=== PATIENT | female | born 1955 | race Hispanic/Latino ===

== ENCOUNTER 2017-06-24 06:20 | Emergency (ER) | payer OTHER ==
[~2017-06-24] VITALS: Ht 162.6 cm; Wt 81.6 kg
[~2017-06-24 06:20] MED LIST: ACYCLOVIR200 MG PO; AMLODIPINE BESY10 MG PO; Aspirin PO; CEFUROXIME250 MG PO; CIPRO500 MG PO; COLACE100 MG PO; DIFLUCAN200 MG PO; DIFLUNISAL500 MG PO; DITROPAN XL10 MG PO; GABAPENTIN100 MG PO; GLUCOTROL XL5 MG PO; JANUMET 50-1,01 EACH PO; JANUMET XR 50-1 EAC1 PO; KEFLEX500 MG PO; KETOROLAC TROME10 MG PO; LEVAQUIN500 MG PO; LOPRESSOR25 MG PO; LOSARTAN POTASS25 MG PO; LOSARTAN-HCTZ1 EACH PO; METFORMIN HCL500 MG PO; METOPROLOL TART25 MG PO; OMEPRAZOLE40 MG PO; PREDNISONE5 MG PO; PYRIDIUM200 MG PO; SUCRALFATE1 GM PO; TRICOR145 MG PO; ULTRAM50 MG PO; VYTORIN 10-401 EACH PO
--- OUTSIDE RECORDS SUMMARY | 2017-06-24 06:23 | XMS REPORT ---
[facility] Address Unknown Phone Unavailable Care Team Providers Care Nail Kegger Name Role Phone QUIANA WHALEY Unavailable Unavailable Problems This patient has no known problems. Allergies, Adverse Reactions, Alerts This patient has no known allergies or adverse reactions. Medications This patient has no known medications. Results Test Description Test Time Test Comments Text Results Atomic Results Result Comments CHEST SINGLE (PORTABLE) [place] [address] Patient Name: CRISPIN LANGLEY MR #: [id number] : 1955 Age/Sex: 61/F Req #: [id number] Adm Physician: Ordered by: QUIANA WHALEY MD Report #: [id number] Location: ER Room/Bed: Procedure: [id number] DX/CHEST SINGLE (PORTABLE) Exam Date: Exam Time: REPORT STATUS: Signed PROCEDURE: CHEST SINGLE ( PORTABLE) COMPARISON: Chest x-ray 12/19/16. INDICATIONS: COUGH FINDINGS: LUNGS: No significant pulmonary parenchymal abnormalities. Normal pulmonary vascularity. CARDIAC: Normal size cardiac silhouette. MEDIASTINUM: Normal. PLEURA: Normal. BONES: No focal osseous lesions. OTHER: Negative. CONCLUSION: No acute cardiopulmonary process. Dictated by: Gildardo Najera M.D. on 2016 at 19:17 Electronically approved by: Gildardo Najera M.D. on 10/04 /2017 at 19:17 Dictated By: GILDARDO NAJERA MD 16 Transcribed By : KALYAN on 02/17/171916 COPY TO: QUIANA WHALEY MD
[2017-06-24 07:04] LABS: BASOPHILS % 0.3 % (0.0-1.0); EOSINOPHILS % 0.2 % (0.0-6.0); HEMATOCRIT 35.6 % (34.2-44.1); HEMOGLOBIN 11.9 g/dL (12.0-16.0); LYMPHOCYTES % 16.2 % (18.0-39.1); MEAN CORPUSCULAR HEMOGLOBIN 28.7 pg (28-32); MEAN CORPUSCULAR HGB CONC 33.4 g/dL (31-35); MEAN CORPUSCULAR VOLUME 85.8 fL (81-99); MONOCYTES # (AUTO) 0.2 (0.2-0.8); MONOCYTES % 3.2 % (4.4-11.3); NEUTROPHILS # (AUTO) 5.1 (2.1-6.9); NEUTROPHILS % 79.6 % (38.7-80.0); PLATELET COUNT 183 x10e3/uL (140-360); RED BLOOD COUNT 4.15 x10e6/uL (3.6-5.1); RED CELL DISTRIBUTION WIDTH 14.6 % (11.7-14.4)
[2017-06-24] MEDS ORDERED: ALBUTEROL/IPRATROPIUM 3 ML NEB NEB ONE (07:15)
[2017-06-24 07:18] LABS: ALANINE AMINOTRANSFERASE 55 IU/L (0-55); ALBUMIN 3.8 g/dL (3.5-5.0); ALKALINE PHOSPHATASE 93 IU/L (40-150); ANION GAP 21.7 mmol/L (8-16); BLOOD UREA NITROGEN 18 mg/dL (7-26); BUN/CREATININE RATIO 17 (6-25); CALCIUM 9.4 mg/dL (8.4-10.2); CARBON DIOXIDE 19 mmol/L (22-29); CHLORIDE 100 mmol/L (98-107); CREATINE KINASE 165 IU/L (29-168); CREATININE, SERUM 1.09 mg/dL (0.57-1.11); EST GLOMERULAR FILTRATION RATE 51 ML/MIN (60-); POTASSIUM 3.7 mmol/L (3.5-5.1); SODIUM 137 mmol/L (136-145)
[2017-06-24 07:23] LABS: GLUCOSE 446 mg/dL (74-118)
[2017-06-24] MEDS ORDERED: INSULIN REGULAR, HUMAN 100 UNIT/1 ML 3ML VIAL IV ONE (07:30)
[2017-06-24] MEDS: SODIUM CHLORIDE 0.9% 1000ML 1,000 ML IV SCH ×2 (07:33→07:53)
--- NOTE | 2017-06-24 07:37 | Diagnostic Imaging Report ---
PROCEDURE: A single AP view of the chest. COMPARISON: Portable chest 02/17/2017. INDICATIONS: SHORTNESS OF BREATH. COUGH FINDINGS: Lines/tubes: None. Lungs: The lungs are well inflated and clear. There is no evidence of pneumonia or pulmonary edema. Bibasilar atelectasis. Pleura: There is no pleural effusion or pneumothorax. Heart and mediastinum: The heart and the mediastinum are unremarkable. Bones: No acute bony abnormality. Degenerative changes of the thoracic spine. IMPRESSION: No acute radiographic abnormality. Dictated by: Brendan Tracey M.D. on 06/24/2017 at 7:47 Electronically approved by: Brendan Tracey M.D. on 06/24/2017 at 7:47
[2017-06-24] MEDS ORDERED: SODIUM CHLORIDE 0.9% 1000ML 1,000 ML ONE (07:40)
[2017-06-24] MEDS ORDERED: SODIUM CHLORIDE 0.9% 1000ML 1,000 ML IV SCH (07:45)
[2017-06-24 10:09] LABS: ABG HCO3 22 mmol/L (23-28); ABG PCO2 34 mmHg (41-51); ABG PH 7.43 (7.31-7.41); ABG PO2 74 mmHg (80-105)
== END 2017-06-24 10:19 | disposition home or self-care (01) ==
LOC: ER 06:20
DX: R07.9 Chest pain, unspecified (principal); R06.02 Shortness of breath
CPT/HCPCS: 36415; 36600; 71045; 80053; 82550; 82553; 82805; 83880; 84484; 85025; 87400; 93005; 94640; 99284; J7030

== ENCOUNTER 2017-09-23 03:05 | Emergency (ER) | payer OTHER ==
[~2017-09-23] VITALS: Ht 162.6 cm; Wt 83.9 kg
--- OUTSIDE RECORDS SUMMARY | 2017-09-23 03:08 | XMS REPORT | Continuity of Care Document ---
Author Author [facility] Organization [facility] Address [address] [place] [address] Phone Unavailable Care Team Providers Care Clinic Clerk Name Role Phone NONSTAFF PCP Unavailable Insurance Providers Guarantor Crispin Cantu Address [address] [place] [address] Email [email or web address] Health Choice Excha Policy Number [id number] Subscriber's Name Crispin Cantu Relationship 18 Self / Same As Patient Advance Directives Directive Response Recorded Date/Time Does the patient have an advance directive? No 01/29/17 11:17am If yes, is advance directive on file with [facility]? No 01/29/17 11:17am If not on file with [facility] will patient provide a copy? No 01/29/17 11:17am Do you have a Directive to Physician? No 06/24/17 6:27am Do you have a Medical Power of Storeperson? No 06/24/17 6:27am Do you have an out of hospital Do Not Resuscitate Order? No 06/24/17 6:27am Do you have any special needs we should be aware of? No 06/24/17 6:27am Do you have a support person here with you today? Yes 06/24/17 6:27am Did patient receive Notice of Privacy Practices? Yes 06/24/17 6:27am Did patient receive patient rights and responsibilities? Yes 06/24/17 6:27am Problems Medical Problem Onset Date Status Anxiety Unknown Acute Bronchitis Unknown Acute Chest pain 11/27/2015 Acute Dehydration 03/03/2015 Acute Diabetes 11/27/2015 Acute Gastroenteritis 03/03/2015 Acute Near syncope Unknown UTI (urinary tract infection) 03/03/2015 Acute UTI (urinary tract infection) Unknown Ureteral stone 02/14/2015 Acute Medications Current Home Medications Medication Dose Units Route Directions Days Qty Instructions Start Date Docusate Sodium (Colace) 100 Mg Cap 100 Mg Oral Twice A Day 30 Cap Fenofibrate (Tricor) 145 Mg Tab 145 Mg Oral Daily 30 Tab 11/30/15 Gabapentin 100 Mg Capsule 100 Mg Oral Every 12 Hours Levofloxacin (Levaquin) 500 Mg Tablet 500 Mg Oral Daily Losartan/Hydrochlorothiazide (Losartan-Hctz 50-12.5 Mg Tab) 1 Each Tablet Oral Daily Metformin Hcl 500 Mg Tablet 1,000 Mg Oral Twice A Day 60 Tab Omeprazole 40 Mg Capsule.dr 40 Mg Oral Daily Tramadol Hcl (Ultram) 50 Mg Tablet 50 Mg Oral Every 4 Hours as needed for Pain Past Home Medications Medication Directions Ordered Status Acyclovir 200 Mg Capsule, 400 Mg Oral Three Times A Day Discontinued Amlodipine Besylate 10 Mg Tablet, 10 Mg Oral Every Morning Discontinued Aspirin 325 Mg Tabec, 81 Mg Oral Every Morning 11/30/15 Discontinued Cefuroxime Axetil (Cefuroxime) 250 Mg Tablet, 500 Mg Oral Every 12 Hours 08/31 Discontinued Cephalexin Monohydrate (Keflex) 500 Mg Capsule, 500 Mg Oral Every 6 Hours Discontinued Ciprofloxacin Hcl (Cipro) 500 Mg Tablet, 500 Mg Oral Every 12 Hours Discontinued Diflunisal (Dolobid) 500 Mg Tablet, 500 Mg Oral Daily Discontinued Diflunisal (Dolobid) 500 Mg Tablet, 500 Mg Oral Bid' Discontinued Ezetimibe/Simvastatin (Vytorin 10-40 Mg Tablet) 1 Each Tablet, 1 Tab Oral Bedtime Discontinued Glipizide (Glucotrol Xl*) 5 Mg Tab.er.24, 10 Mg Oral Every Morning Discontinued Losartan Potassium 25 Mg Tablet, 25 Mg Oral Daily Discontinued Losartan/Hydrochlorothiazide (Losartan-Hctz 50-12.5 Mg Tab) 1 Each Tablet, Oral Daily Discontinued Metformin Hcl 500 Mg Tablet, 500 Mg Oral Twice A Day Discontinued Metoprolol Tartrate 25 Mg Tablet, 12.5 Mg Oral Daily 11/30/15 Discontinued Oxybutynin Chloride (Ditropan Xl) 10 Mg Tab.er.24, 10 Mg Oral Daily Discontinued Phenazopyridine Hcl (Pyridium) 200 Mg Tablet, 200 Mg Oral Three Times A Day as needed for Bladder Spasms Discontinued Prednisone 5 Mg Tablet, 15 Mg Oral Daily Discontinued Sitagliptin Phos/Metformin Hcl (Janumet Xr 50-1,000 Mg Tablet) 1 Each Tbmp.24hr , Oral Twice A Day Discontinued Sitagliptin Phos/Metformin Hcl (Janumet 50-1,000 Mg Tablet) 1 Each Tablet, 1 Tab Oral Twice A Day Discontinued Sucralfate 1 Gm Tablet, 1 Gm Oral Before Meals And At Bedtime Discontinued Social History Social History Problem Response Recorded Date/Time Onset Date Status Hx Psychiatric Problems No 01/29/2017 11:17am Not Applicable Not Applicable Hx Eating Disorder No 01/29/2017 11:17am Not Applicable Not Applicable Hx Substance Use Disorder No 01/29/2017 11:17am Not Applicable Not Applicable Hx Depression No 01/29/2017 11:17am Not Applicable Not Applicable Hx Alcohol Use No 01/29/2017 11:17am Not Applicable Not Applicable Hx Substance Use Treatment No 01/29/2017 11:17am Not Applicable Not Applicable Hx Physical Abuse No 01/29/2017 11:17am Not Applicable Not Applicable Smoking Status Start Date Stop Date Never Smoker Hospital Discharge Instructions No hospital discharge instruction information available. Plan of Care Discharge Date 06/24/17 10:19am Disposition HOME, SELF-CARE Condition at Discharge Stable Instructions/Education Provided Generalized Anxiety Disorder Hyperglycemia Forms Provided Work/School Excuse Prescriptions See Medication Section Functional Status No functional status information available. Allergies, Adverse Reactions, Alerts Allergen Type Severity Reaction Status Last Updated Hydrocodone Allergy Unknown itching Active 06/24/17 Tramadol Allergy Unknown itching Active 06/24/17 Ketorolac Allergy Unknown itching Active 06/24/17 Immunizations No immunization information available. Vital Signs Acute Vital Signs Vital Response Date/Time Temperature (Fahrenheit) 97.3 degrees F (97.6 - 99.5) 02/01/2017 11:53am Pulse Pulse Rate (adult) 66 bpm (60 - 90) 06/24/2017 7:50am Respiratory Rate 18 bpm (12 - 24) 06/24/2017 7:50am Blood Pressure 104/78 mm Hg 02/17/2017 7:22pm Height 5 ft 4 in 06/24/2017 6:25am Weight 180 lb 06/24/2017 6:25am Body Mass Index 30.9 kg/m^2 06/24/2017 6:25am Results Laboratory Results Test Name Result Units Flags Reference Collection Date/Time Result Date/ Time Comments Amylase Level 42 U/L 25-125 10/11/2016 11:25am 10/11/2016 12:04pm Lipase 34 U/L 8-78 10/11/2016 11:25am 10/11/2016 12:04pm Urine Opiates Screen POSITIVE H NEGATIVE 12/19/2016 6:36am 12/19/2016 7:08am This test provides only a screen. Positive results should be repeated by a confirmatory test. Urine Barbiturates Screen NEGATIVE NEGATIVE 12/19/2016 6:36am 2016 7:08am ALL TESTS PERFORMED MANUALLY ON SIGNIFY ER TEST Urine Amphetamines Screen NEGATIVE NEGATIVE 12/19/2016 6:36am 2016 7:08am Urine Benzodiazepines Screen NEGATIVE NEGATIVE 12/19/2016 6:36am 09/2016 7:08am Urine Cocaine Screen NEGATIVE NEGATIVE 12/19/2016 6:36am 12/19/2016 7 :08am Urine Cannabinoids Screen NEGATIVE NEGATIVE 12/19/2016 6:36am 2016 7:08am THESE RESULTS ARE FOR MEDICAL TREATMENT ONLY *THIS REPORT CONTAINS UNCONFIRMED SCREENING RESULTS* POSITIVE RESULTS WILL BE CONFIRMED BY REFERENCE LAB UPON REQUEST CUT-OFF DRUG CLASS CONCENTRATION ng/mL Amphetamines 1000 Methamphetamines 1000 Cocaine 300 Opiate 300 Phencyclidine 25 Cannabinoid 50 Barbiturates 300 Benzodiazepine 300 Methadone 300 Acetaminophen Level < 3 ug/mL L 1012/19/2016 6:36am 12/19/2016 7: 34am Thyroid Stimulating Hormone (TSH) 2.143 uIU/mL 0.350-4.940 12/19/2016 6: 36am 12/19/2016 8:21am Ethyl Alcohol Level < 10.0 mg/dL 0.0-10.0 12/19/2016 6:36am 12/19/2016 7:30am Salicylates Level < 5.0 mg/dL 0-30 12/19/2016 6:36am 12/19/2016 7:30am Bedside Glucose 200 mg/dL H 70-120 02/01/2017 11:37am 02/01/2017 11: 46am Meter ID: [id number] Urine Color YELLOW YELLOW 02/17/2017 3:00pm 02/17/2017 6:08pm Urine Clarity CLEAR CLEAR 02/17/2017 3:00pm 02/17/2017 6:08pm Urine Specific [place] 1.020 1.010-1.025 02/17/2017 3:00pm 2016 6:08pm Urine pH 5 5 - 7 02/17/2017 3:00pm 02/17/2017 6:08pm Urine Leukocyte Esterase 2+ H NEGATIVE 02/17/2017 3:00pm 02/17/2017 6: 08pm Urine Nitrite NEGATIVE NEGATIVE 02/17/2017 3:00pm 02/17/2017 6:08pm Urine Protein 1+ H NEGATIVE 02/17/2017 3:00pm 02/17/2017 6:08pm Urine Glucose (UA) NEGATIVE NEGATIVE 02/17/2017 3:00pm 02/17/2017 6: 08pm Urine Ketones NEGATIVE NEGATIVE 02/17/2017 3:00pm 02/17/2017 6:08pm Urine Urobilinogen 0.2 mg/dL 0.2 - 1 02/17/2017 3:00pm 02/17/2017 6: 08pm Urine Bilirubin 1+ H NEGATIVE 02/17/2017 3:00pm 02/17/2017 6:08pm Urine Blood 4+ H NEGATIVE 02/17/2017 3:00pm 02/17/2017 6:08pm Urine WBC 21-50 /HPF H 0-5 02/17/2017 3:00pm 02/17/2017 6:28pm Urine RBC 11-20 /HPF H 0-5 02/17/2017 3:00pm 02/17/2017 6:28pm Urine Bacteria FEW /HPF NONE 02/17/2017 3:00pm 02/17/2017 6:28pm Urine Epithelial Cells FEW /LPF NONE 02/17/2017 3:00pm 02/17/2017 6: 28pm Urine Transitional Epithelial Cells FEW H NONE 02/17/2017 3:00pm 02/17 6:28pm Urine Hyaline Casts 2-5 H 0-1 02/17/2017 3:00pm 02/17/2017 6:28pm White Blood Count 6.34 x10e3/uL 4.8-10.8 06/24/2017 6:43am 06/24/2017 7 :08am Red Blood Count 4.15 x10e6/uL 3.6-5.1 06/24/2017 6:43am 06/24/2017 7: 08am Hemoglobin 11.9 g/dL L 12.0-16.0 06/24/2017 6:43am 06/24/2017 7:08am Hematocrit 35.6 % 34.2-44.1 06/24/2017 6:43am 06/24/2017 7:08am Mean Corpuscular Volume 85.8 fL 81-99 06/24/2017 6:43am 06/24/2017 7: 08am Mean Corpuscular Hemoglobin 28.7 pg 28-32 06/24/2017 6:43am 06/24/2017 7:08am Mean Corpuscular Hemoglobin Concent 33.4 g/dL 31-35 06/24/2017 6:43am 06/24/2017 7:08am Red Cell Distribution Width 14.6 % H 11.7-14.4 06/24/2017 6:43am 2017 7:08am Platelet Count 183 x10e3/uL 140-360 06/24/2017 6:43am 06/24/2017 7: 08am Neutrophils (%) (Auto) 79.6 % 38.7-80.0 06/24/2017 6:43am 06/24/2017 7: 08am Lymphocytes (%) (Auto) 16.2 % L 18.0-39.1 06/24/2017 6:43am 06/24/2017 7 :08am Monocytes (%) (Auto) 3.2 % L 4.4-11.3 06/24/2017 6:43am 06/24/2017 7: 08am Eosinophils (%) (Auto) 0.2 % 0.0-6.0 06/24/2017 6:43am 06/24/2017 7: 08am Basophils (%) (Auto) 0.3 % 0.0-1.0 06/24/2017 6:43am 06/24/2017 7:08am IM GRANULOCYTES % 0.5 % 0.0-1.0 06/24/2017 6:43am 06/24/2017 7:08am Neutrophils # (Auto) 5.1 2.1-6.9 06/24/2017 6:43am 06/24/2017 7:08am Lymphocytes # (Auto) 1.0 1.0-3.2 06/24/2017 6:43am 06/24/2017 7:08am Monocytes # (Auto) 0.2 0.2-0.8 06/24/2017 6:43am 06/24/2017 7:08am Eosinophils # (Auto) 0.0 0.0-0.4 06/24/2017 6:43am 06/24/2017 7:08am Basophils # (Auto) 0.0 0.0-0.1 06/24/2017 6:43am 06/24/2017 7:08am Absolute Immature Granulocyte (auto 0.03 x10e3/uL 0-0.1 06/24/2017 6: 43am 06/24/2017 7:08am Sodium Level 137 mmol/L 136-145 06/24/2017 6:43am 06/24/2017 7:23am Potassium Level 3.7 mmol/L 3.5-5.1 06/24/2017 6:43am 06/24/2017 7:23am Chloride Level 100 mmol/L 98-107 06/24/2017 6:43am 06/24/2017 7:23am Influenza Virus Types A,B Antigen NEGATIVE NEGATIVE 06/24/2017 7:07am 06/24/2017 7:42am Carbon Dioxide Level 19 mmol/L L 22-29 06/24/2017 6:43am 06/24/2017 7: 23am Anion Gap 21.7 mmol/L H 8-16 06/24/2017 6:43am 06/24/2017 7:23am Blood Urea Nitrogen 18 mg/dL 7-06/24/2017 6:43am 06/24/2017 7:23am Creatinine 1.09 mg/dL 0.57-1.11 06/24/2017 6:43am 06/24/2017 7:23am BUN/Creatinine Ratio 17 6-25 06/24/2017 6:43am 06/24/2017 7:23am Estimat Glomerular Filtration Rate 51 ML/MIN L 60- 06/24/2017 6:43am 12/2017 7:23am Ranges were taken from the National Kidney Disease Education Program and the National Kid[employer] Foundation literature. Reference ranges: 60 or greater: Normal 16-59 (for 3 consecutive months): Chronic kidney disease 15 or less: Kidney failure Glucose Level 446 mg/dL *H 74-118 06/24/2017 6:43am 06/24/2017 7:23am Results called to JAMIN AGUILERA at 0722 on 06/24/17 by Elo Bansal. RB OK. Calcium Level 9.4 mg/dL 8.4-10.2 06/24/2017 6:43am 06/24/2017 7:23am Total Bilirubin 0.6 mg/dL 0.2-1.2 06/24/2017 6:43am 06/24/2017 7:23am Aspartate Amino Transf (AST/SGOT) 31 IU/L 5-34 06/24/2017 6:43am 2017 7:23am Alanine Aminotransferase (ALT/SGPT) 55 IU/L 0-55 06/24/2017 6:43am 12/2017 7:23am Total Protein 7.8 g/dL 6.5-8.1 06/24/2017 6:43am 06/24/2017 7:23am Albumin 3.8 g/dL 3.5-5.0 06/24/2017 6:43am 06/24/2017 7:23am Globulin 4.0 g/dL H 2.3-3.5 06/24/2017 6:43am 06/24/2017 7:23am Albumin/Globulin Ratio 1.0 0.8-2.0 06/24/2017 6:43am 06/24/2017 7: 23am Alkaline Phosphatase 93 IU/L 40-150 06/24/2017 6:43am 06/24/2017 7: 23am B-Type Natriuretic Peptide 46.3 pg/mL 0-100 06/24/2017 6:43am 2017 7:35am Creatine Kinase 165 IU/L 29-168 06/24/2017 6:43am 06/24/2017 7:23am Creatine Kinase MB 1.40 ng/mL 0.00-5.00 06/24/2017 6:43am 06/24/2017 7: 35am Troponin I < 0.001 ng/mL 0-0.300 06/24/2017 6:43am 06/24/2017 7:35am Arterial Blood pH 7.43 H 7.31-7.41 06/24/2017 9:55am 06/24/2017 10: 10am Arterial Blood Partial Pressure CO2 34 mmHg L 41-51 06/24/2017 9:55am 10:10am Arterial Blood Partial Pressure O2 74 mmHg L 80-105 06/24/2017 9:55am 10:10am Arterial Blood HCO3 22 mmol/L L 23-28 06/24/2017 9:55am 06/24/2017 10: 10am Arterial Blood Base Excess -2.0 mmol/L -2 - 3 06/24/2017 9:55am 2017 10:10am Arterial Blood Oxygen Saturation 95.0 % 95-98 06/24/2017 9:55am 2017 10:10am Procedures Procedure Status Date Provider(s) STRAPPING OF KNEE Completed 12/09/16 TANI LACEY MD SUPPLEMENT PELVIC SUBCU/FASCIA W SYNTH SUB, OPEN Completed 01/29/17 JANETT CAR MD SUPPLEMENT VAGINA WITH SYNTHETIC SUBSTITUTE, OPEN APPROACH Completed JANETT CAR MD FLUOROSCOPY KIDNEY, URETER, BLADDER, L W L OSM CONTRAST Completed 01/29/17 JANETT CAR MD FLUOROSCOPY KIDNEY, URETER, BLADDER, R W L OSM CONTRAST Completed 01/29/17 JANETT CAR MD DRAINAGE OF BLADDER WITH DRAINAGE DEVICE, ENDO Completed 01/29/17 JANETT CAR MD Computed tomography of abdomen and pelvis with contrast Active 10/11/16 QUIANA WHALEY MD Encounters Encounter Location Arrival/Admit Date Discharge/Depart Date Attending Provider Departed Emergency Room [facility] 06/24/17 6:20am 10:19am KULWINDER KUMAR MD Departed Emergency Room [facility] 02/17/17 2:47pm 7:29pm QUIANA WHALEY MD Discharged [facility]patient [facility] 01/29/17 10:25am 1:08pm MARILYN OLIVIA MD Departed Emergency Room [facility] 12/19/16 5:55am 3:02pm QUIANA WHALEY MD Departed Emergency Room [facility] 12/09/16 6:12pm 8:30pm QUIANA WHALEY MD Departed Emergency Room [facility] 10/11/16 11:00am 10/11 2:33pm QUIANA WHLAEY MD
[2017-09-23] MEDS ORDERED: ACETAMIN/BUTALBITAL/CAFFEINE TAB PO ONE (03:15)
[2017-09-23] MEDS ORDERED: METOCLOPRAMIDE HCL 10 MG/2ML VIAL IV ONE (03:15)
[2017-09-23] MEDS ORDERED: DIPHENHYDRAMINE HCL INJ 50 MG/ML VIAL IV ONE (03:15)
[2017-09-23] MEDS ORDERED: SODIUM CHLORIDE 0.9% 1000ML 1,000 ML IV ONE (03:15)
[2017-09-23 03:36] LABS: BASOPHILS % 0.5 % (0.0-1.0); EOSINOPHILS # (AUTO) 0.3 (0.0-0.4); EOSINOPHILS % 4.4 % (0.0-6.0); HEMATOCRIT 33.5 % (34.2-44.1); HEMOGLOBIN 11.1 g/dL (12.0-16.0); LYMPHOCYTES % 33.6 % (18.0-39.1); MEAN CORPUSCULAR HEMOGLOBIN 28.2 pg (28-32); MEAN CORPUSCULAR HGB CONC 33.1 g/dL (31-35); MONOCYTES # (AUTO) 0.4 (0.2-0.8); MONOCYTES % 7.4 % (4.4-11.3); NEUTROPHILS # (AUTO) 3.2 (2.1-6.9); NEUTROPHILS % 53.6 % (38.7-80.0); PLATELET COUNT 168 x10e3/uL (140-360); RED BLOOD COUNT 3.94 x10e6/uL (3.6-5.1)
[2017-09-23 03:46] LABS: BILIRUBIN,URINE NEGATIVE (NEGATIVE); CLARITY,URINE CLEAR (CLEAR); COLOR,URINE YELLOW (YELLOW); KETONES,URINE NEGATIVE (NEGATIVE); LEUKOCYTE ESTERASE ,URINE NEGATIVE (NEGATIVE); NITRITE,URINE NEGATIVE (NEGATIVE); PROTEIN,URINE DIPSTICK NEGATIVE (NEGATIVE); URINE UROBILINOGEN 0.2 mg/dL (0.2 - 1)
[2017-09-23 03:51] LABS: ANION GAP 13.9 mmol/L (8-16); BLOOD UREA NITROGEN 16 mg/dL (7-26); BUN/CREATININE RATIO 19 (6-25); CALCIUM 9.3 mg/dL (8.4-10.2); CARBON DIOXIDE 22 mmol/L (22-29); CHLORIDE 107 mmol/L (98-107); CREATININE, SERUM 0.84 mg/dL (0.57-1.11); EST GLOMERULAR FILTRATION RATE > 60 ML/MIN (60-); GLUCOSE 119 mg/dL (74-118); POTASSIUM 3.9 mmol/L (3.5-5.1); SODIUM 139 mmol/L (136-145)
[2017-09-23 04:04] LABS: BACTERIA,URINE RARE /HPF; EPITHELIAL CELLS,URINE FEW /LPF; TRANSITIONAL EPI CELLS,URINE RARE; WBC,URINE (MAN) 0-5 /HPF (0-5)
--- NOTE | 2017-09-23 04:40 | Diagnostic Imaging Report ---
EXAMINATION: Head CT HISTORY: Left-sided headache for last 7 days COMPARISON: Head CT of 07/17/2016 and brain MRI 07/18/2016 TECHNIQUE: Multidetector axial images were obtained without contrast from the foramen magnum to the vertex . The images were reconstructed using brain and bone algorithms. Thin section brain images were reformatted into coronal and sagittal planes. Intravenous contrast: None. Motion/streaking artifact limits the evaluation of the skull base and posterior cranial fossa. FINDINGS: Parenchyma: 1. A few scattered white matter hypodensities, most likely minimal nonspecific chronic microvascular ischemic changes. 2. No mass or hemorrhage. No CT evidence of acute territorial vascular insult. Extra-axial spaces:No abnormal density. No extra-axial fluid collections Brain volume: Normal for age. Ventricles: No hydrocephalus or displacement. Arteries: No density suggestive of thrombus. Dural sinuses: No abnormal density. Extra-axial spaces: No abnormal density. Foramen magnum: No mass, Chiari malformation, or basilar invagination. Sella: No obvious mass. Paranasal/mastoid sinuses: Imaged portions unremarkable. Skull/Scalp: No lytic or blastic lesions. No fractures. IMPRESSION: 1. No acute intracranial abnormality. 2. Minimal chronic microvascular ischemic changes, grossly unchanged from prior head CT on 07/17/2016 and MRI on 07/18/16 Signed by: Dr. Rocio Anderson M.D. on 09/23/2017 4:36 AM
== END 2017-09-23 04:55 | disposition home or self-care (01) ==
LOC: ER 03:05
DX: G44.219 Episodic tension-type headache, not intractable (principal); I10 Essential (primary) hypertension; E11.40 Type 2 diabetes mellitus with diabetic neuropathy, unspecified; E78.00 Pure hypercholesterolemia, unspecified; K21.9 Gastro-esophageal reflux disease without esophagitis; K44.9 Diaphragmatic hernia without obstruction or gangrene; F41.8 Other specified anxiety disorders; Z79.84 Long term (current) use of oral hypoglycemic drugs
CPT/HCPCS: 36415; 70450; 80048; 81001; 85025; 96374; 96375; 99284; J1200; J2765; J7030

== ENCOUNTER 2018-08-08 09:31 | Emergency (ER) | payer OTHER ==
[~2018-08-08] VITALS: Ht 160 cm; Wt 72.6 kg
--- OUTSIDE RECORDS SUMMARY | 2018-08-08 09:35 | XMS REPORT ---
Author Author Jenniffer Cueva Organization [employer] Address Unknown Phone Unavailable Care Team Providers Care Deboning Team Leader Name Role Phone Jenniffer Cueva CP Unavailable Allergies, Adverse Reactions, Alerts Substance Reaction Event Type Vicodin Info Not Available Drug Allergy codiene Info Not Available Non Drug Allergy torodol Info Not Available Non Drug Allergy Encounters Encounter Location Date lab results follow up [facility] December 14, 2014 Unknown [facility] Dec 17, 2014 pt is needing a steroid rx [facility] Dec 18, 2014 Problems Problem Type Condition ICD-9 Code Onset Dates Condition Status Assessment osteoporosis screening V82.81 Active Assessment Pain in joint, shoulder region 719.41 Active Assessment Pain in joint, multiple sites 719.49 Active Problem Hypertension 997.91 Active Problem monitorring of [employer] V58.69 Active Problem Diabetes mellitus without mention of complication, type II or unspecified type, uncontrolled 250.02 Active Problem Elevated LFTs 794.8 Active Assessment Polymyositis 710.4 Active Problem Polymyositis 710.4 Active Problem prison use of steroids V58.65 Active Assessment Elevated LFTs 794.8 Active Assessment Hepatitis B carrier V02.61 Active Assessment Counseling NOS V65.40 Active Medications Medication Code System Code Instructions Start Date End Date Status Dosage [facility] [address]-66 40 MG Orally Once a day November 12, 2014 Active 1 capsule Losartan Potassium [facility] [address]-42 25 MG Orally Once a day Active 1 tablet [facility] [address]-60 40 MG Orally Once a day Active 1 capsule Diflunisal [facility] [address]-66 500 MG Orally Twice a day as needed Mar 12, 2015 Active 1 tablet Gabapentin [facility] [address]-32 100 MG Orally at bedtime Active 1 capsule Vytorin [facility] [address]-42 10-40 MG Orally at bedtime Active 1 tablet Ciprofloxacin [facility] [address]-95 500 mg Twice a day Active 5 ml PredniSONE [facility] [address]-19 10 MG Orally Once a day December 14, 2014 Jan 13, 2015 Active 1.5 tablet with food or milk Kali [facility] [address]-90 50-1000 MG Orally Twice a day Active 1 tablet with meals Social History Social History Element Qualifiers Date Reported IV Drug abuse no. December 14, 2014 Smoking status: no. Are you a: Never Smoker December 14, 2014 alcohol no. December 14, 2014 Vital Signs Date/Time: December 14, 2014 Height 63 in Blood Pressure Diastolic 66 mm Hg Blood Pressure Systolic 114 mm Hg Weight 226.8 lbs Results HEPATIC FUNCTION Bilirubin, Direct(-<0.4 mg/dL) <0.2 Total Protein(-5.9-8.4 g/dL) 7.1 AST(-<32 U/L) 34 ALT(-<33 U/L) 33 Alk Phos(-40-156 U/L) 63 Albumin(-3.5-5.2 g/dL) 3.8 Bilirubin, Total(-<1.2 mg/dL) 0.3 HEPATITIS B SURFACE ANTIGEN HEP. B SURF. Ag(-Negative ) Negative HEPATITIS B CORE ANTIBODY HEP. B CORE Ab.(-Negative ) Positive HEPATITIS B SURFACE ANTIBODY HEP. B SURF. Ab.(-Negative ) Negative CPK (CK), TOTAL CK(-26-192 U/L) 140 HEPATITIS B CORE ANTIBODY IgM HEP. B CORE Ab., IgM(-Negative ) Negative ESR (SED-RATE) ESR (SED-RATE)(-<26 mm/hr) 19 Summary Purpose [employer] Submission
--- OUTSIDE RECORDS SUMMARY | 2018-08-08 09:35 | XMS REPORT | Continuity of Care Document ---
Author Author [facility] Interface Address Unknown Phone Unavailable Problems Problem Status Onset Date Classification Date Reported Comments Source Chest pain Active 11/27/2015 Problem 09/23/2017 [facility] Diabetes Active 11/27/2015 Problem 09/23/2017 [facility] Dehydration Active 03/03/2015 Problem 09/23/2017 [facility] Gastroenteritis Active 03/03/2015 Problem 09/23/2017 [facility] UTI Active 03/03/2015 Problem 09/23/2017 [facility] Ureteral stone Active 02/14/2015 Problem 09/23/2017 [facility] Hypertension Active Problem 01/24/2015 Yu Lux monitorring of highrisk meds Active Problem 01/24/2015 [facility] Diabetes mellitus without mention of complication, type II or unspecified type, uncontrolled Active Problem 01/24/2015 Yu Lux Elevated LFTs Active Problem 01/24/2015 Yu Lux Polymyositis Active Problem 01/24/2015 Yu 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 Active Problem 01/24/2015 Yu Lux Hepatitis B carrier Active Diagnosis 01/15/2015 Yu uLx osteoporosis screening Active Diagnosis 12/17/2014 Yu Lux Pain in joint, shoulder region Active Diagnosis 12/17/2014 Yuiona [place] Pain in joint, multiple sites Active Diagnosis 12/17/2014 Yu Lux Counseling NOS Active Diagnosis 12/17/2014 Yu Lux Anxiety Active Problem 09/23/2017 [facility] Bronchitis Active Problem 09/23/2017 [facility] Near syncope Active Problem 09/23/2017 [facility] Medications Medication Details Route Status Patient Instructions Ordering Provider Order Date Source Diflunisal (Dolobid) 500 Mg Tablet, 500 Mg Oral Daily Active 12/19/2016 [facility] Ezetimibe/Simvastatin (Vytorin 10-40 Mg Tablet) 1 Each Tablet, 1 Tab Oral Bedtime Active 12/19/2016 [facility] Metformin Hcl 500 Mg Tablet, 500 Mg Oral Twice A Day Active 12/19/2016 [facility] Cefuroxime Axetil (Cefuroxime) 250 Mg Tablet, 500 Mg Oral Every 12 Hours Active [facility] 07/18/2016 [facility] Sitagliptin Phos/Metformin Hcl (Janumet Xr 50-1,000 Mg Tablet) 1 Each Tbmp.24hr, Oral Twice A Day Active 02/14/2016 [facility] Fenofibrate (Tricor) 145 Mg Tab Daily Active Marilyn 11/30/2015 [facility] Aspirin 325 Mg Tabec, 81 Mg Oral Every Morning Active Marilyn 11/30/2015 [facility] Metoprolol Tartrate 25 Mg Tablet, 12.5 Mg Oral Daily Active Mariyln 11/30/2015 [facility] Acyclovir 200 Mg Capsule, 400 Mg Oral Three Times A Day Active 04/09/2015 [facility] Amlodipine Besylate 10 Mg Tablet, 10 Mg Oral Every Morning Active 04/09/2015 [facility] Ciprofloxacin Hcl (Cipro) 500 Mg Tablet, 500 Mg Oral Every 12 Hours Active 04/09/2015 [facility] Diflunisal (Dolobid) 500 Mg Tablet, 500 Mg Oral Bid' Active 04/09/2015 [facility] Glipizide (Glucotrol Xl*) 5 Mg Tab.er.24, 10 Mg Oral Every Morning Active 04/09/2015 [facility] Oxybutynin Chloride (Ditropan Xl) 10 Mg Tab.er.24, 10 Mg Oral Daily Active 04/09/2015 [facility] Phenazopyridine Hcl (Pyridium) 200 Mg Tablet, 200 Mg Oral Three Times A Day as needed for Bladder Spasms Active 04/09/2015 [facility] Sucralfate 1 Gm Tablet, 1 Gm Oral Before Meals And At Bedtime Active 04/09/2015 [facility] Diflunisal 1 tablet Orally Active 500 MG Orally Twice a day as needed [facility] 03/12/[address] [facility] Cephalexin Monohydrate (Keflex) 500 Mg Capsule, 500 Mg Oral Every 6 Hours Active 03/05/2015 [facility] Losartan/Hydrochlorothiazide (Losartan-Hctz 50-12.5 Mg Tab) 1 Each Tablet, Oral Daily Active 02/21/2015 [facility] Prednisone 5 Mg Tablet, 15 Mg Oral Daily Active 02/21/2015 [facility] Sitagliptin Phos/Metformin Hcl (Janumet 50-1,000 Mg Tablet) 1 Each Tablet, 1 Tab Oral Twice A Day Active 02/21/2015 [facility] Losartan Potassium 25 Mg Tablet, 25 Mg Oral Daily Active 01/30/2015 [facility] PredniSONE 1.5 tablet with food or milk Orally Active 10 MG Orally Once a day [facility] 12/14/2014 [facility] Omeprazole 1 capsule Orally Active 40 MG Orally Once a day [facility] 11/12/2014 [facility] Losartan Potassium 1 tablet Orally Active 25 MG Orally Once a day [facility] Omeprazole 1 capsule Orally Active 40 MG Orally Once a day [facility] Gabapentin 1 capsule Orally Active 100 MG Orally at bedtime [facility] Vytorin 1 tablet Orally Active 10-40 MG Orally at bedtime [facility] Ciprofloxacin 5 ml NA Active 500 mg Twice a day [facility] Janumet 1 tablet with meals Orally Active 50-1000 MG Orally Twice a day [facility] Docusate Sodium (Colace) 100 Mg Cap Twice A Day Active [facility] Gabapentin 100 Mg Capsule Every 12 Hours Active [facility] Levofloxacin (Levaquin) 500 Mg Tablet Daily Active [facility] Losartan/Hydrochlorothiazide (Losartan-Hctz 50-12.5 Mg Tab) 1 Each Tablet Daily Active [facility] Metformin Hcl 500 Mg Tablet Twice A Day Active [facility] Omeprazole 40 Mg Capsule.dr Hugo Active [facility] Tramadol Hcl (Ultram) 50 Mg Tablet Every 4 Hours as needed for Pain Active [facility] Allergies, Adverse Reactions, Alerts Substance Category Reaction Severity Reaction type Status Date Reported Comments Source Vicodin Adverse Reaction Info Not Available Adverse Reaction Active 12/14/2014 Yu Lux codiene Adverse Reaction Info Not Available Adverse Reaction Active 12/14/2014 Yu Lux torodol Adverse Reaction Info Not Available Adverse Reaction Active 12/14/2014 [facility] Lux Hydrocodone itching Unknown Allergy to Substance Active 06/24/2017 [facility] Tramadol itching Unknown Allergy to Substance Active 06/24/2017 [facility] Ketorolac itching Unknown Allergy to Substance Active 06/24/2017 [facility] Immunizations Immunization Date Given Site Status Last Updated Comments Source Results Order Name Results Value Reference Range Date Interpretation Comments Source Automated blood basophil count (count/volume) Automated blood basophil count (count/volume) 0.0 0.0 - 0.1 09/23/2017 [facility] Automated blood basophil count as percentage of total leukocytes Automated blood basophil count as percentage of total leukocytes 0.5 0.0 - 1.0 09/23/2017 [facility] Automated blood eosinophil count Automated blood eosinophil count 0.3 0.0 - 0.4 09/23/2017 [facility] Automated blood eosinophil count as percentage of total leukocytes Automated blood eosinophil count as percentage of total leukocytes 4.4 0.0 - 6.0 09/23/2017 [facility] Automated blood hematocrit (volume fraction) Automated blood hematocrit (volume fraction) 33.5 34.2 - 44.1 09/23/2017 [facility] Automated blood lymphocyte count as percentage ot total leukocytes Automated blood lymphocyte count as percentage ot total leukocytes 33.6 18.0 - 39.1 09/23/2017 [facility] Automated blood monocyte count as percentage of total leukocytes Automated blood monocyte count as percentage of total leukocytes 7.4 4.4 - 11.3 09/23/2017 [facility] Automated blood neutrophil count Automated blood neutrophil count 3.2 2.1 - 6.9 09/23/2017 [facility] Automated blood platelet count (count/volume) Automated blood platelet count (count/volume) 168 140 - 360 09/23/2017 [facility] Automated blood segmented neutrophil count as percentage of total leukocytes Automated blood segmented neutrophil count as percentage of total leukocytes 53.6 38.7 - 80.0 09/23/2017 [facility] Automated erythrocyte mean corpuscular hemoglobin (mass per erythrocyte) Automated erythrocyte mean corpuscular hemoglobin (mass per erythrocyte) 28.2 28 - 32 09/23/2017 [facility] Automated erythrocyte mean corpuscular hemoglobin concentration measurement (mass/volume) Automated erythrocyte mean corpuscular hemoglobin concentration measurement (mass/volume) 33.1 31 - 35 09/23/2017 [facility] Automated erythrocyte mean corpuscular volume Automated erythrocyte mean corpuscular volume 85.0 81 - 99 09/23/2017 [facility] Automated urine sediment leukocyte count by microscopy (number/high power field) Automated urine sediment leukocyte count by microscopy (number/high power field) null 0 - 5 09/23/2017 [facility] Bacteria detection in urine sediment by light microscopy Bacteria detection in urine sediment by light microscopy RARE NONE 09/23/2017 [facility] Blood erythrocytes automated count (number/volume) Blood erythrocytes automated count (number/volume) 3.94 3.6 - 5.1 09/23/2017 [facility] Blood hemoglobin measurement (moles/volume) Blood hemoglobin measurement (moles/volume) 11.1 12.0 - 16.0 09/23/2017 [facility] Blood leukocytes automated count (number/volume) Blood leukocytes automated count (number/volume) 5.92 4.8 - 10.8 09/23/2017 [facility] Blood lymphocytes count (number/volume) Blood lymphocytes count (number/volume) 2.0 1.0 - 3.2 09/23/2017 [facility] Blood monocytes automated count (number/volume) Blood monocytes automated count (number/volume) 0.4 0.2 - 0.8 09/23/2017 [facility] Epithelial cells detection in urine sediment by light microscopy Epithelial cells detection in urine sediment by light microscopy FEW NONE 09/23/2017 [facility] Erythrocytes detection in urine sediment by light microscopy Erythrocytes detection in urine sediment by light microscopy NONE 0 - 5 09/23/2017 [facility] Estimated glomerular filtration rate (GFR) determination Estimated glomerular filtration rate (GFR) determination null 60 09/23/2017 [facility] Glucose measurement Glucose measurement 119 74 - 118 09/23/2017 [facility] Serum or plasma anion gap Serum or plasma anion gap 13.9 8 - 16 09/23/2017 [facility] Serum or plasma calcium measurement (mass/volume) Serum or plasma calcium measurement (mass/volume) 9.3 8.4 - 10.2 09/23/2017 [facility] Serum or plasma carbon dioxide, total measurement (moles/volume) Serum or plasma carbon dioxide, total measurement (moles/volume) 22 22 - 29 09/23/2017 [facility] Serum or plasma chloride measurement (moles/volume) Serum or plasma chloride measurement (moles/volume) 107 98 - 107 09/23/2017 [facility] Serum or plasma creatinine measurement (mass/volume) Serum or plasma creatinine measurement (mass/volume) 0.84 0.57 - 1.11 09/23/2017 [facility] Serum or plasma potassium measurement (moles/volume) Serum or plasma potassium measurement (moles/volume) 3.9 3.5 - 5.1 09/23/2017 [facility] Serum or plasma sodium measurement (moles/volume) Serum or plasma sodium measurement (moles/volume) 139 136 - 145 09/23/2017 [facility] Serum or plasma urea nitrogen measurement (mass/volume) Serum or plasma urea nitrogen measurement (mass/volume) 16 7 - 26 09/23/2017 [facility] Serum or plasma urea nitrogen/creatinine mass ratio Serum or plasma urea nitrogen/creatinine mass ratio 19 6 - 25 09/23/2017 [facility] Specific gravity of Urine by Test strip Specific gravity of Urine by Test strip 1.020 1.010 - 1.025 09/23/2017 [facility] Transitional cells detection in urine sediment by light microscopy Transitional cells detection in urine sediment by light microscopy RARE NONE 09/23/2017 [facility] Urine clarity Urine clarity CLEAR CLEAR 09/23/2017 [facility] Urine color determination Urine color determination YELLOW YELLOW 09/23/2017 [facility] Urine erythrocytes detection Urine erythrocytes detection NEGATIVE NEGATIVE 09/23/2017 [facility] Urine glucose detection Urine glucose detection NEGATIVE NEGATIVE 09/23/2017 [facility] Urine ketones detection by automated test strip Urine ketones detection by automated test strip NEGATIVE NEGATIVE 09/23/2017 [facility] Urine leukocyte esterase detection by dipstick Urine leukocyte esterase detection by dipstick NEGATIVE NEGATIVE 09/23/2017 [facility] Urine nitrite detection Urine nitrite detection NEGATIVE NEGATIVE 09/23/2017 [facility] Urine pH measurement by automated test strip Urine pH measurement by automated test strip 6 5 - 7 09/23/2017 [facility] Urine protein measurement by test strip (mass/volume) Urine protein measurement by test strip (mass/volume) NEGATIVE NEGATIVE 09/23/2017 [facility] Urine total bilirubin measurement (mass/volume) Urine total bilirubin measurement (mass/volume) NEGATIVE NEGATIVE 09/23/2017 [facility] Urine urobilinogen measurement by test strip (mass/volume) Urine urobilinogen measurement by test strip (mass/volume) 0.2 0.2 - 1 09/23/2017 [facility] Red Cell Distribution Width 14.0 11.7 - 14.4 09/23/2017 [facility] IM GRANULOCYTES % 0.5 0.0 - 1.0 09/23/2017 [facility] Absolute Immature Granulocyte (auto 0.03 0 - 0.1 09/23/2017 [facility] Arterial blood base excess by calculation Arterial blood base excess by calculation -2.0 -2 - 3 - 2 06/24/2017 [facility] Arterial blood bicarbonate measurement (moles/volume) Arterial blood bicarbonate measurement (moles/volume) 22 23 - 28 06/24/2017 [facility] Arterial blood oxygen saturation measurement Arterial blood oxygen saturation measurement 95.0 95 - 98 06/24/2017 [facility] Arterial blood pH measurement Arterial blood pH measurement 7.43 7.31 - 7.41 06/24/2017 [facility] Arterial Blood Partial Pressure CO2 34 41 - 51 06/24/2017 [facility] Arterial Blood Partial Pressure O2 74 80 - 105 06/24/2017 [facility] Influenza virus A and B antigen identification by immunofluorescence Influenza virus A and B antigen identification by immunofluorescence NEGATIVE NEGATIVE 06/24/2017 [facility] Plasma globulin measurement (mass/volume) Plasma globulin measurement (mass/volume) 4.0 2.3 - 3.5 06/24/2017 [facility] Serum or plasma alanine aminotransferase measurement (enzymatic activity/volume) Serum or plasma alanine aminotransferase measurement (enzymatic activity/volume) 55 0 - 55 06/24/2017 [facility] Serum or plasma albumin measurement (mass/volume) Serum or plasma albumin measurement (mass/volume) 3.8 3.5 - 5.0 06/24/2017 [facility] Serum or plasma albumin/globulin mass ratio Serum or plasma albumin/globulin mass ratio 1.0 0.8 - 2.0 06/24/2017 [facility] Serum or plasma alkaline phosphatase measurement (enzymatic activity/volume) Serum or plasma alkaline phosphatase measurement (enzymatic activity/volume) 93 40 - 150 06/24/2017 [facility] Serum or plasma creatine kinase MB measurement (mass/volume) Serum or plasma creatine kinase MB measurement (mass/volume) 1.40 0.00 - 5.00 06/24/2017 [facility] Serum or plasma creatine kinase measurement (enzymatic activity/volume) Serum or plasma creatine kinase measurement (enzymatic activity/volume) 165 29 - 168 06/24/2017 [facility] Serum or plasma protein measurement (mass/volume) Serum or plasma protein measurement (mass/volume) 7.8 6.5 - 8.1 06/24/2017 [facility] Serum or plasma total bilirubin measurement (mass/volume) Serum or plasma total bilirubin measurement (mass/volume) 0.6 0.2 - 1.2 06/24/2017 [facility] Troponin I measurement by highly sensitive enzyme immunoassay Troponin I measurement by highly sensitive enzyme immunoassay null 0 - 0.300 06/24/2017 [facility] Aspartate Amino Transf (AST/SGOT) 31 5 - 34 06/24/2017 [facility] B-Type Natriuretic Peptide 46.3 0 - 100 06/24/2017 [facility] Hyaline casts detection in urine sediment by light microscopy Hyaline casts detection in urine sediment by light microscopy null 0 - 1 02/17/2017 [facility] Capillary blood glucose measurement by glucometer (mass/volume) Capillary blood glucose measurement by glucometer (mass/volume) 200 70 - 120 02/01/2017 [facility] Barbiturates screen, urine Barbiturates screen, urine NEGATIVE NEGATIVE 12/19/2016 [facility] Serum or plasma acetaminophen measurement by screening method (mass/volume) Serum or plasma acetaminophen measurement by screening method (mass/volume) null 10 - 30 12/19/2016 [facility] Serum or plasma ethanol measurement (mass/volume) Serum or plasma ethanol measurement (mass/volume) null 0.0 - 10.0 12/19/2016 [facility] Serum or plasma salicylates measurement (mass/volume) Serum or plasma salicylates measurement (mass/volume) null 0 - 30 12/19/2016 [facility] Serum or plasma thyrotropin measurement by detection limit <=0.005 miu/l (units/volume) Serum or plasma thyrotropin measurement by detection limit <=0.005 miu/l (units/volume) 2.143 0.350 - 4.940 12/19/2016 [facility] Urine amphetamines detection by screen method > 1000 ng/mL Urine amphetamines detection by screen method > 1000 ng/mL NEGATIVE NEGATIVE 12/19/2016 [facility] Urine benzodiazepines detection by screening method Urine benzodiazepines detection by screening method NEGATIVE NEGATIVE 12/19/2016 [facility] Urine cannabinoids detection by screening method Urine cannabinoids detection by screening method NEGATIVE NEGATIVE 12/19/2016 [facility] Urine opiates screening test Urine opiates screening test POSITIVE NEGATIVE 12/19/2016 [facility] Urine Cocaine Screen NEGATIVE NEGATIVE 12/19/2016 [facility] Vital Signs Vital Sign Value Date Comments Source Height 63 12/14/2014 Yu Lux Diastolic (mm Hg) 66 12/14/2014 Yu Lux Systolic (mm Hg) 114 12/14/2014 [facility] Lux Weight 226.8 12/14/2014 Yu Lux Encounters Location Location Details Encounter Type Encounter Number Reason For Visit Attending Provider ADM Date DC Date Status Source [facility] lab results follow up [id number] 12/14/2014 12/14/2014 [facility] lab results follow up [id number] 12/14/2014 12/14/2014 [facility] lab results follow up [id number] 12/14/2014 12/14/2014 [facility] Rheumatology [facility] Heb B core ab posd - refer hep [id number] 12/16/2014 12/16/2014 [facility] Heb B core ab posd - refer hep [id number] 12/16/2014 12/16/2014 [facility] Unknown [id number] 12/17/2014 12/17/2014 [facility] Unknown [id number] 12/17/2014 12/17/2014 [facility] Unknown [id number] 12/17/2014 12/17/2014 [facility] Rheumatology [facility] pt is needing a steroid rx [id number] 12/18/2014 12/18/2014 [facility]umatology [facility] pt is needing a steroid rx [id number] 12/18/2014 12/18/2014 [facility] pt is needing a steroid rx [id number] 12/18/2014 12/18/2014 [facility] Prednisone refill [id number] 01/23/2015 01/23/[address] [facility] [place] [facility] Departed Emergency Room [id number] QUIANA WHALEY MD 12/09/2016 12/09/2016 [facility] Departed Emergency Room [id number] QUIANA WHALEY MD 12/19/2016 12/19/2016 [facility] Discharged Inpatient [id number] MARILYN OLIVIA MD 01/29/2017 02/01/2017 [facility] Departed Emergency Room [id number] QUIANA WHALEY MD 02/17/2017 02/17/2017 [facility] Departed Emergency Room [id number] KULWINDER KUMAR MD 06/24/2017 06/24/2017 [facility] Departed Emergency Room [id number] TANI LACEY MD 09/23/2017 09/23/2017 [facility] Procedures Procedure Code Date Perfomer Comments Source Computed tomography of brain without radiopaque contrast [id number] 09/23/2017 DEEP[facility] SUPPLEMENT PELVIC SUBCU/FASCIA W SYNTH SUB, OPEN [id number] 01/29/[address] [facility] SUPPLEMENT VAGINA WITH SYNTHETIC SUBSTITUTE, OPEN APPROACH [id number] 01/29/2017 [facility] FLUOROSCOPY KIDNEY, URETER, BLADDER, L W L OSM CONTRAST [id number] 01/29/2017 [facility] FLUOROSCOPY KIDNEY, URETER, BLADDER, R W L OSM CONTRAST [id number] 01/29/2017 [facility] DRAINAGE OF BLADDER WITH DRAINAGE DEVICE, ENDO [id number] 01/29/2017 [facility] STRAPPING OF KNEE [id number] 12/09/2016 [facility]
--- OUTSIDE RECORDS SUMMARY | 2018-08-08 09:35 | XMS REPORT ---
Author Author Yu Lux Organization [employer] Address Unknown Phone Unavailable Care Team Providers Care Decaler Name Role Phone Yu Lux CP Unavailable Encounters Encounter Location Date Heb B core ab posd - refer hep [facility] Dec 16, 2014 lab results follow up [facility] December 14, 2014 Unknown [facility] Dec 17, 2014 pt is needing a steroid rx [facility] Dec 18, 2014 Problems Problem Type Condition ICD-9 Code Onset Dates Condition Status Assessment Hepatitis B carrier V02.61 Active Problem Hypertension 997.91 Active Problem monitorring of highrisk meds V58.69 Active Problem Diabetes mellitus without mention of complication, type II or unspecified type, uncontrolled 250.02 Active Problem Elevated LFTs 794.8 Active Assessment Elevated LFTs 794.8 Active Problem Polymyositis 710.4 Active Problem 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 December 14, 2014 Smoking status: no. Are you a: Never Smoker December 14, 2014 alcohol no. December 14, 2014 Summary Purpose [employer] Submission
--- OUTSIDE RECORDS SUMMARY | 2018-08-08 09:35 | XMS REPORT ---
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 Role Phone Yu Lux CP Unavailable Encounters Encounter Location Date [facility]b B core ab posd - refer hep [facility] Dec 16, 2014 Prednisone refill [facility] Jan 23, 2015 lab results follow up [facility] December 14, 2014 Unknown [facility] Dec 17, 2014 pt is needing a steroid rx [facility] Dec 18, 2014 Problems Problem Type Condition ICD-9 Code Onset Dates Condition Status Problem Hypertension 997.91 Active Problem monitorring of highrisk meds V58.69 Active Problem Diabetes mellitus without mention of complication, type II or unspecified type, uncontrolled 250.02 Active Problem Elevated LFTs 794.8 Active Problem Polymyositis 710.4 Active Problem senior care use of steroids V58.65 Active Medications Medication Code System Code Instructions Start Date End Date Status Dosage PredniSONE MEDISPAN [address]-33 10 MG Orally Once a day December 14, 2014 Mar 24, 2015 Active 1.5 tablet with food or milk Social History Social History Element Qualifiers Date Reported IV Drug abuse no. December 14, 2014 Smoking status: no. Are you a: Never Smoker December 14, 2014 alcohol no. December 14, 2014 Summary Purpose [employer] Submission
--- NOTE | 2018-08-08 11:09 | NUR ---
Walking rounds with Prieto Hill RN. Pt resting supine in bed, respirations even/unlabored, SpO2=99-100%RA. Will continue to monitor.
--- NOTE | 2018-08-08 12:00 | Diagnostic Imaging Report ---
Examination: Single AP view of the chest. COMPARISON: None. INDICATION: Shortness of breath DISCUSSION: Lines/tubes: None. Lungs: The lungs are well inflated and clear. There is no evidence of pneumonia or pulmonary edema. Pleura: There is no pleural effusion or pneumothorax. Heart and mediastinum: The heart and the mediastinum are unremarkable. Bones and soft tissues: No acute bony abnormalities. IMPRESSION: 1. No acute cardiopulmonary abnormalities. Signed by: Dr. Tyler Hubbard M.D. on 08/08/2018 11:57 AM
[2018-08-08 12:58] VITALS: BP 139/80
== END 2018-08-08 13:06 | disposition home or self-care (01) ==
LOC: ER 09:31
DX: R06.00 Dyspnea, unspecified (principal); J00 Acute nasopharyngitis [common cold]; I10 Essential (primary) hypertension; E11.9 Type 2 diabetes mellitus without complications
CPT/HCPCS: 71045; 93005; 99283

== ENCOUNTER 2018-09-04 23:25 | Emergency (ER) | payer OTHER ==
[~2018-09-04] VITALS: Ht 160 cm; Wt 72.6 kg
[2018-09-04] MEDS ORDERED: ONDANSETRON HCL INJ 2MG/ML 2ML 2 MG/ML VIAL IV STA (23:29)
--- OUTSIDE RECORDS SUMMARY | 2018-09-04 23:29 | XMS REPORT | Continuity of Care Document ---
Author Author [facility] Interface Address Unknown Phone Unavailable Problems Problem Status Onset Date Classification Date Reported Comments Source Chest pain Active 11/27/2015 Problem 08/08/2018 [facility] Diabetes Active 11/27/2015 Problem 08/08/2018 [facility] Dehydration Active 03/03/2015 Problem 08/08/2018 [facility] Gastroenteritis Active 03/03/2015 Problem 08/08/2018 [facility] UTI Active 03/03/2015 Problem 08/08/2018 [facility] Ureteral stone Active 02/14/2015 Problem 08/08/2018 [facility] Hypertension Active Problem 01/24/2015 [facility] monitorring of highrisk meds Active Problem 01/24/2015 [facility] Diabetes mellitus without mention of complication, type II or unspecified type, uncontrolled Active Problem 01/24/2015 [facility] Lux Elevated LFTs Active Problem 01/24/2015 [facility] Polymyositis Active Problem 01/24/2015 [facility] 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/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 [facility] Hepatitis B carrier Active Diagnosis 01/15/2015 [facility] Lux osteoporosis screening Active Diagnosis 12/17/2014 [facility] Lux Pain in joint, shoulder region Active Diagnosis 12/17/2014 Yuiona Lux Pain in joint, multiple sites Active Diagnosis 12/17/2014 [facility] Counseling NOS Active Diagnosis 12/17/2014 [facility] Lux Anxiety Active Problem 08/08/2018 [facility] Bronchitis Active Problem 08/08/2018 [facility] Near syncope Active Problem 08/08/2018 [facility] Medications Medication Details Route Status Patient Instructions Ordering Provider Order Date Source Diflunisal (Dolobid) 500 Mg Tablet, 500 Mg Oral Daily Active 12/19/2016 [facility] Ezetimibe/Simvastatin (Vytorin 10-40 Mg Tablet) 1 Each Tablet, 1 Tab Oral Bedtime Active 12/19/2016 [facility] Metformin Hcl 500 Mg Tablet, 500 Mg Oral Twice A Day Active 12/19/2016 [facility] Diflunisal (Dolobid) 500 Mg Tablet, 500 Mg Oral Daily Active 12/19/2016 [facility] Metformin Hcl 500 Mg Tablet, 500 Mg Oral Twice A Day Active 12/19/2016 [facility] Cefuroxime Axetil (Cefuroxime) 250 Mg Tablet, 500 Mg Oral Every 12 Hours Active [facility] 07/18/2016 [facility] Sitagliptin Phos/Metformin Hcl (Janumet Xr 50-1,000 Mg Tablet) 1 Each Tbmp.24hr, Oral Twice A Day Active 02/14/2016 [facility] Sitagliptin Phos/Metformin Hcl (Janumet Xr 50-1,000 Mg Tablet) 1 Each Tbmp.24hr, Oral Twice A Day Active 02/14/2016 [facility] Fenofibrate (Tricor) 145 Mg Tab Daily Active Marilyn 11/30/2015 [facility] Aspirin 325 Mg Tabec, 81 Mg Oral Every Morning Active Marilyn 11/30/2015 [facility] Metoprolol Tartrate 25 Mg Tablet, 12.5 Mg Oral Daily Active Marilyn 11/30/2015 [facility] Fenofibrate (Tricor) 145 Mg Tab Daily Active Marilyn 11/30/2015 [facility] Metoprolol Tartrate 25 Mg Tablet, 12.5 Mg Oral Daily Active Marilyn 11/30/2015 [facility] Acyclovir 200 Mg Capsule, 400 Mg Oral Three Times A Day Active 04/09/2015 [facility] Amlodipine Besylate 10 Mg Tablet, 10 Mg Oral Every Morning Active 04/09/2015 [facility] Ciprofloxacin Hcl (Cipro) 500 Mg Tablet, 500 Mg Oral Every 12 Hours Active 04/09/2015 [facility] Diflunisal (Dolobid) 500 Mg Tablet, 500 Mg Oral Bid' Active 04/09/2015 [facility] Glipizide (Glucotrol Xl*) 5 Mg Tab.er.24, 10 Mg Oral Every Morning Active 04/09/2015 [facility] Oxybutynin Chloride (Ditropan Xl) 10 Mg Tab.er.24, 10 Mg Oral Daily Active 04/09/2015 [facility] Phenazopyridine Hcl (Pyridium) 200 Mg Tablet, 200 Mg Oral Three Times A Day as needed for Bladder Spasms Active 04/09/2015 [facility] Sucralfate 1 Gm Tablet, 1 Gm Oral Before Meals And At Bedtime Active 04/09/2015 [facility] Acyclovir 200 Mg Capsule, 400 Mg Oral Three Times A Day Active 04/09/2015 [facility] Diflunisal (Dolobid) 500 Mg Tablet, 500 Mg Oral Bid' Active 04/09/2015 [facility] Glipizide (Glucotrol Xl*) 5 Mg Tab.er.24, 10 Mg Oral Every Morning Active 04/09/2015 [facility] Oxybutynin Chloride (Ditropan Xl) 10 Mg Tab.er.24, 10 Mg Oral Daily Active 04/09/2015 [facility] Phenazopyridine Hcl (Pyridium) 200 Mg Tablet, 200 Mg Oral Three Times A Day as needed for Bladder Spasms Active 04/09/2015 [facility] Sucralfate 1 Gm Tablet, 1 Gm Oral Before Meals And At Bedtime Active 04/09/2015 [facility] Diflunisal 1 tablet Orally Active 500 MG Orally Twice a day as needed [place] 03/12/2015 [facility] Cephalexin Monohydrate (Keflex) 500 Mg Capsule, 500 Mg Oral Every 6 Hours Active 03/05/2015 [facility] Cephalexin Monohydrate (Keflex) 500 Mg Capsule, 500 Mg Oral Every 6 Hours Active 03/05/2015 [facility] Losartan/Hydrochlorothiazide (Losartan-Hctz 50-12.5 Mg Tab) 1 Each Tablet, Oral Daily Active 02/21/2015 [facility] Prednisone 5 Mg Tablet, 15 Mg Oral Daily Active 02/21/2015 [facility] Sitagliptin Phos/Metformin Hcl (Janumet 50-1,000 Mg Tablet) 1 Each Tablet, 1 Tab Oral Twice A Day Active 02/21/2015 [facility] Losartan/Hydrochlorothiazide (Losartan-Hctz 50-12.5 Mg Tab) 1 Each Tablet, Oral Daily Active 02/21/2015 [facility] Prednisone 5 Mg Tablet, 15 Mg Oral Daily Active 02/21/2015 [facility] Sitagliptin Phos/Metformin Hcl (Janumet 50-1,000 Mg Tablet) 1 Each Tablet, 1 Tab Oral Twice A Day Active 02/21/2015 [facility] Losartan Potassium 25 Mg Tablet, 25 Mg Oral Daily Active 01/30/2015 [facility] Losartan Potassium 25 Mg Tablet, 25 Mg Oral Daily Active 01/30/2015 [facility] PredniSONE 1.5 tablet with food or milk Orally Active 10 MG Orally Once a day [facility] 12/14/2014 [facility] Omeprazole 1 capsule Orally Active 40 MG Orally Once a day [facility] 11/12/2014 [facility] Losartan Potassium 1 tablet Orally Active 25 MG Orally Once a day [facility] Omeprazole 1 capsule Orally Active 40 MG Orally Once a day [facility] Gabapentin 1 capsule Orally Active 100 MG Orally at bedtime [facility] Vytorin 1 tablet Orally Active 10-40 MG Orally at bedtime [facility] [place] Ciprofloxacin 5 ml NA Active 500 mg Twice a day [facility] [place] Janumet 1 tablet with meals Orally Active 50-1000 MG Orally Twice a day [facility] [place] Docusate Sodium (Colace) 100 Mg Cap Twice A Day Active [facility] Gabapentin 100 Mg Capsule Every 12 Hours Active [facility] Levofloxacin (Levaquin) 500 Mg Tablet Daily Active [facility] Losartan/Hydrochlorothiazide (Losartan-Hctz 50-12.5 Mg Tab) 1 Each Tablet Daily Active [facility] Metformin Hcl 500 Mg Tablet Twice A Day Active [facility] Omeprazole 40 Mg Capsule. Daily Active [facility] Tramadol Hcl (Ultram) 50 Mg Tablet Every 4 Hours as needed for Pain Active [facility] Docusate Sodium (Colace) 100 Mg Cap Twice A Day Active [facility] Gabapentin 100 Mg Capsule Every 12 Hours Active [facility] Levofloxacin (Levaquin) 500 Mg Tablet Daily Active [facility] Losartan/Hydrochlorothiazide (Losartan-Hctz 50-12.5 Mg Tab) 1 Each Tablet Daily Active [facility] Metformin Hcl 500 Mg Tablet Twice A Day Active [facility] Omeprazole 40 Mg Capsule. Daily Active [facility] Allergies, Adverse Reactions, Alerts Substance Category Reaction Severity Reaction type Status Date Reported Comments Source Vicodin Adverse Reaction Info Not Available Adverse Reaction Active 12/14/2014 [facility] codiene Adverse Reaction Info Not Available Adverse Reaction Active 12/14/2014 [facility] torodol Adverse Reaction Info Not Available Adverse Reaction Active 12/14/2014 [facility] Hydrocodone itching Unknown Allergy to Substance Active 08/08/2018 [facility] Tramadol itching Unknown Allergy to Substance Active 08/08/2018 [facility] Ketorolac itching Unknown Allergy to Substance Active 08/08/2018 [facility] Immunizations Immunization Date Given Site Status Last Updated Comments Source Results Order Name Results Value Reference Range Date Interpretation Comments Source Automated blood basophil count (count/volume) Automated blood basophil count (count/volume) 0.0 0.0 - 0.1 09/23/2017 [facility] Automated blood basophil count as percentage of total leukocytes Automated blood basophil count as percentage of total leukocytes 0.5 0.0 - 1.0 09/23/2017 [facility] Automated blood eosinophil count Automated blood eosinophil count 0.3 0.0 - 0.4 09/23/2017 [facility] Automated blood eosinophil count as percentage of total leukocytes Automated blood eosinophil count as percentage of total leukocytes 4.4 0.0 - 6.0 09/23/2017 [facility] Automated blood hematocrit (volume fraction) Automated blood hematocrit (volume fraction) 33.5 34.2 - 44.1 09/23/2017 [facility] Automated blood lymphocyte count as percentage ot total leukocytes Automated blood lymphocyte count as percentage ot total leukocytes 33.6 18.0 - 39.1 09/23/2017 [facility] Automated blood monocyte count as percentage of total leukocytes Automated blood monocyte count as percentage of total leukocytes 7.4 4.4 - 11.3 09/23/2017 [facility] Automated blood neutrophil count Automated blood neutrophil count 3.2 2.1 - 6.9 09/23/2017 [facility] Automated blood platelet count (count/volume) Automated blood platelet count (count/volume) 168 140 - 360 09/23/2017 [facility] Automated blood segmented neutrophil count as percentage of total leukocytes Automated blood segmented neutrophil count as percentage of total leukocytes 53.6 38.7 - 80.0 09/23/2017 [facility] Automated erythrocyte mean corpuscular hemoglobin (mass per erythrocyte) Automated erythrocyte mean corpuscular hemoglobin (mass per erythrocyte) 28.2 28 - 32 09/23/2017 [facility] Automated erythrocyte mean corpuscular hemoglobin concentration measurement (mass/volume) Automated erythrocyte mean corpuscular hemoglobin concentration measurement (mass/volume) 33.1 31 - 35 09/23/2017 [facility] Automated erythrocyte mean corpuscular volume Automated erythrocyte mean corpuscular volume 85.0 81 - 99 09/23/2017 [facility] Automated urine sediment leukocyte count by microscopy (number/high power field) Automated urine sediment leukocyte count by microscopy (number/high power field) null 0 - 5 09/23/2017 [facility] Bacteria detection in urine sediment by light microscopy Bacteria detection in urine sediment by light microscopy RARE NONE 09/23/2017 [facility] Blood erythrocytes automated count (number/volume) Blood erythrocytes automated count (number/volume) 3.94 3.6 - 5.1 09/23/2017 [facility] Blood hemoglobin measurement (moles/volume) Blood hemoglobin measurement (moles/volume) 11.1 12.0 - 16.0 09/23/2017 [facility] Blood leukocytes automated count (number/volume) Blood leukocytes automated count (number/volume) 5.92 4.8 - 10.8 09/23/2017 [facility] Blood lymphocytes count (number/volume) Blood lymphocytes count (number/volume) 2.0 1.0 - 3.2 09/23/2017 [facility] Blood monocytes automated count (number/volume) Blood monocytes automated count (number/volume) 0.4 0.2 - 0.8 09/23/2017 [facility] Epithelial cells detection in urine sediment by light microscopy Epithelial cells detection in urine sediment by light microscopy FEW NONE 09/23/2017 [facility] Erythrocytes detection in urine sediment by light microscopy Erythrocytes detection in urine sediment by light microscopy NONE 0 - 5 09/23/2017 [facility] Estimated glomerular filtration rate (GFR) determination Estimated glomerular filtration rate (GFR) determination null 60 09/23/2017 [facility] Glucose measurement Glucose measurement 119 74 - 118 09/23/2017 [facility] Serum or plasma anion gap Serum or plasma anion gap 13.9 8 - 16 09/23/2017 [facility] Serum or plasma calcium measurement (mass/volume) Serum or plasma calcium measurement (mass/volume) 9.3 8.4 - 10.2 09/23/2017 [facility] Serum or plasma carbon dioxide, total measurement (moles/volume) Serum or plasma carbon dioxide, total measurement (moles/volume) 22 22 - 29 09/23/2017 [facility] Serum or plasma chloride measurement (moles/volume) Serum or plasma chloride measurement (moles/volume) 107 98 - 107 09/23/2017 [facility] Serum or plasma creatinine measurement (mass/volume) Serum or plasma creatinine measurement (mass/volume) 0.84 0.57 - 1.11 09/23/2017 [facility] Serum or plasma potassium measurement (moles/volume) Serum or plasma potassium measurement (moles/volume) 3.9 3.5 - 5.1 09/23/2017 [facility] Serum or plasma sodium measurement (moles/volume) Serum or plasma sodium measurement (moles/volume) 139 136 - 145 09/23/2017 [facility] Serum or plasma urea nitrogen measurement (mass/volume) Serum or plasma urea nitrogen measurement (mass/volume) 16 7 - 26 09/23/2017 [facility] Serum or plasma urea nitrogen/creatinine mass ratio Serum or plasma urea nitrogen/creatinine mass ratio 19 6 - 25 09/23/2017 [facility] Specific gravity of Urine by Test strip Specific gravity of Urine by Test strip 1.020 1.010 - 1.025 09/23/2017 [facility] Transitional cells detection in urine sediment by light microscopy Transitional cells detection in urine sediment by light microscopy RARE NONE 09/23/2017 [facility] Urine clarity Urine clarity CLEAR CLEAR 09/23/2017 [facility] Urine color determination Urine color determination YELLOW YELLOW 09/23/2017 [facility] Urine erythrocytes detection Urine erythrocytes detection NEGATIVE NEGATIVE 09/23/2017 [facility] Urine glucose detection Urine glucose detection NEGATIVE NEGATIVE 09/23/2017 [facility] Urine ketones detection by automated test strip Urine ketones detection by automated test strip NEGATIVE NEGATIVE 09/23/2017 [facility] Urine leukocyte esterase detection by dipstick Urine leukocyte esterase detection by dipstick NEGATIVE NEGATIVE 09/23/2017 [facility] Urine nitrite detection Urine nitrite detection NEGATIVE NEGATIVE 09/23/2017 [facility] Urine pH measurement by automated test strip Urine pH measurement by automated test strip 6 5 - 7 09/23/2017 [facility] Urine protein measurement by test strip (mass/volume) Urine protein measurement by test strip (mass/volume) NEGATIVE NEGATIVE 09/23/2017 [facility] Urine total bilirubin measurement (mass/volume) Urine total bilirubin measurement (mass/volume) NEGATIVE NEGATIVE 09/23/2017 [facility] Urine urobilinogen measurement by test strip (mass/volume) Urine urobilinogen measurement by test strip (mass/volume) 0.2 0.2 - 1 09/23/2017 [facility] Red Cell Distribution Width 14.0 11.7 - 14.4 09/23/2017 [facility] IM GRANULOCYTES % 0.5 0.0 - 1.0 09/23/2017 [facility] Absolute Immature Granulocyte (auto 0.03 0 - 0.1 09/23/2017 [facility] Arterial blood base excess by calculation Arterial blood base excess by calculation -2.0 -2 - 3 - 2 06/24/2017 [facility] Arterial blood bicarbonate measurement (moles/volume) Arterial blood bicarbonate measurement (moles/volume) 22 23 - 28 06/24/2017 [facility] Arterial blood oxygen saturation measurement Arterial blood oxygen saturation measurement 95.0 95 - 98 06/24/2017 [facility] Arterial blood pH measurement Arterial blood pH measurement 7.43 7.31 - 7.41 06/24/2017 [facility] Arterial Blood Partial Pressure CO2 34 41 - 51 06/24/2017 [facility] Arterial Blood Partial Pressure O2 74 80 - 105 06/24/2017 [facility] Influenza virus A and B antigen identification by immunofluorescence Influenza virus A and B antigen identification by immunofluorescence NEGATIVE NEGATIVE 06/24/2017 [facility] Plasma globulin measurement (mass/volume) Plasma globulin measurement (mass/volume) 4.0 2.3 - 3.5 06/24/2017 [facility] Serum or plasma alanine aminotransferase measurement (enzymatic activity/volume) Serum or plasma alanine aminotransferase measurement (enzymatic activity/volume) 55 0 - 55 06/24/2017 [facility] Serum or plasma albumin measurement (mass/volume) Serum or plasma albumin measurement (mass/volume) 3.8 3.5 - 5.0 06/24/2017 [facility] Serum or plasma albumin/globulin mass ratio Serum or plasma albumin/globulin mass ratio 1.0 0.8 - 2.0 06/24/2017 [facility] Serum or plasma alkaline phosphatase measurement (enzymatic activity/volume) Serum or plasma alkaline phosphatase measurement (enzymatic activity/volume) 93 40 - 150 06/24/2017 [facility] Serum or plasma creatine kinase MB measurement (mass/volume) Serum or plasma creatine kinase MB measurement (mass/volume) 1.40 0.00 - 5.00 06/24/2017 [facility] Serum or plasma creatine kinase measurement (enzymatic activity/volume) Serum or plasma creatine kinase measurement (enzymatic activity/volume) 165 29 - 168 06/24/2017 [facility] Serum or plasma protein measurement (mass/volume) Serum or plasma protein measurement (mass/volume) 7.8 6.5 - 8.1 06/24/2017 [facility] Serum or plasma total bilirubin measurement (mass/volume) Serum or plasma total bilirubin measurement (mass/volume) 0.6 0.2 - 1.2 06/24/2017 [facility] Troponin I measurement by highly sensitive enzyme immunoassay Troponin I measurement by highly sensitive enzyme immunoassay null 0 - 0.300 06/24/2017 [facility] Aspartate Amino Transf (AST/SGOT) 31 5 - 34 06/24/2017 [facility] B-Type Natriuretic Peptide 46.3 0 - 100 06/24/2017 [facility] Hyaline casts detection in urine sediment by light microscopy Hyaline casts detection in urine sediment by light microscopy null 0 - 1 02/17/2017 [facility] Capillary blood glucose measurement by glucometer (mass/volume) Capillary blood glucose measurement by glucometer (mass/volume) 200 70 - 120 02/01/2017 [facility] Barbiturates screen, urine Barbiturates screen, urine NEGATIVE NEGATIVE 12/19/2016 [facility] Serum or plasma acetaminophen measurement by screening method (mass/volume) Serum or plasma acetaminophen measurement by screening method (mass/volume) null 10 - 30 12/19/2016 [facility] Serum or plasma ethanol measurement (mass/volume) Serum or plasma ethanol measurement (mass/volume) null 0.0 - 10.0 12/19/2016 [facility] Serum or plasma salicylates measurement (mass/volume) Serum or plasma salicylates measurement (mass/volume) null 0 - 30 12/19/2016 [facility] Serum or plasma thyrotropin measurement by detection limit <=0.005 miu/l (units/volume) Serum or plasma thyrotropin measurement by detection limit <=0.005 miu/l (units/volume) 2.143 0.350 - 4.940 12/19/2016 [facility] Urine amphetamines detection by screen method > 1000 ng/mL Urine amphetamines detection by screen method > 1000 ng/mL NEGATIVE NEGATIVE 12/19/2016 [facility] Urine benzodiazepines detection by screening method Urine benzodiazepines detection by screening method NEGATIVE NEGATIVE 12/19/2016 [facility] Urine cannabinoids detection by screening method Urine cannabinoids detection by screening method NEGATIVE NEGATIVE 12/19/2016 [facility] Urine opiates screening test Urine opiates screening test POSITIVE NEGATIVE 12/19/2016 [facility] Urine Cocaine Screen NEGATIVE NEGATIVE 12/19/2016 [facility] Vital Signs Vital Sign Value Date Comments Source Height 63 12/14/2014 [facility] [place] Diastolic (mm Hg) 66 12/14/2014 [facility] Systolic (mm Hg) 114 12/14/2014 [facility] Weight 226.8 12/14/2014 [facility] Encounters Location Location Details Encounter Type Encounter Number Reason For Visit Attending Provider ADM Date DC Date Status Source [facility] lab results follow up [id number] 12/14/2014 12/14/2014 [facility] lab results follow up [id number] 12/14/2014 12/14/2014 [facility] lab results follow up [id number] 12/14/2014 12/14/2014 [facility] Rheumatology [facility] B core ab posd - refer hep [id number] 12/16/2014 12/16/2014 [facility] Rheumatology [facility] B core ab posd - refer hep [id number] 12/16/2014 12/16/2014 [facility] Unknown [id number] 12/17/2014 12/17/2014 [facility] Unknown [id number] 12/17/2014 12/17/2014 [facility] Unknown [id number] 12/17/2014 12/17/2014 [facility] Rheumatology Clinic pt is needing a steroid rx [id number] 12/18/2014 12/18/2014 [facility] Rheumatology [facility] pt is needing a steroid rx [id number] 12/18/2014 12/18/2014 [facility] Clinic pt is needing a steroid rx [id number] 12/18/2014 12/18/2014 [facility] Rheumatology [facility] Prednisone refill [id number] 01/23/2015 01/23/2015 [facility] Departed Emergency Room [id number] QUIANA WHALEY MD 12/09/2016 12/09/2016 [facility] Departed Emergency Room [id number] QUIANA WHALEY MD 12/19/2016 12/19/2016 [facility] Discharged Inpatient [id number] MARILYN OLIVIA MD 01/29/2017 02/01/2017 [facility] Departed Emergency Room [id number] QUIANA WHALEY MD 02/17/2017 02/17/2017 [facility] Departed Emergency Room [id number] KULWINDER KUMAR MD 06/24/2017 06/24/2017 [facility] Departed Emergency Room [id number] TANI LACEY MD 09/23/2017 09/23/2017 [facility] Departed Emergency Room [id number] QUIANA WHALEY MD 08/08/2018 08/08/2018 [facility] Procedures Procedure Code Date Perfomer Comments Source Computed tomography of brain without radiopaque contrast [id number] 09/23/2017 [facility] SUPPLEMENT PELVIC SUBCU/FASCIA W SYNTH SUB, OPEN [id number] 01/29/2017 [facility] SUPPLEMENT VAGINA WITH SYNTHETIC SUBSTITUTE, OPEN APPROACH [id number] 01/29/2017 [facility] FLUOROSCOPY KIDNEY, URETER, BLADDER, L W L OSM CONTRAST [id number] 01/29/2017 [facility] FLUOROSCOPY KIDNEY, URETER, BLADDER, R W L OSM CONTRAST [id number] 01/29/2017 [facility] DRAINAGE OF BLADDER WITH DRAINAGE DEVICE, ENDO [id number] 01/29/2017 [facility] STRAPPING OF KNEE [id number] 12/09/2016 [facility]
[2018-09-04] MEDS ORDERED: SODIUM CHLORIDE 0.9% 1000ML 1,000 ML IV SCH (23:30)
[2018-09-04] MEDS ORDERED: DICYCLOMINE HCL 20 MG/2 ML VIAL IM ONE (23:30)
[2018-09-04 23:45] LABS: BASOPHILS % 0.3 % (0.0-1.0); EOSINOPHILS # (AUTO) 0.2 (0.0-0.4); EOSINOPHILS % 1.7 % (0.0-6.0); HEMATOCRIT 43.1 % (34.2-44.1); HEMOGLOBIN 14.5 g/dL (12.0-16.0); LYMPHOCYTES # (AUTO) 0.6 (1.0-3.2); LYMPHOCYTES % 5.8 % (18.0-39.1); MEAN CORPUSCULAR HEMOGLOBIN 29.4 pg (28-32); MEAN CORPUSCULAR HGB CONC 33.6 g/dL (31-35); MEAN CORPUSCULAR VOLUME 87.2 fL (81-99); MONOCYTES # (AUTO) 0.4 (0.2-0.8); MONOCYTES % 3.7 % (4.4-11.3); NEUTROPHILS # (AUTO) 9.2 (2.1-6.9); NEUTROPHILS % 88.1 % (38.7-80.0); PLATELET COUNT 185 x10e3/uL (140-360); RED BLOOD COUNT 4.94 x10e6/uL (3.6-5.1); RED CELL DISTRIBUTION WIDTH 14.9 % (11.7-14.4)
[2018-09-05 00:09] LABS: CLARITY,URINE CLEAR (CLEAR); COLOR,URINE YELLOW (YELLOW); KETONES,URINE NEGATIVE (NEGATIVE); LEUKOCYTE ESTERASE ,URINE NEGATIVE (NEGATIVE); NITRITE,URINE NEGATIVE (NEGATIVE); PROTEIN,URINE DIPSTICK NEGATIVE (NEGATIVE)
[2018-09-05 00:11] LABS: BACTERIA,URINE FEW /HPF; BILIRUBIN,URINE NEGATIVE (NEGATIVE); EPITHELIAL CELLS,URINE MODERATE /LPF; RBC,URINE 0-5 /HPF (0-5); URINE UROBILINOGEN 0.2 mg/dL (0.2 - 1); WBC,URINE (MAN) 0-5 /HPF (0-5)
[2018-09-05 00:12] LABS: ALANINE AMINOTRANSFERASE 31 IU/L (0-55); ALKALINE PHOSPHATASE 70 IU/L (40-150); ANION GAP 15.8 mmol/L (8-16); BLOOD UREA NITROGEN 25 mg/dL (7-26); BUN/CREATININE RATIO 30 (6-25); CALCIUM 9.3 mg/dL (8.4-10.2); CARBON DIOXIDE 23 mmol/L (22-29); CHLORIDE 103 mmol/L (98-107); CREATINE KINASE 271 IU/L (29-168); CREATININE, SERUM 0.83 mg/dL (0.57-1.11); EST GLOMERULAR FILTRATION RATE > 60 ML/MIN (60-); GLUCOSE 166 mg/dL (74-118); LIPASE 20 U/L (8-78); POTASSIUM 3.8 mmol/L (3.5-5.1); SODIUM 138 mmol/L (136-145)
[2018-09-05 00:19] LABS: AMPHETAMINES SCREEN,URINE NEGATIVE (NEGATIVE); BENZODIAZEPINES SCREEN,URINE NEGATIVE (NEGATIVE); PHENCYCLIDINE SCREEN,URINE NEGATIVE (NEGATIVE)
[2018-09-05] MEDS ORDERED: ZOFRAN4 MG SL (00:51)
== END 2018-09-05 01:30 | disposition home or self-care (01) ==
LOC: ER 23:25
DX: R10.84 Generalized abdominal pain (principal); R11.2 Nausea with vomiting, unspecified
CPT/HCPCS: 36415; 80053; 80307; 81001; 82550; 82553; 83690; 84484; 85025; 96372; 96374; 99283; J0500; J2405; J7030

== ENCOUNTER 2018-11-24 18:42 | Emergency (ER) | payer OTHER ==
[~2018-11-24] VITALS: Ht 160 cm; Wt 72.6 kg
[~2018-11-24 18:42] MED LIST changes: +ZOFRAN4 MG SL
--- OUTSIDE RECORDS SUMMARY | 2018-11-24 18:48 | XMS REPORT | Continuity of Care Document ---
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 Name Role Phone [facility] Information [employer] Unavailable Unavailable Problems Problem Status Onset Date Classification Date Reported Comments Source Chest pain Active 11/27/2015 Problem 09/05/2018 [facility] Diabetes Active 11/27/2015 Problem 09/05/2018 [facility] Dehydration Active 03/03/2015 Problem 09/05/2018 [facility] Gastroenteritis Active 03/03/2015 Problem 09/05/2018 [facility] UTI Active 03/03/2015 Problem 09/05/2018 [facility] Ureteral stone Active 02/14/2015 Problem 09/05/2018 [facility] Hypertension Active Problem 01/24/2015 [facility] Lux monitorring of highrisk meds Active Problem 01/24/2015 [facility] Diabetes mellitus without mention of complication, type II or unspecified type, uncontrolled Active Problem 01/24/2015 Yu Lux Elevated LFTs Active Problem 01/24/2015 Yu [facility] Polymyositis Active Problem 01/24/2015 Yu 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 01/24/2015 Yu Lux osteoporosis screening Active Diagnosis 12/17/2014 Yu Lux Pain in joint, shoulder region Active Diagnosis 12/17/2014 Yu Lux Pain in joint, multiple sites Active Diagnosis 12/17/2014 Yu Lux Hepatitis B carrier Active Diagnosis 01/15/2015 [facility] Counseling NOS Active Diagnosis 12/17/2014 Yu Lux Anxiety Active Problem 09/05/2018 [facility] Bronchitis Active Problem 09/05/2018 [facility] Near syncope Active Problem 09/05/2018 [facility] Medications Medication Details Route Status Patient Instructions Ordering Provider Order Date Source Ondansetron Hcl (Zofran*) 4 Mg Tablet Every 6 Hours as needed for Nausea Active Lucia 09/05/2018 [facility] Diflunisal (Dolobid) 500 Mg Tablet, 500 Mg Oral Daily Active 12/19/2016 [facility] Ezetimibe/Simvastatin (Vytorin 10-40 Mg Tablet) 1 Each Tablet, 1 Tab Oral Bedtime Active 12/19/2016 [facility] Metformin Hcl 500 Mg Tablet, 500 Mg Oral Twice A Day Active 12/19/2016 [facility] Diflunisal (Dolobid) 500 Mg Tablet, 500 Mg Oral Daily Active 12/19/2016 [facility] Metformin Hcl 500 Mg Tablet, 500 Mg Oral Twice A Day Active 12/19/2016 [facility] Cefuroxime Axetil (Cefuroxime) 250 Mg Tablet, 500 Mg Oral Every 12 Hours Active Kill 07/18/2016 [facility] Sitagliptin Phos/Metformin Hcl (Janumet Xr 50-1,000 Mg Tablet) 1 Each Tbmp.24hr, Oral Twice A Day Active 02/14/2016 [facility] Sitagliptin Phos/Metformin Hcl (Janumet Xr 50-1,000 Mg Tablet) 1 Each Tbmp.24hr, Oral Twice A Day Active 02/14/2016 [facility] Fenofibrate (Tricor) 145 Mg Tab Daily Active Marilyn 11/30/2015 [facility] Aspirin 325 Mg Tabec, 81 Mg Oral Every Morning Active Marilyn 11/30/2015 [facility] Metoprolol Tartrate 25 Mg Tablet, 12.5 Mg Oral Daily Active Marilyn 11/30/2015 [facility] Fenofibrate (Tricor) 145 Mg Tab Daily Active Marilyn 11/30/2015 [facility] Metoprolol Tartrate 25 Mg Tablet, 12.5 Mg Oral Daily Active Marilyn 11/30/2015 [facility] Acyclovir 200 Mg Capsule, 400 Mg Oral Three Times A Day Active 04/09/2015 [facility] Amlodipine Besylate 10 Mg Tablet, 10 Mg Oral Every Morning Active 04/09/2015 [facility] Ciprofloxacin Hcl (Cipro) 500 Mg Tablet, 500 Mg Oral Every 12 Hours Active 04/09/2015 [facility] Diflunisal (Dolobid) 500 Mg Tablet, 500 Mg Oral Bid' Active 04/09/2015 [facility] Glipizide (Glucotrol Xl*) 5 Mg Tab.er.24, 10 Mg Oral Every Morning Active 04/09/2015 [facility] Oxybutynin Chloride (Ditropan Xl) 10 Mg Tab.er.24, 10 Mg Oral Daily Active 04/09/2015 [facility] Phenazopyridine Hcl (Pyridium) 200 Mg Tablet, 200 Mg Oral Three Times A Day as needed for Bladder Spasms Active 04/09/2015 [facility] Sucralfate 1 Gm Tablet, 1 Gm Oral Before Meals And At Bedtime Active 04/09/2015 [facility] Acyclovir 200 Mg Capsule, 400 Mg Oral Three Times A Day Active 04/09/2015 [facility] Diflunisal (Dolobid) 500 Mg Tablet, 500 Mg Oral Bid' Active 04/09/2015 [facility] Glipizide (Glucotrol Xl*) 5 Mg Tab.er.24, 10 Mg Oral Every Morning Active 04/09/2015 [facility] Oxybutynin Chloride (Ditropan Xl) 10 Mg Tab.er.24, 10 Mg Oral Daily Active 04/09/2015 [facility] Phenazopyridine Hcl (Pyridium) 200 Mg Tablet, 200 Mg Oral Three Times A Day as needed for Bladder Spasms Active 04/09/2015 [facility] Sucralfate 1 Gm Tablet, 1 Gm Oral Before Meals And At Bedtime Active 04/09/2015 [facility] Diflunisal 1 tablet Orally Active 500 MG Orally Twice a day as needed Woodin 03/12/2015 [facility] Lux Cephalexin Monohydrate (Keflex) 500 Mg Capsule, 500 Mg Oral Every 6 Hours Active 03/05/2015 [facility] Cephalexin Monohydrate (Keflex) 500 Mg Capsule, 500 Mg Oral Every 6 Hours Active 03/05/2015 [facility] Losartan/Hydrochlorothiazide (Losartan-Hctz 50-12.5 Mg Tab) 1 Each Tablet, Oral Daily Active 02/21/2015 [facility] Prednisone 5 Mg Tablet, 15 Mg Oral Daily Active 02/21/2015 [facility] Sitagliptin Phos/Metformin Hcl (Janumet 50-1,000 Mg Tablet) 1 Each Tablet, 1 Tab Oral Twice A Day Active 02/21/2015 [facility] Losartan/Hydrochlorothiazide (Losartan-Hctz 50-12.5 Mg Tab) 1 Each Tablet, Oral Daily Active 02/21/2015 [facility] Prednisone 5 Mg Tablet, 15 Mg Oral Daily Active 02/21/2015 [facility] Sitagliptin Phos/Metformin Hcl (Janumet 50-1,000 Mg Tablet) 1 Each Tablet, 1 Tab Oral Twice A Day Active 02/21/2015 [facility] Losartan Potassium 25 Mg Tablet, 25 Mg Oral Daily Active 01/30/2015 [facility] Losartan Potassium 25 Mg Tablet, 25 Mg Oral Daily Active 01/30/2015 [facility] PredniSONE 1.5 tablet with food or milk Orally Active 10 MG Orally Once a day [facility] 12/14/2014 [facility] Omeprazole 1 capsule Orally Active 40 MG Orally Once a day [facility] 11/12/[address] [facility] Losartan Potassium 1 tablet Orally Active 25 MG Orally Once a day [facility] Omeprazole 1 capsule Orally Active 40 MG Orally Once a day [facility] Gabapentin 1 capsule Orally Active 100 MG Orally at bedtime [facility] Vytorin 1 tablet Orally Active 10-40 MG Orally at bedtime [facility] Ciprofloxacin 5 ml NA Active 500 mg Twice a day [facility] Najam Janumet 1 tablet with meals Orally Active 50-1000 MG Orally Twice a day [facility] Docusate Sodium (Colace) 100 Mg Cap Twice A Day Active [facility] Gabapentin 100 Mg Capsule Every 12 Hours Active [facility] Levofloxacin (Levaquin) 500 Mg Tablet Daily Active [facility] Losartan/Hydrochlorothiazide (Losartan-Hctz 50-12.5 Mg Tab) 1 Each Tablet Daily Active [facility] Metformin Hcl 500 Mg Tablet Twice A Day Active [facility] Omeprazole 40 Mg Capsule. Daily Active [facility] Tramadol Hcl (Ultram) 50 Mg Tablet Every 4 Hours as needed for Pain Active [facility] Docusate Sodium (Colace) 100 Mg Cap Twice A Day Active [facility] Gabapentin 100 Mg Capsule Every 12 Hours Active [facility] Levofloxacin (Levaquin) 500 Mg Tablet Daily Active [facility] Losartan/Hydrochlorothiazide (Losartan-Hctz 50-12.5 Mg Tab) 1 Each Tablet Daily Active [facility] Metformin Hcl 500 Mg Tablet Twice A Day Active [facility] Omeprazole 40 Mg Capsule. Daily Active [facility] Allergies, Adverse Reactions, Alerts Substance Category Reaction Severity Reaction type Status Date Reported Comments Source Vicodin Adverse Reaction Info Not Available Adverse Reaction Active 12/14/2014 Yu Lux codiene Adverse Reaction Info Not Available Adverse Reaction Active 12/14/2014 Yu Lux torodol Adverse Reaction Info Not Available Adverse Reaction Active 12/14/2014 Yu Lux Hydrocodone itching Unknown Allergy to Substance Active 08/08/2018 [facility] Tramadol itching Unknown Allergy to Substance Active 08/08/2018 [facility] Ketorolac itching Unknown Allergy to Substance Active 08/08/2018 [facility] Immunizations No Data Provided for This Section Results Order Name Results Value Reference Range Date Interpretation Comments Source Urine color determination YELLOW YELLOW 09/04/2018 [facility] Urine clarity CLEAR CLEAR 09/04/2018 [facility] Specific gravity of Urine by Test strip 1.030 1.010 - 1.025 09/04/2018 [facility] Urine pH measurement by automated test strip 6 5 - 7 09/04/2018 [facility] Urine leukocyte esterase detection by dipstick NEGATIVE NEGATIVE 09/04/2018 [facility] Urine nitrite detection NEGATIVE NEGATIVE 09/04/2018 [facility] Urine protein measurement by test strip (mass/volume) NEGATIVE NEGATIVE 09/04/2018 [facility] Urine glucose detection NEGATIVE NEGATIVE 09/04/2018 [facility] Urine ketones detection by automated test strip NEGATIVE NEGATIVE 09/04/2018 [facility] Urine opiates screening test NEGATIVE NEGATIVE 09/04/2018 [facility] Barbiturates screen, urine NEGATIVE NEGATIVE 09/04/2018 [facility] Urine phencyclidine detection by screening method NEGATIVE NEGATIVE 09/04/2018 [facility] Urine amphetamines detection by screen method > 1000 ng/mL NEGATIVE NEGATIVE 09/04/2018 [facility] Urine Methamphetamines Screen NEGATIVE NEGATIVE 09/04/2018 [facility] Urine benzodiazepines detection by screening method NEGATIVE NEGATIVE 09/04/2018 [facility] Urine cocaine measurement (mass/volume) NEGATIVE NEGATIVE 09/04/2018 [facility] Urine cannabinoids detection by screening method NEGATIVE NEGATIVE 09/04/2018 [facility] Urine methadone screen NEGATIVE NEGATIVE 09/04/2018 [facility] Urine urobilinogen measurement by test strip (mass/volume) 0.2 0.2 - 1 09/04/2018 [facility] Urine total bilirubin measurement (mass/volume) NEGATIVE NEGATIVE 09/04/2018 [facility] Urine erythrocytes detection NEGATIVE NEGATIVE 09/04/2018 [facility] Automated urine sediment leukocyte count by microscopy (number/high power field) 0-5 0 - 5 09/04/2018 [facility] Erythrocytes detection in urine sediment by light microscopy 0-5 0 - 5 09/04/2018 [facility] Bacteria detection in urine sediment by light microscopy FEW NONE 09/04/2018 [facility] Epithelial cells detection in urine sediment by light microscopy MODERATE NONE 09/04/2018 [facility] Blood leukocytes automated count (number/volume) 10.48 4.8 - 10.8 09/04/2018 [facility] Blood erythrocytes automated count (number/volume) 4.94 3.6 - 5.1 09/04/2018 [facility] Blood hemoglobin measurement (moles/volume) 14.5 12.0 - 16.0 09/04/2018 [facility] Automated blood hematocrit (volume fraction) 43.1 34.2 - 44.1 09/04/2018 [facility] Automated erythrocyte mean corpuscular volume 87.2 81 - 99 09/04/2018 [facility] Automated erythrocyte mean corpuscular hemoglobin (mass per erythrocyte) 29.4 28 - 32 09/04/2018 [facility] Automated erythrocyte mean corpuscular hemoglobin concentration measurement (mass/volume) 33.6 31 - 35 09/04/2018 [facility] RDW BldCo-Rto 14.9 11.7 - 14.4 09/04/2018 [facility] Automated blood platelet count (count/volume) 185 140 - 360 09/04/2018 [facility] Automated blood segmented neutrophil count as percentage of total leukocytes 88.1 38.7 - 80.0 09/04/2018 [facility] Automated blood lymphocyte count as percentage ot total leukocytes 5.8 18.0 - 39.1 09/04/2018 [facility] Automated blood monocyte count as percentage of total leukocytes 3.7 4.4 - 11.3 09/04/2018 [facility] Automated blood eosinophil count as percentage of total leukocytes 1.7 0.0 - 6.0 09/04/2018 [facility] Automated blood basophil count as percentage of total leukocytes 0.3 0.0 - 1.0 09/04/2018 [facility] IM GRANULOCYTES % 0.4 0.0 - 1.0 09/04/2018 [facility] Automated blood neutrophil count 9.2 2.1 - 6.9 09/04/2018 [facility] Blood lymphocytes count (number/volume) 0.6 1.0 - 3.2 09/04/2018 [facility] Blood monocytes automated count (number/volume) 0.4 0.2 - 0.8 09/04/2018 [facility] Automated blood eosinophil count 0.2 0.0 - 0.4 09/04/2018 [facility] Automated blood basophil count (count/volume) 0.0 0.0 - 0.1 09/04/2018 [facility] Absolute Immature Granulocyte (auto 0.04 0 - 0.1 09/04/2018 [facility] Serum or plasma sodium measurement (moles/volume) 138 136 - 145 09/04/2018 [facility] Serum or plasma potassium measurement (moles/volume) 3.8 3.5 - 5.1 09/04/2018 [facility] Serum or plasma chloride measurement (moles/volume) 103 98 - 107 09/04/2018 [facility] Serum or plasma carbon dioxide, total measurement (moles/volume) 23 22 - 29 09/04/2018 [facility] Serum or plasma anion gap 15.8 8 - 16 09/04/2018 [facility] Serum or plasma urea nitrogen measurement (mass/volume) 25 7 - 26 09/04/2018 [facility] Serum or plasma creatinine measurement (mass/volume) 0.83 0.57 - 1.11 09/04/2018 [facility] Serum or plasma urea nitrogen/creatinine mass ratio 30 6 - 25 09/04/2018 [facility] Estimated glomerular filtration rate (GFR) determination > 60 60 09/04/2018 [facility] Glucose measurement 166 74 - 118 09/04/2018 [facility] Serum or plasma calcium measurement (mass/volume) 9.3 8.4 - 10.2 09/04/2018 [facility] Serum or plasma total bilirubin measurement (mass/volume) 0.7 0.2 - 1.2 09/04/2018 [facility] Aspartate Amino Transf (AST/SGOT) 33 5 - 34 09/04/2018 [facility] Serum or plasma alanine aminotransferase measurement (enzymatic activity/volume) 31 0 - 55 09/04/2018 [facility] Serum or plasma protein measurement (mass/volume) 7.9 6.5 - 8.1 09/04/2018 [facility] Serum or plasma albumin measurement (mass/volume) 4.0 3.5 - 5.0 09/04/2018 [facility] Plasma globulin measurement (mass/volume) 3.9 2.3 - 3.5 09/04/2018 [facility] Serum or plasma albumin/globulin mass ratio 1.0 0.8 - 2.0 09/04/2018 [facility] Serum or plasma alkaline phosphatase measurement (enzymatic activity/volume) 70 40 - 150 09/04/2018 [facility] Serum or plasma creatine kinase measurement (enzymatic activity/volume) 271 29 - 168 09/04/2018 [facility] Serum or plasma creatine kinase MB measurement (mass/volume) 5.40 0 - 4.3 09/04/2018 [facility] Serum or plasma troponin i.cardiac measurement (mass/volume) < 0.05 0.0 - 0.40 09/04/2018 [facility] Serum or plasma lipase measurement (enzymatic activity/volume) 20 8 - 78 09/04/2018 [facility] Automated blood basophil count (count/volume) Automated blood basophil count (count/volume) 0.0 0.0 - 0.1 09/23/2017 [facility] Automated blood basophil count as percentage of total leukocytes Automated blood basophil count as percentage of total leukocytes 0.5 0.0 - 1.0 09/23/2017 [facility] Automated blood eosinophil count Automated blood eosinophil count 0.3 0.0 - 0.4 09/23/2017 [facility] Automated blood eosinophil count as percentage of total leukocytes Automated blood eosinophil count as percentage of total leukocytes 4.4 0.0 - 6.0 09/23/2017 [facility] Automated blood hematocrit (volume fraction) Automated blood hematocrit (volume fraction) 33.5 34.2 - 44.1 09/23/2017 [facility] Automated blood lymphocyte count as percentage ot total leukocytes Automated blood lymphocyte count as percentage ot total leukocytes 33.6 18.0 - 39.1 09/23/2017 [facility] Automated blood monocyte count as percentage of total leukocytes Automated blood monocyte count as percentage of total leukocytes 7.4 4.4 - 11.3 09/23/2017 [facility] Automated blood neutrophil count Automated blood neutrophil count 3.2 2.1 - 6.9 09/23/2017 [facility] Automated blood platelet count (count/volume) Automated blood platelet count (count/volume) 168 140 - 360 09/23/2017 [facility] Automated blood segmented neutrophil count as percentage of total leukocytes Automated blood segmented neutrophil count as percentage of total leukocytes 53.6 38.7 - 80.0 09/23/2017 [facility] Automated erythrocyte mean corpuscular hemoglobin (mass per erythrocyte) Automated erythrocyte mean corpuscular hemoglobin (mass per erythrocyte) 28.2 28 - 32 09/23/2017 [facility] Automated erythrocyte mean corpuscular hemoglobin concentration measurement (mass/volume) Automated erythrocyte mean corpuscular hemoglobin concentration measurement (mass/volume) 33.1 31 - 35 09/23/2017 [facility] Automated erythrocyte mean corpuscular volume Automated erythrocyte mean corpuscular volume 85.0 81 - 99 09/23/2017 [facility] Automated urine sediment leukocyte count by microscopy (number/high power field) Automated urine sediment leukocyte count by microscopy (number/high power field) <5 0 - 5 09/23/2017 [facility] Bacteria detection in urine sediment by light microscopy Bacteria detection in urine sediment by light microscopy RARE NONE 09/23/2017 [facility] Blood erythrocytes automated count (number/volume) Blood erythrocytes automated count (number/volume) 3.94 3.6 - 5.1 09/23/2017 [facility] Blood hemoglobin measurement (moles/volume) Blood hemoglobin measurement (moles/volume) 11.1 12.0 - 16.0 09/23/2017 [facility] Blood leukocytes automated count (number/volume) Blood leukocytes automated count (number/volume) 5.92 4.8 - 10.8 09/23/2017 [facility] Blood lymphocytes count (number/volume) Blood lymphocytes count (number/volume) 2.0 1.0 - 3.2 09/23/2017 [facility] Blood monocytes automated count (number/volume) Blood monocytes automated count (number/volume) 0.4 0.2 - 0.8 09/23/2017 [facility] Epithelial cells detection in urine sediment by light microscopy Epithelial cells detection in urine sediment by light microscopy FEW NONE 09/23/2017 [facility] Erythrocytes detection in urine sediment by light microscopy Erythrocytes detection in urine sediment by light microscopy NONE 0 - 5 09/23/2017 [facility] Estimated glomerular filtration rate (GFR) determination Estimated glomerular filtration rate (GFR) determination >60 60 09/23/2017 [facility] Glucose measurement Glucose measurement 119 74 - 118 09/23/2017 [facility] Serum or plasma anion gap Serum or plasma anion gap 13.9 8 - 16 09/23/2017 [facility] Serum or plasma calcium measurement (mass/volume) Serum or plasma calcium measurement (mass/volume) 9.3 8.4 - 10.2 09/23/2017 [facility] Serum or plasma carbon dioxide, total measurement (moles/volume) Serum or plasma carbon dioxide, total measurement (moles/volume) 22 22 - 29 09/23/2017 [facility] Serum or plasma chloride measurement (moles/volume) Serum or plasma chloride measurement (moles/volume) 107 98 - 107 09/23/2017 [facility] Serum or plasma creatinine measurement (mass/volume) Serum or plasma creatinine measurement (mass/volume) 0.84 0.57 - 1.11 09/23/2017 [facility] Serum or plasma potassium measurement (moles/volume) Serum or plasma potassium measurement (moles/volume) 3.9 3.5 - 5.1 09/23/2017 [facility] Serum or plasma sodium measurement (moles/volume) Serum or plasma sodium measurement (moles/volume) 139 136 - 145 09/23/2017 [facility] Serum or plasma urea nitrogen measurement (mass/volume) Serum or plasma urea nitrogen measurement (mass/volume) 16 7 - 26 09/23/2017 [facility] Serum or plasma urea nitrogen/creatinine mass ratio Serum or plasma urea nitrogen/creatinine mass ratio 19 6 - 25 09/23/2017 [facility] Specific gravity of Urine by Test strip Specific gravity of Urine by Test strip 1.020 1.010 - 1.025 09/23/2017 [facility] Transitional cells detection in urine sediment by light microscopy Transitional cells detection in urine sediment by light microscopy RARE NONE 09/23/2017 [facility] Urine clarity Urine clarity CLEAR CLEAR 09/23/2017 [facility] Urine color determination Urine color determination YELLOW YELLOW 09/23/2017 [facility] Urine erythrocytes detection Urine erythrocytes detection NEGATIVE NEGATIVE 09/23/2017 [facility] Urine glucose detection Urine glucose detection NEGATIVE NEGATIVE 09/23/2017 [facility] Urine ketones detection by automated test strip Urine ketones detection by automated test strip NEGATIVE NEGATIVE 09/23/2017 [facility] Urine leukocyte esterase detection by dipstick Urine leukocyte esterase detection by dipstick NEGATIVE NEGATIVE 09/23/2017 [facility] Urine nitrite detection Urine nitrite detection NEGATIVE NEGATIVE 09/23/2017 [facility] Urine pH measurement by automated test strip Urine pH measurement by automated test strip 6 5 - 7 09/23/2017 [facility] Urine protein measurement by test strip (mass/volume) Urine protein measurement by test strip (mass/volume) NEGATIVE NEGATIVE 09/23/2017 [facility] Urine total bilirubin measurement (mass/volume) Urine total bilirubin measurement (mass/volume) NEGATIVE NEGATIVE 09/23/2017 [facility] Urine urobilinogen measurement by test strip (mass/volume) Urine urobilinogen measurement by test strip (mass/volume) 0.2 0.2 - 1 09/23/2017 [facility] Red Cell Distribution Width 14.0 11.7 - 14.4 09/23/2017 [facility] IM GRANULOCYTES % 0.5 0.0 - 1.0 09/23/2017 [facility] Absolute Immature Granulocyte (auto 0.03 0 - 0.1 09/23/2017 [facility] Arterial blood base excess by calculation Arterial blood base excess by calculation -2.0 -2 - 3 - 2 06/24/2017 [facility] Arterial blood bicarbonate measurement (moles/volume) Arterial blood bicarbonate measurement (moles/volume) 22 23 - 28 06/24/2017 [facility] Arterial blood oxygen saturation measurement Arterial blood oxygen saturation measurement 95.0 95 - 98 06/24/2017 [facility] Arterial blood pH measurement Arterial blood pH measurement 7.43 7.31 - 7.41 06/24/2017 [facility] Arterial Blood Partial Pressure CO2 34 41 - 51 06/24/2017 [facility] Arterial Blood Partial Pressure O2 74 80 - 105 06/24/2017 [facility] Influenza virus A and B antigen identification by immunofluorescence Influenza virus A and B antigen identification by immunofluorescence NEGATIVE NEGATIVE 06/24/2017 [facility] Plasma globulin measurement (mass/volume) Plasma globulin measurement (mass/volume) 4.0 2.3 - 3.5 06/24/2017 [facility] Serum or plasma alanine aminotransferase measurement (enzymatic activity/volume) Serum or plasma alanine aminotransferase measurement (enzymatic activity/volume) 55 0 - 55 06/24/2017 [facility] Serum or plasma albumin measurement (mass/volume) Serum or plasma albumin measurement (mass/volume) 3.8 3.5 - 5.0 06/24/2017 [facility] Serum or plasma albumin/globulin mass ratio Serum or plasma albumin/globulin mass ratio 1.0 0.8 - 2.0 06/24/2017 [facility] Serum or plasma alkaline phosphatase measurement (enzymatic activity/volume) Serum or plasma alkaline phosphatase measurement (enzymatic activity/volume) 93 40 - 150 06/24/2017 [facility] Serum or plasma creatine kinase MB measurement (mass/volume) Serum or plasma creatine kinase MB measurement (mass/volume) 1.40 0.00 - 5.00 06/24/2017 [facility] Serum or plasma creatine kinase measurement (enzymatic activity/volume) Serum or plasma creatine kinase measurement (enzymatic activity/volume) 165 29 - 168 06/24/2017 [facility] Serum or plasma protein measurement (mass/volume) Serum or plasma protein measurement (mass/volume) 7.8 6.5 - 8.1 06/24/2017 [facility] Serum or plasma total bilirubin measurement (mass/volume) Serum or plasma total bilirubin measurement (mass/volume) 0.6 0.2 - 1.2 06/24/2017 [facility] Troponin I measurement by highly sensitive enzyme immunoassay Troponin I measurement by highly sensitive enzyme immunoassay <0.001 0 - 0.300 06/24/2017 [facility] Aspartate Amino Transf (AST/SGOT) 31 5 - 34 06/24/2017 [facility] B-Type Natriuretic Peptide 46.3 0 - 100 06/24/2017 [facility] Hyaline casts detection in urine sediment by light microscopy Hyaline casts detection in urine sediment by light microscopy <5 0 - 1 02/17/2017 [facility] Capillary blood glucose measurement by glucometer (mass/volume) Capillary blood glucose measurement by glucometer (mass/volume) 200 70 - 120 02/01/2017 [facility] Barbiturates screen, urine Barbiturates screen, urine NEGATIVE NEGATIVE 12/19/2016 [facility] Serum or plasma acetaminophen measurement by screening method (mass/volume) Serum or plasma acetaminophen measurement by screening method (mass/volume) <3 10 - 30 12/19/2016 [facility] Serum or plasma ethanol measurement (mass/volume) Serum or plasma ethanol measurement (mass/volume) <10.0 0.0 - 10.0 12/19/2016 [facility] Serum or plasma salicylates measurement (mass/volume) Serum or plasma salicylates measurement (mass/volume) <5.0 0 - 30 12/19/2016 [facility] Serum or plasma thyrotropin measurement by detection limit <=0.005 miu/l (units/volume) Serum or plasma thyrotropin measurement by detection limit <=0.005 miu/l (units/volume) 2.143 0.350 - 4.940 12/19/2016 [facility] Urine amphetamines detection by screen method > 1000 ng/mL Urine amphetamines detection by screen method > 1000 ng/mL NEGATIVE NEGATIVE 12/19/2016 [facility] Urine benzodiazepines detection by screening method Urine benzodiazepines detection by screening method NEGATIVE NEGATIVE 12/19/2016 [facility] Urine cannabinoids detection by screening method Urine cannabinoids detection by screening method NEGATIVE NEGATIVE 12/19/2016 [facility] Urine opiates screening test Urine opiates screening test POSITIVE NEGATIVE 12/19/2016 [facility] Urine Cocaine Screen NEGATIVE NEGATIVE 12/19/2016 [facility] Pathology Reports No Data Provided for This Section Diagnostic Reports No Data Provided for This Section Consultation Notes No Data Provided for This Section Discharge Summaries No Data Provided for This Section History and Physicals No Data Provided for This Section Vital Signs Vital Sign Value Date Comments Source Height 63 12/14/2014 [facility] Nashannon Diastolic (mm Hg) 66 12/14/2014 [facility] Nachrism Systolic (mm Hg) 114 12/14/2014 [facility] Lux Weight 226.8 12/14/2014 [facility] Lux Encounters Location Location Details Encounter Type Encounter Number Reason For Visit Attending Provider ADM Date DC Date Status Source [facility]ology Clinic lab results follow up [id number] 12/14/2014 12/14/2014 [facility] Rheumatology Clinic lab results follow up [id number] 12/14/2014 12/14/2014 [facility] Rheumatology Clinic lab results follow up [id number] 12/14/2014 12/14/2014 [facility] Rheumatology [facility] Heb B core ab posd - refer hep [id number] 12/16/2014 12/16/2014 [facility] Rheumatology [facility] Heb B core ab posd - refer hep [id number] 12/16/2014 12/16/2014 [facility] Unknown [id number] 12/17/2014 12/17/2014 [facility] Rhe[facility]ology Clinic Unknown [id number] 12/17/2014 12/17/2014 [facility] Rheumatology [facility] Unknown [id number] 12/17/2014 12/17/2014 [facility] pt is needing a steroid rx [id number] 12/18/2014 12/18/2014 [facility] Rheumatology [facility] pt is needing a steroid rx [id number] 12/18/2014 12/18/2014 [facility] Rheumatology [facility] pt is needing a steroid rx [id number] 12/18/2014 12/18/2014 [facility] Rheumatology [facility] Prednisone refill [id number] 01/23/2015 01/23/2015 [facility] Departed Emergency Room [id number] QUIANA WHALEY MD 12/09/2016 12/09/2016 [facility] Departed Emergency Room [id number] QUIANA WHALEY MD 12/19/2016 12/19/2016 [facility] Discharged Inpatient [id number] MARILYN OLIVIA MD 01/29/2017 02/01/2017 [facility] Departed Emergency Room [id number] QUIANA WHALEY MD 02/17/2017 02/17/2017 [facility] Departed Emergency Room [id number] KULWINDER KUMAR MD 06/24/2017 06/24/2017 [facility] Departed Emergency Room [id number] TANI LACEY MD 09/23/2017 09/23/2017 [facility] Departed Emergency Room [id number] QUIANA WHALEY MD 08/08/2018 08/08/2018 [facility] Departed Emergency Room [id number] KRIS THORNTON MD 09/04/2018 09/05/2018 [facility] Procedures Procedure Code Date Perfomer Comments Source Computed tomography of brain without radiopaque contrast [id number] 09/23/2017 [facility] SUPPLEMENT PELVIC SUBCU/FASCIA W SYNTH SUB, OPEN [id number] 01/29/2017 [facility] SUPPLEMENT VAGINA WITH SYNTHETIC SUBSTITUTE, OPEN APPROACH [id number] 01/29/2017 [facility] FLUOROSCOPY KIDNEY, URETER, BLADDER, L W L OSM CONTRAST [id number] 01/29/2017 [facility] FLUOROSCOPY KIDNEY, URETER, BLADDER, R W L OSM CONTRAST [id number] 01/29/2017 [facility] DRAINAGE OF BLADDER WITH DRAINAGE DEVICE, ENDO [id number] 01/29/2017 [facility] STRAPPING OF KNEE [id number] 12/09/2016 [facility] Assessment and Plan No Data Provided for This Section Plan of Care Plan of Care Date Source Discharge Date 09/05/18 1:30am Disposition HOME, SELF-CARE Condition at Discharge Stable Instructions/Education Provided Abdominal Pain - Adult Forms Provided Work/School Excuse Prescriptions See Medication Section Referrals AKBAR SOLARES MD Address: [address] [place] [address] [address] [place] [address] Additional Instructions/Education 1. Please f/u your GI doctor 09/05/2018 [facility] Discharge Date 08/08/18 1:06pm Disposition HOME, SELF-CARE Condition at Discharge Stable Forms Provided Work/School Excuse Prescriptions See Medication Section Referrals Lashay Simms Additional Instructions/Education Please come back to the ER if your symptoms progress. Please call and schedule an appointment for follow up with your primary care physician. Take this packet with you to your appointment. You can take over the counter medications such as zyrtec or claritin to help with symptom management for nasal drainage. 08/08/2018 [facility] Discharge Date 09/23/17 4:55am Disposition HOME, SELF-CARE Condition at Discharge Stable Instructions/Education Provided Tension Headache Forms Provided Work/School Excuse Prescriptions See Medication Section Additional Instructions/Education FOLLOW UP WITH YOUR PRIMARY CARE DOCTOR CALL FOR APPT TAKE MEDICATION PRESCRIBED 09/23/2017 [facility] Social History Social History Date Source Social History Problem Response Recorded Date/Time Onset [...] Status Start Date Stop Date Never Smoker 09/05/2018 [facility] Social History ElementQualifiersDate Reported IV Drug abuse no. December 14, 2014 Smoking status: no. Are you a: Never Smoker December 14, 2014 alcohol no. December 14, 2014 12/14/2014 Yu Jose J Family History No Data Provided for This Section Advance Directives Order Name Results Value Date Source Advance Directives Advance Directives Directive Response Recorded Date/Time Does the patient have an advance directive? No 01/29/17 11:17am If yes, is advance directive on file with [facility]? No 09/05/18 12:04am If not on file with [facility] will patient provide a copy? No 09/05/18 12:04am Do you have a Directive to Physician? No 09/05/18 12:04am Do you have a Medical Power of Debt Collection Specialist? No 09/05/18 12:04am Do you have an out of hospital Do Not Resuscitate Order? No 09/05/18 12:04am Do you have any special needs we should be aware of? No 09/05/18 12:04am Do you have a support person here with you today? Yes 09/05/18 12:04am Did patient receive Notice of Privacy Practices? Yes 09/05/18 12:04am Did patient receive patient rights and responsibilities? Yes 09/05/18 12:04am 09/05/2018 [facility] Advance Directives Advance Directives Directive Response Recorded Date/Time Does the patient have an advance directive? No 01/29/17 11:17am Do you have a Directive to Physician? No 08/08/18 11:41am Do you have a Medical Power of Debt Collection Specialist? No 08/08/18 11:41am Do you have an out of hospital Do Not Resuscitate Order? No 08/08/18 11:41am Do you have any special needs we should be aware of? No 08/08/18 11:41am Do you have a support person here with you today? Yes 08/08/18 11:41am Did patient receive Notice of Privacy Practices? Yes 08/08/18 11:41am Did patient receive patient rights and responsibilities? Yes 08/08/18 11:41am 08/08/2018 [facility] Advance Directives Advance Directives Directive Response Recorded Date/Time Does the patient have an advance directive? No 01/29/17 11:17am If yes, is advance directive on file with [facility]? No 01/29/17 11:17am If not on file with [facility] will patient provide a copy? No 01/29/17 11:17am Do you have a Directive to Physician? No 09/23/17 3:04am Do you have a Medical Power of Debt Collection Specialist? No 09/23/17 3:04am Do you have an out of hospital Do Not Resuscitate Order? No 09/23/17 3:04am Do you have any special needs we should be aware of? No 09/23/17 3:04am Do you have a support person here with you today? Yes 09/23/17 3:04am Did patient receive Notice of Privacy Practices? Yes 09/23/17 3:04am Did patient receive patient rights and responsibilities? Yes 09/23/17 3:04am 09/23/2017 [facility] Functional Status No Data Provided for This Section
[2018-11-24] MEDS ORDERED: DIPHENHYDRAMINE HCL INJ 50 MG/ML VIAL IV ONE (19:15)
[2018-11-24] MEDS ORDERED: METOCLOPRAMIDE HCL 10 MG/2ML VIAL IV ONE (19:15)
[2018-11-24] MEDS ORDERED: SODIUM CHLORIDE 0.9% 1000ML 1,000 ML IV SCH ×2 (19:15→21:15)
[2018-11-24] MEDS ORDERED: ASPIRIN 81 MG CHEW TAB PO ONE (19:15)
[2018-11-24 20:35] LABS: BASOPHILS % 0.6 % (0.0-1.0); EOSINOPHILS # (AUTO) 0.2 (0.0-0.4); EOSINOPHILS % 3.7 % (0.0-6.0); HEMATOCRIT 35.5 % (34.2-44.1); LYMPHOCYTES % 32.4 % (18.0-39.1); MEAN CORPUSCULAR HGB CONC 33.8 g/dL (31-35); MEAN CORPUSCULAR VOLUME 88.8 fL (81-99); MONOCYTES # (AUTO) 0.4 (0.2-0.8); MONOCYTES % 6.1 % (4.4-11.3); NEUTROPHILS # (AUTO) 3.5 (2.1-6.9); NEUTROPHILS % 56.6 % (38.7-80.0); PLATELET COUNT 221 x10e3/uL (140-360); RED CELL DISTRIBUTION WIDTH 14.1 % (11.7-14.4)
[2018-11-24 20:38] LABS: BILIRUBIN,URINE NEGATIVE (NEGATIVE); CLARITY,URINE CLEAR (CLEAR); COLOR,URINE YELLOW (YELLOW); KETONES,URINE NEGATIVE (NEGATIVE); LEUKOCYTE ESTERASE ,URINE NEGATIVE (NEGATIVE); NITRITE,URINE NEGATIVE (NEGATIVE); PROTEIN,URINE DIPSTICK NEGATIVE (NEGATIVE); URINE UROBILINOGEN 1 mg/dL (0.2 - 1)
[2018-11-24 20:49] LABS: BACTERIA,URINE RARE /HPF
--- NOTE | 2018-11-24 20:49 | Diagnostic Imaging Report ---
Examination: CT head without contrast Clinical Indication: Left side headaches.. Technique: Transaxial noncontrast images from the skull base through the vertex were obtained. Sagittal and coronal reformatted images were done. Dose modulation, iterative reconstruction, and/or weight based adjustment of the mA/kV was utilized to reduce the radiation dose to as low as reasonably achievable. Comparison: Head CT dated 09/23/2017. Findings: Scalp: No abnormalities. Bones: Intact. No fractures. No blastic or lytic lesions. Brain sulci: Appropriate for patient's age. Ventricles: Normal in size and configuration. No hydrocephalus. Extra-axial space: No abnormalities. Parenchyma: No abnormal densities. No masses, hemorrhage, or acute or chronic cortical based vascular insults. Suprasellar region: No abnormalities. Craniocervical junction: The foramen magnum is patent. No Chiari one malformation. Impression: No intracranial abnormality. No change from 09/23/2017 Signed by: Dr. Demi Marshall M.D. on 11/24/2018 8:46 PM
[2018-11-24 20:54] LABS: ALANINE AMINOTRANSFERASE 21 IU/L (0-55); ALBUMIN/GLOBULIN RATIO 1.1 (0.8-2.0); ALKALINE PHOSPHATASE 66 IU/L (40-150); ANION GAP 14.7 mmol/L (8-16); BLOOD UREA NITROGEN 24 mg/dL (7-26); BUN/CREATININE RATIO 25 (6-25); CALCIUM 9.9 mg/dL (8.4-10.2); CARBON DIOXIDE 25 mmol/L (22-29); CHLORIDE 101 mmol/L (98-107); CREATINE KINASE 294 IU/L (29-168); CREATININE, SERUM 0.96 mg/dL (0.57-1.11); EST GLOMERULAR FILTRATION RATE 59 ML/MIN (60-); GLUCOSE 94 mg/dL (74-118); POTASSIUM 3.7 mmol/L (3.5-5.1); SODIUM 137 mmol/L (136-145)
[2018-11-24 23:24] VITALS: BP 133/76
== END 2018-11-24 22:15 | disposition home or self-care (01) ==
LOC: ER 18:42
DX: G43.111 Migraine with aura, intractable, with status migrainosus (principal); G44.211 Episodic tension-type headache, intractable; I10 Essential (primary) hypertension; E11.9 Type 2 diabetes mellitus without complications; F41.9 Anxiety disorder, unspecified; F32.9 Major depressive disorder, single episode, unspecified; K21.9 Gastro-esophageal reflux disease without esophagitis; E78.5 Hyperlipidemia, unspecified; B19.10 Unspecified viral hepatitis B without hepatic coma
CPT/HCPCS: 36415; 70450; 80053; 81001; 82550; 82553; 82948; 83690; 84484; 85025; 96374; 96375; 99284; J1200; J2765; J7030

== ENCOUNTER 2018-11-28 18:50 | Emergency (ER) | payer OTHER ==
[~2018-11-28] VITALS: Ht 160 cm; Wt 72.6 kg
--- OUTSIDE RECORDS SUMMARY | 2018-11-28 18:56 | XMS REPORT | Continuity of Care Document ---
Author Author [place] Address Unknown Phone Unavailable Care Team Providers Care Extermination Inspector Name Role Phone [employer] Unavailable Unavailable Problems Problem Status Onset Date Classification Date Reported Comments Source Chest pain Active 11/27/2015 Problem 09/05/2018 [facility] Diabetes Active 11/27/2015 Problem 09/05/2018 [facility] Dehydration Active 03/03/2015 Problem 09/05/2018 [facility] Gastroenteritis Active 03/03/2015 Problem 09/05/2018 [facility] UTI Active 03/03/2015 Problem 09/05/2018 [facility] Ureteral stone Active 02/14/2015 Problem 09/05/2018 [facility] Hypertension Active Problem 01/24/2015 [facility] monitorring of highrisk meds Active Problem 01/24/2015 [facility] Diabetes mellitus without mention of complication, type II or unspecified type, uncontrolled Active Problem 01/24/2015 [facility] Elevated LFTs Active Problem 01/24/2015 [facility] Polymyositis Active Problem 01/24/2015 [facility] Lux roasterman use of steroids Active Problem 01/24/2015 [facility] osteoporosis screening Active Diagnosis 12/17/2014 [facility] Pain in joint, shoulder region Active Diagnosis 12/17/2014 [facility] Pain in joint, multiple sites Active Diagnosis 12/17/2014 [facility] Hepatitis B carrier Active Diagnosis 01/15/2015 [facility] Counseling NOS Active Diagnosis 12/17/2014 [facility] Anxiety Active Problem 09/05/2018 [facility] Bronchitis Active Problem 09/05/2018 [facility] Near syncope Active Problem 09/05/2018 [facility] Medications Medication Details Route Status Patient Instructions Ordering Provider Order Date Source Ondansetron Hcl (Zofran*) 4 Mg Tablet Every 6 Hours as needed for Nausea Active Lucia 09/05/2018 [facility] Diflunisal (Dolobid) 500 Mg Tablet, 500 Mg Oral Daily Active 12/19/2016 [facility] Ezetimibe/Simvastatin (Vytorin 10-40 Mg Tablet) 1 Each Tablet, 1 Tab Oral Bedtime Active 12/19/2016 [facility] Metformin Hcl 500 Mg Tablet, 500 Mg Oral Twice A Day Active 12/19/2016 [facility] Diflunisal (Dolobid) 500 Mg Tablet, 500 Mg Oral Daily Active 12/19/2016 [facility] Metformin Hcl 500 Mg Tablet, 500 Mg Oral Twice A Day Active 12/19/2016 [facility] Cefuroxime Axetil (Cefuroxime) 250 Mg Tablet, 500 Mg Oral Every 12 Hours Active Kill 07/18/2016 [facility] Sitagliptin Phos/Metformin Hcl (Janumet Xr 50-1,000 Mg Tablet) 1 Each Tbmp.24hr, Oral Twice A Day Active 02/14/2016 [facility] Sitagliptin Phos/Metformin Hcl (Janumet Xr 50-1,000 Mg Tablet) 1 Each Tbmp.24hr, Oral Twice A Day Active 02/14/2016 [facility] Fenofibrate (Tricor) 145 Mg Tab Daily Active Marilyn 11/30/2015 [facility] Aspirin 325 Mg Tabec, 81 Mg Oral Every Morning Active Marilyn 11/30/2015 [facility] Metoprolol Tartrate 25 Mg Tablet, 12.5 Mg Oral Daily Active Marilyn 11/30/2015 [facility] Fenofibrate (Tricor) 145 Mg Tab Daily Active Marilyn 11/30/2015 [facility] Metoprolol Tartrate 25 Mg Tablet, 12.5 Mg Oral Daily Active Marilyn 11/30/2015 [facility] Acyclovir 200 Mg Capsule, 400 Mg Oral Three Times A Day Active 04/09/2015 [facility] Amlodipine Besylate 10 Mg Tablet, 10 Mg Oral Every Morning Active 04/09/2015 [facility] Ciprofloxacin Hcl (Cipro) 500 Mg Tablet, 500 Mg Oral Every 12 Hours Active 04/09/2015 [facility] Diflunisal (Dolobid) 500 Mg Tablet, 500 Mg Oral Bid' Active 04/09/2015 [facility] Glipizide (Glucotrol Xl*) 5 Mg Tab.er.24, 10 Mg Oral Every Morning Active 04/09/2015 [facility] Oxybutynin Chloride (Ditropan Xl) 10 Mg Tab.er.24, 10 Mg Oral Daily Active 04/09/2015 [facility] Phenazopyridine Hcl (Pyridium) 200 Mg Tablet, 200 Mg Oral Three Times A Day as needed for Bladder Spasms Active 04/09/2015 [facility] Sucralfate 1 Gm Tablet, 1 Gm Oral Before Meals And At Bedtime Active 04/09/2015 [facility] Acyclovir 200 Mg Capsule, 400 Mg Oral Three Times A Day Active 04/09/2015 [facility] Diflunisal (Dolobid) 500 Mg Tablet, 500 Mg Oral Bid' Active 04/09/2015 [facility] Glipizide (Glucotrol Xl*) 5 Mg Tab.er.24, 10 Mg Oral Every Morning Active 04/09/2015 [facility] Oxybutynin Chloride (Ditropan Xl) 10 Mg Tab.er.24, 10 Mg Oral Daily Active 04/09/2015 [facility] Phenazopyridine Hcl (Pyridium) 200 Mg Tablet, 200 Mg Oral Three Times A Day as needed for Bladder Spasms Active 04/09/2015 [facility] Sucralfate 1 Gm Tablet, 1 Gm Oral Before Meals And At Bedtime Active 04/09/2015 [facility] Diflunisal 1 tablet Orally Active 500 MG Orally Twice a day as needed Woodin 03/12/2015 [facility] Cephalexin Monohydrate (Keflex) 500 Mg Capsule, 500 Mg Oral Every 6 Hours Active 03/05/2015 [facility] Cephalexin Monohydrate (Keflex) 500 Mg Capsule, 500 Mg Oral Every 6 Hours Active 03/05/2015 [facility] Losartan/Hydrochlorothiazide (Losartan-Hctz 50-12.5 Mg Tab) 1 Each Tablet, Oral Daily Active 02/21/2015 [facility] Prednisone 5 Mg Tablet, 15 Mg Oral Daily Active 02/21/2015 [facility] Sitagliptin Phos/Metformin Hcl (Janumet 50-1,000 Mg Tablet) 1 Each Tablet, 1 Tab Oral Twice A Day Active 02/21/2015 [facility] Losartan/Hydrochlorothiazide (Losartan-Hctz 50-12.5 Mg Tab) 1 Each Tablet, Oral Daily Active 02/21/2015 [facility] Prednisone 5 Mg Tablet, 15 Mg Oral Daily Active 02/21/2015 [facility] Sitagliptin Phos/Metformin Hcl (Janumet 50-1,000 Mg Tablet) 1 Each Tablet, 1 Tab Oral Twice A Day Active 02/21/2015 [facility] Losartan Potassium 25 Mg Tablet, 25 Mg Oral Daily Active 01/30/2015 [facility] Losartan Potassium 25 Mg Tablet, 25 Mg Oral Daily Active 01/30/2015 [facility] PredniSONE 1.5 tablet with food or milk Orally Active 10 MG Orally Once a day [facility] 12/14/2014 [facility] Omeprazole 1 capsule Orally Active 40 MG Orally Once a day [facility] 11[facility]12/2014 [facility] Losartan Potassium 1 tablet Orally Active 25 MG Orally Once a day [facility] Omeprazole 1 capsule Orally Active 40 MG Orally Once a day [facility] Gabapentin 1 capsule Orally Active 100 MG Orally at bedtime [facility] Vytorin 1 tablet Orally Active 10-40 MG Orally at bedtime [facility] Ciprofloxacin 5 ml NA Active [address] [facility] Janumet 1 tablet with meals Orally Active 50-1000 MG Orally Twice a day [facility] Docusate Sodium (Colace) 100 Mg Cap Twice A Day Active [facility] Gabapentin 100 Mg Capsule Every 12 Hours Active [facility] Levofloxacin (Levaquin) 500 Mg Tablet Daily Active [facility] Losartan/Hydrochlorothiazide (Losartan-Hctz 50-12.5 Mg Tab) 1 Each Tablet Daily Active [facility] Metformin Hcl 500 Mg Tablet Twice A Day Active [facility] Omeprazole 40 Mg Capsule. Daily Active [facility] Tramadol Hcl (Ultram) 50 Mg Tablet Every 4 Hours as needed for Pain Active [facility] Docusate Sodium (Colace) 100 Mg Cap Twice A Day Active [facility] Gabapentin 100 Mg Capsule Every 12 Hours Active [facility] Levofloxacin (Levaquin) 500 Mg Tablet Daily Active [facility] Losartan/Hydrochlorothiazide (Losartan-Hctz 50-12.5 Mg Tab) 1 Each Tablet Daily Active [facility] Metformin Hcl 500 Mg Tablet Twice A Day Active [facility] Omeprazole 40 Mg Capsule. Daily Active [facility] Allergies, Adverse Reactions, Alerts Substance Category Reaction Severity Reaction type Status Date Reported Comments Source Vicodin Adverse Reaction Info Not Available Adverse Reaction Active 12/14/2014 [facility] codiene Adverse Reaction Info Not Available Adverse Reaction Active 12/14/2014 [facility] torodol Adverse Reaction Info Not Available Adverse Reaction Active 12/14/2014 Yu Lux Hydrocodone itching Unknown Allergy to Substance Active 08/08/2018 [facility] Tramadol itching Unknown Allergy to Substance Active 08/08/2018 [facility] Ketorolac itching Unknown Allergy to Substance Active 08/08/2018 [facility] Immunizations No Data Provided for This Section Results Order Name Results Value Reference Range Date Interpretation Comments Source Urine color determination YELLOW YELLOW 09/04/2018 [facility] Urine clarity CLEAR CLEAR 09/04/2018 [facility] Specific gravity of Urine by Test strip 1.030 1.010 - 1.025 09/04/2018 [facility] Urine pH measurement by automated test strip 6 5 - 7 09/04/2018 [facility] Urine leukocyte esterase detection by dipstick NEGATIVE NEGATIVE 09/04/2018 [facility] Urine nitrite detection NEGATIVE NEGATIVE 09/04/2018 [facility] Urine protein measurement by test strip (mass/volume) NEGATIVE NEGATIVE 09/04/2018 [facility] Urine glucose detection NEGATIVE NEGATIVE 09/04/2018 [facility] Urine ketones detection by automated test strip NEGATIVE NEGATIVE 09/04/2018 [facility] Urine opiates screening test NEGATIVE NEGATIVE 09/04/2018 [facility] Barbiturates screen, urine NEGATIVE NEGATIVE 09/04/2018 [facility] Urine phencyclidine detection by screening method NEGATIVE NEGATIVE 09/04/2018 [facility] Urine amphetamines detection by screen method > 1000 ng/mL NEGATIVE NEGATIVE 09/04/2018 [facility] Urine Methamphetamines Screen NEGATIVE NEGATIVE 09/04/2018 [facility] Urine benzodiazepines detection by screening method NEGATIVE NEGATIVE 09/04/2018 [facility] Urine cocaine measurement (mass/volume) NEGATIVE NEGATIVE 09/04/2018 [facility] Urine cannabinoids detection by screening method NEGATIVE NEGATIVE 09/04/2018 [facility] Urine methadone screen NEGATIVE NEGATIVE 09/04/2018 [facility] Urine urobilinogen measurement by test strip (mass/volume) 0.2 0.2 - 1 09/04/2018 [facility] Urine total bilirubin measurement (mass/volume) NEGATIVE NEGATIVE 09/04/2018 [facility] Urine erythrocytes detection NEGATIVE NEGATIVE 09/04/2018 [facility] Automated urine sediment leukocyte count by microscopy (number/high power field) 0-5 0 - 5 09/04/2018 [facility] Erythrocytes detection in urine sediment by light microscopy 0-5 0 - 5 09/04/2018 [facility] Bacteria detection in urine sediment by light microscopy FEW NONE 09/04/2018 [facility] Epithelial cells detection in urine sediment by light microscopy MODERATE NONE 09/04/2018 [facility] Blood leukocytes automated count (number/volume) 10.48 4.8 - 10.8 09/04/2018 [facility] Blood erythrocytes automated count (number/volume) 4.94 3.6 - 5.1 09/04/2018 [facility] Blood hemoglobin measurement (moles/volume) 14.5 12.0 - 16.0 09/04/2018 [facility] Automated blood hematocrit (volume fraction) 43.1 34.2 - 44.1 09/04/2018 [facility] Automated erythrocyte mean corpuscular volume 87.2 81 - 99 09/04/2018 [facility] Automated erythrocyte mean corpuscular hemoglobin (mass per erythrocyte) 29.4 28 - 32 09/04/2018 [facility] Automated erythrocyte mean corpuscular hemoglobin concentration measurement (mass/volume) 33.6 31 - 35 09/04/2018 [facility] RDW BldCo-Rto 14.9 11.7 - 14.4 09/04/2018 [facility] Automated blood platelet count (count/volume) 185 140 - 360 09/04/2018 [facility] Automated blood segmented neutrophil count as percentage of total leukocytes 88.1 38.7 - 80.0 09/04/2018 [facility] Automated blood lymphocyte count as percentage ot total leukocytes 5.8 18.0 - 39.1 09/04/2018 [facility] Automated blood monocyte count as percentage of total leukocytes 3.7 4.4 - 11.3 09/04/2018 [facility] Automated blood eosinophil count as percentage of total leukocytes 1.7 0.0 - 6.0 09/04/2018 [facility] Automated blood basophil count as percentage of total leukocytes 0.3 0.0 - 1.0 09/04/2018 [facility] IM GRANULOCYTES % 0.4 0.0 - 1.0 09/04/2018 [facility] Automated blood neutrophil count 9.2 2.1 - 6.9 09/04/2018 [facility] Blood lymphocytes count (number/volume) 0.6 1.0 - 3.2 09/04/2018 [facility] Blood monocytes automated count (number/volume) 0.4 0.2 - 0.8 09/04/2018 [facility] Automated blood eosinophil count 0.2 0.0 - 0.4 09/04/2018 [facility] Automated blood basophil count (count/volume) 0.0 0.0 - 0.1 09/04/2018 [facility] Absolute Immature Granulocyte (auto 0.04 0 - 0.1 09/04/2018 [facility] Serum or plasma sodium measurement (moles/volume) 138 136 - 145 09/04/2018 [facility] Serum or plasma potassium measurement (moles/volume) 3.8 3.5 - 5.1 09/04/2018 [facility] Serum or plasma chloride measurement (moles/volume) 103 98 - 107 09/04/2018 [facility] Serum or plasma carbon dioxide, total measurement (moles/volume) 23 22 - 29 09/04/2018 [facility] Serum or plasma anion gap 15.8 8 - 16 09/04/2018 [facility] Serum or plasma urea nitrogen measurement (mass/volume) 25 7 - 26 09/04/2018 [facility] Serum or plasma creatinine measurement (mass/volume) 0.83 0.57 - 1.11 09/04/2018 [facility] Serum or plasma urea nitrogen/creatinine mass ratio 30 6 - 25 09/04/2018 [facility] Estimated glomerular filtration rate (GFR) determination > 60 60 09/04/2018 [facility] Glucose measurement 166 74 - 118 09/04/2018 [facility] Serum or plasma calcium measurement (mass/volume) 9.3 8.4 - 10.2 09/04/2018 [facility] Serum or plasma total bilirubin measurement (mass/volume) 0.7 0.2 - 1.2 09/04/2018 [facility] Aspartate Amino Transf (AST/SGOT) 33 5 - 34 09/04/2018 [facility] Serum or plasma alanine aminotransferase measurement (enzymatic activity/volume) 31 0 - 55 09/04/2018 [facility] Serum or plasma protein measurement (mass/volume) 7.9 6.5 - 8.1 09/04/2018 [facility] Serum or plasma albumin measurement (mass/volume) 4.0 3.5 - 5.0 09/04/2018 [facility] Plasma globulin measurement (mass/volume) 3.9 2.3 - 3.5 09/04/2018 [facility] Serum or plasma albumin/globulin mass ratio 1.0 0.8 - 2.0 09/04/2018 [facility] Serum or plasma alkaline phosphatase measurement (enzymatic activity/volume) 70 40 - 150 09/04/2018 [facility] Serum or plasma creatine kinase measurement (enzymatic activity/volume) 271 29 - 168 09/04/2018 [facility] Serum or plasma creatine kinase MB measurement (mass/volume) 5.40 0 - 4.3 09/04/2018 [facility] Serum or plasma troponin i.cardiac measurement (mass/volume) < 0.05 0.0 - 0.40 09/04/2018 [facility] Serum or plasma lipase measurement (enzymatic activity/volume) 20 8 - 78 09/04/2018 [facility] Automated blood basophil count (count/volume) Automated blood basophil count (count/volume) 0.0 0.0 - 0.1 09/23/2017 [facility] Automated blood basophil count as percentage of total leukocytes Automated blood basophil count as percentage of total leukocytes 0.5 0.0 - 1.0 09/23/2017 [facility] Automated blood eosinophil count Automated blood eosinophil count 0.3 0.0 - 0.4 09/23/2017 [facility] Automated blood eosinophil count as percentage of total leukocytes Automated blood eosinophil count as percentage of total leukocytes 4.4 0.0 - 6.0 09/23/2017 [facility] Automated blood hematocrit (volume fraction) Automated blood hematocrit (volume fraction) 33.5 34.2 - 44.1 09/23/2017 [facility] Automated blood lymphocyte count as percentage ot total leukocytes Automated blood lymphocyte count as percentage ot total leukocytes 33.6 18.0 - 39.1 09/23/2017 [facility] Automated blood monocyte count as percentage of total leukocytes Automated blood monocyte count as percentage of total leukocytes 7.4 4.4 - 11.3 09/23/2017 [facility] Automated blood neutrophil count Automated blood neutrophil count 3.2 2.1 - 6.9 09/23/2017 [facility] Automated blood platelet count (count/volume) Automated blood platelet count (count/volume) 168 140 - 360 09/23/2017 [facility] Automated blood segmented neutrophil count as percentage of total leukocytes Automated blood segmented neutrophil count as percentage of total leukocytes 53.6 38.7 - 80.0 09/23/2017 [facility] Automated erythrocyte mean corpuscular hemoglobin (mass per erythrocyte) Automated erythrocyte mean corpuscular hemoglobin (mass per erythrocyte) 28.2 28 - 32 09/23/2017 [facility] Automated erythrocyte mean corpuscular hemoglobin concentration measurement (mass/volume) Automated erythrocyte mean corpuscular hemoglobin concentration measurement (mass/volume) 33.1 31 - 35 09/23/2017 [facility] Automated erythrocyte mean corpuscular volume Automated erythrocyte mean corpuscular volume 85.0 81 - 99 09/23/2017 [facility] Automated urine sediment leukocyte count by microscopy (number/high power field) Automated urine sediment leukocyte count by microscopy (number/high power field) <5 0 - 5 09/23/2017 [facility] Bacteria detection in urine sediment by light microscopy Bacteria detection in urine sediment by light microscopy RARE NONE 09/23/2017 [facility] Blood erythrocytes automated count (number/volume) Blood erythrocytes automated count (number/volume) 3.94 3.6 - 5.1 09/23/2017 [facility] Blood hemoglobin measurement (moles/volume) Blood hemoglobin measurement (moles/volume) 11.1 12.0 - 16.0 09/23/2017 [facility] Blood leukocytes automated count (number/volume) Blood leukocytes automated count (number/volume) 5.92 4.8 - 10.8 09/23/2017 [facility] Blood lymphocytes count (number/volume) Blood lymphocytes count (number/volume) 2.0 1.0 - 3.2 09/23/2017 [facility] Blood monocytes automated count (number/volume) Blood monocytes automated count (number/volume) 0.4 0.2 - 0.8 09/23/2017 [facility] Epithelial cells detection in urine sediment by light microscopy Epithelial cells detection in urine sediment by light microscopy FEW NONE 09/23/2017 [facility] Erythrocytes detection in urine sediment by light microscopy Erythrocytes detection in urine sediment by light microscopy NONE 0 - 5 09/23/2017 [facility] Estimated glomerular filtration rate (GFR) determination Estimated glomerular filtration rate (GFR) determination >60 60 09/23/2017 [facility] Glucose measurement Glucose measurement 119 74 - 118 09/23/2017 [facility] Serum or plasma anion gap Serum or plasma anion gap 13.9 8 - 16 09/23/2017 [facility] [facility] Serum or plasma calcium measurement (mass/volume) Serum or plasma calcium measurement (mass/volume) 9.3 8.4 - 10.2 09/23/2017 [facility] Serum or plasma carbon dioxide, total measurement (moles/volume) Serum or plasma carbon dioxide, total measurement (moles/volume) 22 22 - 29 09/23/2017 [facility] Serum or plasma chloride measurement (moles/volume) Serum or plasma chloride measurement (moles/volume) 107 98 - 107 09/23/2017 [facility] Serum or plasma creatinine measurement (mass/volume) Serum or plasma creatinine measurement (mass/volume) 0.84 0.57 - 1.11 09/23/2017 [facility] Serum or plasma potassium measurement (moles/volume) Serum or plasma potassium measurement (moles/volume) 3.9 3.5 - 5.1 09/23/2017 [facility] Serum or plasma sodium measurement (moles/volume) Serum or plasma sodium measurement (moles/volume) 139 136 - 145 09/23/2017 [facility] Serum or plasma urea nitrogen measurement (mass/volume) Serum or plasma urea nitrogen measurement (mass/volume) 16 7 - 26 09/23/2017 [facility] Serum or plasma urea nitrogen/creatinine mass ratio Serum or plasma urea nitrogen/creatinine mass ratio 19 6 - 25 09/23/2017 [facility] Specific gravity of Urine by Test strip Specific gravity of Urine by Test strip 1.020 1.010 - 1.025 09/23/2017 [facility] Transitional cells detection in urine sediment by light microscopy Transitional cells detection in urine sediment by light microscopy RARE NONE 09/23/2017 [facility] Urine clarity Urine clarity CLEAR CLEAR 09/23/2017 [facility] Urine color determination Urine color determination YELLOW YELLOW 09/23/2017 [facility] Urine erythrocytes detection Urine erythrocytes detection NEGATIVE NEGATIVE 09/23/2017 [facility] Urine glucose detection Urine glucose detection NEGATIVE NEGATIVE 09/23/2017 [facility] Urine ketones detection by automated test strip Urine ketones detection by automated test strip NEGATIVE NEGATIVE 09/23/2017 [facility] Urine leukocyte esterase detection by dipstick Urine leukocyte esterase detection by dipstick NEGATIVE NEGATIVE 09/23/2017 [facility] Urine nitrite detection Urine nitrite detection NEGATIVE NEGATIVE 09/23/2017 [facility] Urine pH measurement by automated test strip Urine pH measurement by automated test strip 6 5 - 7 09/23/2017 [facility] Urine protein measurement by test strip (mass/volume) Urine protein measurement by test strip (mass/volume) NEGATIVE NEGATIVE 09/23/2017 [facility] Urine total bilirubin measurement (mass/volume) Urine total bilirubin measurement (mass/volume) NEGATIVE NEGATIVE 09/23/2017 [facility] Urine urobilinogen measurement by test strip (mass/volume) Urine urobilinogen measurement by test strip (mass/volume) 0.2 0.2 - 1 09/23/2017 [facility] Red Cell Distribution Width 14.0 11.7 - 14.4 09/23/2017 [facility] IM GRANULOCYTES % 0.5 0.0 - 1.0 09/23/2017 [facility] Absolute Immature Granulocyte (auto 0.03 0 - 0.1 09/23/2017 [facility] Arterial blood base excess by calculation Arterial blood base excess by calculation -2.0 -2 - 3 - 2 06/24/2017 [facility] Arterial blood bicarbonate measurement (moles/volume) Arterial blood bicarbonate measurement (moles/volume) 22 23 - 28 06/24/2017 [facility] Arterial blood oxygen saturation measurement Arterial blood oxygen saturation measurement 95.0 95 - 98 06/24/2017 [facility] Arterial blood pH measurement Arterial blood pH measurement 7.43 7.31 - 7.41 06/24/2017 [facility] Arterial Blood Partial Pressure CO2 34 41 - 51 06/24/2017 [facility] Arterial Blood Partial Pressure O2 74 80 - 105 06/24/2017 [facility] Influenza virus A and B antigen identification by immunofluorescence Influenza virus A and B antigen identification by immunofluorescence NEGATIVE NEGATIVE 06/24/2017 [facility] Plasma globulin measurement (mass/volume) Plasma globulin measurement (mass/volume) 4.0 2.3 - 3.5 06/24/2017 [facility] Serum or plasma alanine aminotransferase measurement (enzymatic activity/volume) Serum or plasma alanine aminotransferase measurement (enzymatic activity/volume) 55 0 - 55 06/24/2017 [facility] Serum or plasma albumin measurement (mass/volume) Serum or plasma albumin measurement (mass/volume) 3.8 3.5 - 5.0 06/24/2017 [facility] Serum or plasma albumin/globulin mass ratio Serum or plasma albumin/globulin mass ratio 1.0 0.8 - 2.0 06/24/2017 [facility] Serum or plasma alkaline phosphatase measurement (enzymatic activity/volume) Serum or plasma alkaline phosphatase measurement (enzymatic activity/volume) 93 40 - 150 06/24/2017 [facility] Serum or plasma creatine kinase MB measurement (mass/volume) Serum or plasma creatine kinase MB measurement (mass/volume) 1.40 0.00 - 5.00 06/24/2017 [facility] Serum or plasma creatine kinase measurement (enzymatic activity/volume) Serum or plasma creatine kinase measurement (enzymatic activity/volume) 165 29 - 168 06/24/2017 [facility] Serum or plasma protein measurement (mass/volume) Serum or plasma protein measurement (mass/volume) 7.8 6.5 - 8.1 06/24/2017 [facility] Serum or plasma total bilirubin measurement (mass/volume) Serum or plasma total bilirubin measurement (mass/volume) 0.6 0.2 - 1.2 06/24/2017 [facility] Troponin I measurement by highly sensitive enzyme immunoassay Troponin I measurement by highly sensitive enzyme immunoassay <0.001 0 - 0.300 06/24/2017 [facility] Aspartate Amino Transf (AST/SGOT) 31 5 - 34 06/24/2017 [facility] B-Type Natriuretic Peptide 46.3 0 - 100 06/24/2017 [facility] Hyaline casts detection in urine sediment by light microscopy Hyaline casts detection in urine sediment by light microscopy <5 0 - 1 02/17/2017 [facility] Capillary blood glucose measurement by glucometer (mass/volume) Capillary blood glucose measurement by glucometer (mass/volume) 200 70 - 120 02/01/2017 [facility] Barbiturates screen, urine Barbiturates screen, urine NEGATIVE NEGATIVE 12/19/2016 [facility] Serum or plasma acetaminophen measurement by screening method (mass/volume) Serum or plasma acetaminophen measurement by screening method (mass/volume) <3 10 - 30 12/19/2016 [facility] Serum or plasma ethanol measurement (mass/volume) Serum or plasma ethanol measurement (mass/volume) <10.0 0.0 - 10.0 12/19/2016 [facility] Serum or plasma salicylates measurement (mass/volume) Serum or plasma salicylates measurement (mass/volume) <5.0 0 - 30 12/19/2016 [facility] Serum or plasma thyrotropin measurement by detection limit <=0.005 miu/l (units/volume) Serum or plasma thyrotropin measurement by detection limit <=0.005 miu/l (units/volume) 2.143 0.350 - 4.940 12/19/2016 [facility] Urine amphetamines detection by screen method > 1000 ng/mL Urine amphetamines detection by screen method > 1000 ng/mL NEGATIVE NEGATIVE 12/19/2016 [facility] Urine benzodiazepines detection by screening method Urine benzodiazepines detection by screening method NEGATIVE NEGATIVE 12/19/2016 [facility] Urine cannabinoids detection by screening method Urine cannabinoids detection by screening method NEGATIVE NEGATIVE 12/19/2016 [facility] Urine opiates screening test Urine opiates screening test POSITIVE NEGATIVE 12/19/2016 [facility] Urine Cocaine Screen NEGATIVE NEGATIVE 12/19/2016 [facility] Pathology Reports No Data Provided for This [...] Source [facility] lab results follow up [id number] 12/14/2014 12/14/2014 [facility] Rhe[facility]ology Clinic lab results follow up [id number] 12/14/2014 12/14/2014 [facility] Rhe[facility]ology Clinic lab results follow up [id number] 12/14/2014 12/14/2014 [facility] Rheumatology [facility] Heb B core ab posd - refer hep [id number] 12/16/2014 12/16/2014 [facility] Rheumatology [facility] Heb B core ab posd - refer hep [id number] 12/16/2014 12/16/2014 [facility] Unknown [id number] 12/17/2014 12/17/2014 [facility] Unknown [id number] 12/17/2014 12/17/2014 [facility] Rheumatology [facility] Unknown [id number] 12/17/2014 12/17/2014 [facility] pt is needing a steroid rx [id number] 12/18/2014 12/18/2014 [facility] Rheumatology [facility] pt is needing a steroid rx [id number] 12/18/2014 12/18/2014 [facility] Rheumatology [facility] pt is needing a steroid rx [id number] 12/18/2014 12/18/2014 [facility] Rheumatology [facility] Prednisone refill [id number] 01/23/2015 01/23/2015 [facility] Departed Emergency Room [id number] QUIANA WHALEY MD 12/09/2016 12/09/2016 [facility] Departed Emergency Room [id number] QUIANA WHALEY MD 12/19/2016 12/19/2016 [facility] Discharged Inpatient [id number] MARILYN OLIVIA MD 01/29/2017 02/01/2017 [facility] Departed Emergency Room [id number] QUIANA WHALEY MD 02/17/2017 02/17/2017 [facility] Departed Emergency Room [id number] KULWINDER KUMAR MD 06/24/2017 06/24/2017 [facility] Departed Emergency Room [id number] TANI LACEY MD 09/23/2017 09/23/2017 [facility] Departed Emergency Room [id number] QUIANA WHALEY MD 08/08/2018 08/08/2018 [facility] Departed Emergency Room [id number] KRIS THORNTON MD 09/04/2018 09/05/2018 [facility] Procedures Procedure Code Date Perfomer Comments Source Computed tomography of brain without radiopaque contrast [id number] 09/23/2017 [facility] SUPPLEMENT PELVIC SUBCU/FASCIA W SYNTH SUB, OPEN [id number] 01/29/2017 [facility] SUPPLEMENT VAGINA WITH SYNTHETIC SUBSTITUTE, OPEN APPROACH [id number] 01/29/2017 [facility] FLUOROSCOPY KIDNEY, URETER, BLADDER, L W L OSM CONTRAST [id number] 01/29/2017 [facility] FLUOROSCOPY KIDNEY, URETER, BLADDER, R W L OSM CONTRAST [id number] 01/29/2017 [facility] DRAINAGE OF BLADDER WITH DRAINAGE DEVICE, ENDO [id number] 01/29/2017 [facility] STRAPPING OF KNEE [id number] 12/09/2016 [facility] Assessment and Plan No Data Provided for This Section Plan of Care Plan of Care Date Source Discharge Date 09/05/18 1:30am Disposition HOME, SELF-CARE Condition at Discharge Stable Instructions/Education Provided Abdominal Pain - Adult Forms Provided Work/School Excuse Prescriptions See Medication Section Referrals AKBAR SOLARES MD Address: [address] [place] [address] [address] [place] [address] Additional Instructions/Education 1. Please f/u your GI doctor 09/05/2018 [facility] Discharge Date 08/08/18 1:06pm Disposition HOME, SELF-CARE [...] with symptom management for nasal drainage. 08/08/2018 [facility] Discharge Date 09/23/17 4:55am Disposition HOME, SELF-CARE Condition at Discharge Stable Instructions/Education Provided Tension Headache Forms Provided Work/School Excuse Prescriptions See Medication Section Additional Instructions/Education FOLLOW UP WITH YOUR PRIMARY CARE DOCTOR CALL FOR APPT TAKE MEDICATION PRESCRIBED 09/23/2017 [facility] Social History Social History Date Source Social [...] Start Date Stop Date Never Smoker 09/05/2018 [facility] Social History ElementQualifiersDate Reported IV Drug abuse [...] yes, is advance directive on file with [facility]? No 09/05/18 12:04am If not on file with [facility] will patient provide a copy? No 09/05/18 12:04am Do you have a Directive to Physician? No 09/05/18 12:04am Do you have a Medical Power of Surgical Nurse? No 09/05/18 12:04am Do you have an [...] rights and responsibilities? Yes 09/05/18 12:04am 09/05/2018 [facility] Advance Directives Advance Directives Directive Response Recorded Date/Time Does the patient have an advance directive? No 01/29/17 11:17am Do you have a Directive to Physician? No 08/08/18 11:41am Do you have a Medical Power of Surgical Nurse? No 08/08/18 11:41am Do you have an [...] rights and responsibilities? Yes 08/08/18 11:41am 08/08/2018 [facility] Advance Directives Advance Directives Directive Response Recorded Date/Time Does the patient have an advance directive? No 01/29/17 11:17am If yes, is advance directive on file with [facility]? No 01/29/17 11:17am If not on file with [facility] will patient provide a copy? No 01/29/17 11:17am Do you have a Directive to Physician? No 09/23/17 3:04am Do you have a Medical Power of Surgical Nurse? No 09/23/17 3:04am Do you have an [...] rights and responsibilities? Yes 09/23/17 3:04am 09/23/2017 [facility] Functional Status No Data Provided for This Section
[2018-11-28] MEDS ORDERED: NITROFURANTOIN MACROCRYSTALS 100 MG CAP PO ONE (21:45)
[2018-11-28 22:41] LABS: BASOPHILS % 0.5 % (0.0-1.0); EOSINOPHILS # (AUTO) 0.3 (0.0-0.4); EOSINOPHILS % 4.3 % (0.0-6.0); HEMATOCRIT 35.7 % (34.2-44.1); HEMOGLOBIN 11.7 g/dL (12.0-16.0); LYMPHOCYTES % 32.2 % (18.0-39.1); MEAN CORPUSCULAR HEMOGLOBIN 29.5 pg (28-32); MEAN CORPUSCULAR HGB CONC 32.8 g/dL (31-35); MEAN CORPUSCULAR VOLUME 90.2 fL (81-99); MONOCYTES # (AUTO) 0.4 (0.2-0.8); MONOCYTES % 7.3 % (4.4-11.3); NEUTROPHILS # (AUTO) 3.4 (2.1-6.9); NEUTROPHILS % 55.2 % (38.7-80.0); PLATELET COUNT 199 x10e3/uL (140-360); RED BLOOD COUNT 3.96 x10e6/uL (3.6-5.1); RED CELL DISTRIBUTION WIDTH 14.2 % (11.7-14.4)
[2018-11-28 22:45] LABS: BILIRUBIN,URINE NEGATIVE (NEGATIVE); CLARITY,URINE CLEAR (CLEAR); COLOR,URINE YELLOW (YELLOW); KETONES,URINE NEGATIVE (NEGATIVE); LEUKOCYTE ESTERASE ,URINE NEGATIVE (NEGATIVE); NITRITE,URINE NEGATIVE (NEGATIVE); PROTEIN,URINE DIPSTICK NEGATIVE (NEGATIVE); URINE UROBILINOGEN 0.2 mg/dL (0.2 - 1)
[2018-11-28 23:02] LABS: ALANINE AMINOTRANSFERASE 23 IU/L (0-55); ALBUMIN 3.7 g/dL (3.5-5.0); ALKALINE PHOSPHATASE 61 IU/L (40-150); ANION GAP 13.2 mmol/L (8-16); BLOOD UREA NITROGEN 19 mg/dL (7-26); BUN/CREATININE RATIO 21 (6-25); CALCIUM 9.8 mg/dL (8.4-10.2); CARBON DIOXIDE 27 mmol/L (22-29); CHLORIDE 101 mmol/L (98-107); EST GLOMERULAR FILTRATION RATE > 60 ML/MIN (60-); GLUCOSE 86 mg/dL (74-118); POTASSIUM 4.2 mmol/L (3.5-5.1); SODIUM 137 mmol/L (136-145)
[2018-11-28 23:04] LABS: BACTERIA,URINE FEW /HPF; EPITHELIAL CELLS,URINE FEW /LPF; RBC,URINE 0-5 /HPF (0-5); WBC,URINE (MAN) 0-5 /HPF (0-5)
[2018-11-28 23:48] VITALS: BP 132/84
== END 2018-11-28 23:50 | disposition home or self-care (01) ==
LOC: ER 18:50
DX: G44.89 Other headache syndrome (principal); I10 Essential (primary) hypertension; E11.9 Type 2 diabetes mellitus without complications; E78.5 Hyperlipidemia, unspecified; K21.9 Gastro-esophageal reflux disease without esophagitis; F41.9 Anxiety disorder, unspecified
CPT/HCPCS: 36415; 80053; 81001; 82948; 85025; 99283

== ENCOUNTER 2019-04-21 15:38 | Emergency (ER) | payer OTHER ==
[~2019-04-21] VITALS: Ht 160 cm; Wt 72.6 kg
[2019-04-21 16:16] LABS: BASOPHILS % 0.3 % (0.0-1.0); EOSINOPHILS # (AUTO) 0.3 (0.0-0.4); EOSINOPHILS % 4.1 % (0.0-6.0); HEMATOCRIT 36.9 % (34.2-44.1); HEMOGLOBIN 12.2 g/dL (12.0-16.0); LYMPHOCYTES # (AUTO) 2.1 (1.0-3.2); LYMPHOCYTES % 33.4 % (18.0-39.1); MEAN CORPUSCULAR HEMOGLOBIN 29.8 pg (28-32); MEAN CORPUSCULAR HGB CONC 33.1 g/dL (31-35); MONOCYTES # (AUTO) 0.4 (0.2-0.8); MONOCYTES % 6.2 % (4.4-11.3); NEUTROPHILS # (AUTO) 3.4 (2.1-6.9); NEUTROPHILS % 55.5 % (38.7-80.0); PLATELET COUNT 165 x10e3/uL (140-360); RED CELL DISTRIBUTION WIDTH 13.9 % (11.7-14.4)
[2019-04-21] MEDS ORDERED: ACETAMINOPHEN/CODEINE 300MG - 30MG TAB PO ONE (16:30)
[2019-04-21 16:31] LABS: STREPTOCOCCUS GRP A ANTIGEN NEGATIVE (NEGATIVE)
[2019-04-21 16:33] LABS: INFLUENZAE A&B ANTIGEN (RAPID) NEGATIVE (NEGATIVE)
[2019-04-21 16:34] LABS: ANION GAP 18.8 mmol/L (8-16); CARBON DIOXIDE 18 mmol/L (22-29); CHLORIDE 104 mmol/L (98-107); POTASSIUM 4.8 mmol/L (3.5-5.1); SODIUM 136 mmol/L (136-145)
--- NOTE | 2019-04-21 16:39 | Diagnostic Imaging Report ---
Chest, PA and lateral. History: Cough, back pain. Comparison: Chest radiograph dated 08/08/2018. Discussion: The heart is within normal limits of size. The mediastinal and hilar contours are unremarkable. There is minimal left basilar atelectasis. No focal consolidation, pleural effusion, or pneumothorax. There are no acute osseous abnormalities. Mild degenerative changes of the thoracic spine are present. IMPRESSION: No acute cardiopulmonary abnormality. Signed by: Peewee Harrington MD on 04/21/2019 4:30 PM
[2019-04-21] MEDS ORDERED: PROAIR HFA INH8.5 GM INH (16:45)
[2019-04-21] MEDS ORDERED: TYLENOL WITH C1 EACH PO (16:45)
[2019-04-21 16:51] LABS: ALANINE AMINOTRANSFERASE 39 IU/L (0-55); ALBUMIN 3.9 g/dL (3.5-5.0); ALBUMIN/GLOBULIN RATIO 0.9 (0.8-2.0); ALKALINE PHOSPHATASE 90 IU/L (40-150); BLOOD UREA NITROGEN 15 mg/dL (7-26); BUN/CREATININE RATIO 19 (6-25); CREATININE, SERUM 0.78 mg/dL (0.57-1.11); EST GLOMERULAR FILTRATION RATE > 60 ML/MIN (60-); GLUCOSE 102 mg/dL (74-118)
== END 2019-04-21 16:47 | disposition home or self-care (01) ==
LOC: ER 15:38
DX: R05 Cough (principal); J20.9 Acute bronchitis, unspecified
CPT/HCPCS: 36415; 71046; 80053; 83518; 85025; 87070; 87400; 93005; 99284

== ENCOUNTER 2019-07-02 17:50 | Emergency (ER) | payer OTHER ==
[~2019-07-02] VITALS: Ht 160 cm; Wt 72.6 kg
[~2019-07-02 17:50] MED LIST changes: +PROAIR HFA INH8.5 GM INH; +TYLENOL WITH C1 EACH PO
[2019-07-02] MEDS ORDERED: KETOROLAC TROMETHAMINE 30 MG/ML VIAL IV ONE (18:00)
[2019-07-02] MEDS: SODIUM CHLORIDE 0.9% 1000ML 1,000 ML IV STA (18:30)
[2019-07-02] MEDS: FAMOTIDINE 20 MG/2 ML VIAL IV ONE (18:30)
[2019-07-02] MEDS: PROMETHAZINE 25MG/ NS 50ML (IV) IV ONE (18:30)
--- NOTE | 2019-07-02 18:30 | NUR ---
PATIENT TO ROOM 10
[2019-07-02 18:37] LABS: BASOPHILS % 0.3 % (0.0-1.0); EOSINOPHILS # (AUTO) 0.2 (0.0-0.4); EOSINOPHILS % 2.1 % (0.0-6.0); HEMATOCRIT 42.4 % (34.2-44.1); HEMOGLOBIN 14.2 g/dL (12.0-16.0); LYMPHOCYTES # (AUTO) 0.8 (1.0-3.2); LYMPHOCYTES % 7.2 % (18.0-39.1); MEAN CORPUSCULAR HEMOGLOBIN 29.3 pg (28-32); MEAN CORPUSCULAR HGB CONC 33.5 g/dL (31-35); MEAN CORPUSCULAR VOLUME 87.6 fL (81-99); MONOCYTES # (AUTO) 0.4 (0.2-0.8); MONOCYTES % 3.5 % (4.4-11.3); NEUTROPHILS # (AUTO) 9.3 (2.1-6.9); NEUTROPHILS % 86.5 % (38.7-80.0); PLATELET COUNT 201 x10e3/uL (140-360); RED BLOOD COUNT 4.84 x10e6/uL (3.6-5.1); RED CELL DISTRIBUTION WIDTH 14.2 % (11.7-14.4)
[2019-07-02] MEDS ORDERED: DIATRIZOATE MEGL/DIATRIZOA SOD 30 ML BTL PO ONE (18:41)
[2019-07-02 18:46] LABS: ALANINE AMINOTRANSFERASE 44 IU/L (0-55); ALBUMIN 4.5 g/dL (3.5-5.0); ALBUMIN/GLOBULIN RATIO 1.1 (0.8-2.0); ALKALINE PHOSPHATASE 79 IU/L (40-150); AMYLASE 45 U/L (25-125); ANION GAP 16.6 mmol/L (8-16); BLOOD UREA NITROGEN 23 mg/dL (7-26); BUN/CREATININE RATIO 20 (6-25); CALCIUM 10.4 mg/dL (8.4-10.2); CARBON DIOXIDE 24 mmol/L (22-29); CHLORIDE 103 mmol/L (98-107); CREATINE KINASE 209 IU/L (29-168); CREATININE, SERUM 1.17 mg/dL (0.57-1.11); EST GLOMERULAR FILTRATION RATE 47 ML/MIN (60-); GLUCOSE 131 mg/dL (74-118); LIPASE 26 U/L (8-78); POTASSIUM 4.6 mmol/L (3.5-5.1); SODIUM 139 mmol/L (136-145)
[2019-07-02 19:15] LABS: CLARITY,URINE CLEAR (CLEAR); COLOR,URINE YELLOW (YELLOW)
[2019-07-02 19:16] LABS: BILIRUBIN,URINE NEGATIVE (NEGATIVE); KETONES,URINE NEGATIVE (NEGATIVE); LEUKOCYTE ESTERASE ,URINE NEGATIVE (NEGATIVE); NITRITE,URINE NEGATIVE (NEGATIVE); PROTEIN,URINE DIPSTICK NEGATIVE (NEGATIVE); URINE UROBILINOGEN 0.2 mg/dL (0.2 - 1)
[2019-07-02 19:18] LABS: EPITHELIAL CELLS,URINE FEW /LPF; MUCUS,URINE MODERATE (RARE); RBC,URINE 0-5 /HPF (0-5); WBC,URINE (MAN) 0-5 /HPF (0-5)
--- NOTE | 2019-07-02 19:18 | NUR ---
rec'd report from tate schmitz
[2019-07-02] MEDS: ACETAMINOPHEN/CODEINE 300MG - 30MG TAB PO ONE (21:40)
--- NOTE | 2019-07-02 22:09 | Diagnostic Imaging Report ---
EXAM: CT Abdomen and Pelvis WITH contrast INDICATION: Abdominal pain COMPARISON: None TECHNIQUE: The abdomen and pelvis were scanned utilizing a multidetector helical scanner from the lung base to the pubic symphysis after administration of IV contrast. Coronal and sagittal reformations were obtained. Routine protocol was performed. Scan was performed when during portal venous phase. IV CONTRAST: 100 mL of Isovue 370 ORAL CONTRAST: Gastrografin COMPLICATIONS: None RADIATION DOSE: Total DLP: 457 mGy*cm Estimated effective dose: (DLP x 0.015 x size factor) mSv CTDIvol has been reviewed. It is below the limits set by the Radiation Protocol Committee (RPC). Dose modulation, iterative reconstruction, and/or weight based adjustment of the mA/kV was utilized to reduce the radiation dose to as low as reasonably achievable. FINDINGS: LINES and TUBES: None. LOWER THORAX: There is bibasilar atelectasis. Benign calcified granuloma in the left lung base. HEPATOBILIARY: A 2.1 cm cyst in the inferior right hepatic lobe. Additional subcentimeter hypodensity in the superior right hepatic lobe is too small to characterize, likely benign No biliary ductal dilation. GALLBLADDER: There are cholecystectomy clips. SPLEEN: No splenomegaly. PANCREAS: No focal masses or ductal dilatation. ADRENALS: No adrenal nodules KIDNEYS/URETERS: Kidneys enhance symmetrically. No hydronephrosis. No cystic or solid mass lesions. No stones. GI TRACT: No abnormal distention, wall thickening, or evidence of bowel obstruction. Appendix is normal. A 2.8 cm air and fluid containing second segment duodenal diverticulum. Fluidlike stool throughout the colon with layering mostly fluid stool in the rectum. PELVIC ORGANS/BLADDER: Unremarkable. LYMPH NODES: No lymphadenopathy. VESSELS: Unremarkable. PERITONEUM / RETROPERITONEUM: No free air or fluid. BONES: Right lower lobe costochondral deformities. Degenerative changes in the spine hips and pelvis. SOFT TISSUES: Unremarkable. IMPRESSION: 1. Fluidlike stool throughout the colon can be seen with enterocolitis. 2. A second segment duodenal diverticulum may be incidental although these can occasionally be symptomatic. 3. Bibasilar atelectasis. Signed by: Herson Amaral DO on 07/02/2019 10:07 PM
[2019-07-02 22:30] VITALS: BP 117/72
== END 2019-07-02 22:55 | disposition home or self-care (01) ==
LOC: ER 17:50
DX: R10.33 Periumbilical pain (principal); R11.2 Nausea with vomiting, unspecified; K52.9 Noninfective gastroenteritis and colitis, unspecified; E86.0 Dehydration
CPT/HCPCS: 36415; 74177; 80053; 81001; 82150; 82550; 82553; 83690; 84484; 85025; 99284; J2550; J7030

== ENCOUNTER 2021-10-06 16:44 | Emergency (ER) | payer BC, OTHER ==
[~2021-10-06] VITALS: Ht 160 cm; Wt 72.6 kg
[2021-10-06] MEDS ORDERED: SODIUM CHLORIDE 0.9% 1000ML 1,000 ML IV STA (18:26)
[2021-10-06] MEDS ORDERED: ACETAMINOPHEN 325 MG TAB PO ONE (18:30)
[2021-10-06 18:42] LABS: BASOPHILS # (AUTO) 0.1 (0.0-0.1); EOSINOPHILS # (AUTO) 0.1 (0.0-0.4); EOSINOPHILS % 1.4 % (0.0-6.0); HEMATOCRIT 37.3 % (34.2-44.1); HEMOGLOBIN 12.2 g/dL (12.0-16.0); LYMPHOCYTES # (AUTO) 1.3 (1.0-3.2); LYMPHOCYTES % 26.2 % (18.0-39.1); MEAN CORPUSCULAR HGB CONC 32.7 g/dL (31-35); MEAN CORPUSCULAR VOLUME 88.8 fL (81-99); MONOCYTES # (AUTO) 0.5 (0.2-0.8); MONOCYTES % 9.6 % (4.4-11.3); NEUTROPHILS % 59.6 % (38.7-80.0); PLATELET COUNT 194 x10e3/uL (140-360); RED CELL DISTRIBUTION WIDTH 13.6 % (11.7-14.4)
[2021-10-06 18:45] LABS: INR 1.03; PARTIAL THROMBOPLASTIN TIME 24.8 seconds (23.8-35.5); PROTHROMBIN TIME 14.4 seconds (11.9-14.5)
[2021-10-06 18:54] LABS: ALANINE AMINOTRANSFERASE 124 IU/L (0-55); ALBUMIN 3.5 g/dL (3.5-5.0); ANION GAP 14.2 mmol/L (8-16); BLOOD UREA NITROGEN 20 mg/dL (7-26); BUN/CREATININE RATIO 17 (6-25); CALCIUM 8.9 mg/dL (8.4-10.2); CARBON DIOXIDE 24 mmol/L (22-29); CHLORIDE 100 mmol/L (98-107); CREATININE, SERUM 1.18 mg/dL (0.57-1.11); EST GLOMERULAR FILTRATION RATE 46 ML/MIN (60-); GLUCOSE 258 mg/dL (74-118); POTASSIUM 4.2 mmol/L (3.5-5.1); SODIUM 134 mmol/L (136-145)
[2021-10-06 18:55] LABS: ALBUMIN/GLOBULIN RATIO 0.8 (0.8-2.0); ALKALINE PHOSPHATASE 60 IU/L (40-150); CREATINE KINASE 227 IU/L (29-168)
[2021-10-06 19:00] LABS: CLARITY,URINE SL CLOUDY (CLEAR); COLOR,URINE STRAW (YELLOW); KETONES,URINE NEGATIVE (NEGATIVE); LEUKOCYTE ESTERASE ,URINE NEGATIVE (NEGATIVE); NITRITE,URINE NEGATIVE (NEGATIVE); PROTEIN,URINE DIPSTICK NEGATIVE (NEGATIVE); URINE UROBILINOGEN 1 mg/dL (0.2 - 1)
[2021-10-06 19:00] LABS: B-TYPE NATRIURETIC PEPTIDE2 15.2 pg/mL (0-100)
[2021-10-06 19:18] LABS: BACTERIA,URINE FEW /HPF; EPITHELIAL CELLS,URINE FEW /LPF
[2021-10-06] MEDS ORDERED: DOXYCYCLINE HY100 MG PO (20:58)
[2021-10-06 21:07] VITALS: BP 116/71
[2021-10-06 21:11] LABS: EOSINOPHILS % (MANUAL) 1 % (0-7); LYMPHOCYTES % (MANUAL) 16 % (19-48); MONOCYTES % (MANUAL) 11 % (3.4-9.0); NEUTROPHILS % (MANUAL) 70 % (40-74); PLATELET ESTIMATE ADEQUATE; PLATELET MORPHOLOGY COMMENT NORMAL; RBC MORPHOLOGY COMMENT NORMAL
[2021-10-07] MEDS ORDERED: IOPAMIDOL 370 MG/ML 100 ML INFUS..BTL INJ ONE (06:20)
== END 2021-10-06 21:10 | disposition home or self-care (01) ==
LOC: ER 18:27
DX: J18.9 Pneumonia, unspecified organism (principal); R50.9 Fever, unspecified; I10 Essential (primary) hypertension; E11.65 Type 2 diabetes mellitus with hyperglycemia; K57.90 Diverticulosis of intestine, part unspecified, without perforation or abscess without bleeding; E78.5 Hyperlipidemia, unspecified; F41.9 Anxiety disorder, unspecified; K21.9 Gastro-esophageal reflux disease without esophagitis; B19.10 Unspecified viral hepatitis B without hepatic coma; Z20.822 Contact with and (suspected) exposure to COVID-19; R91.8 Other nonspecific abnormal finding of lung field
CPT/HCPCS: 36415; 70496; 70498; 71045; 74177; 80053; 81001; 82550; 82553; 83605; 83690; 83880; 84484; 85025; 85610; 85730; 87040; 87086; 93005; 99284; J0696; J7030; U0002; Q9967

== ENCOUNTER 2021-10-08 13:56 | Emergency (ER) | payer BC, OTHER ==
[~2021-10-08] VITALS: Ht 160 cm; Wt 72.6 kg
[~2021-10-08 13:56] MED LIST changes: +DOXYCYCLINE HY100 MG PO
[2021-10-08 15:10] LABS: BASOPHILS # (AUTO) 0.1 (0.0-0.1); BASOPHILS % 1.2 % (0.0-1.0); EOSINOPHILS # (AUTO) 0.2 (0.0-0.4); EOSINOPHILS % 4.4 % (0.0-6.0); HEMATOCRIT 34.9 % (34.2-44.1); HEMOGLOBIN 11.2 g/dL (12.0-16.0); LYMPHOCYTES # (AUTO) 1.5 (1.0-3.2); LYMPHOCYTES % 30.4 % (18.0-39.1); MEAN CORPUSCULAR HEMOGLOBIN 29.1 pg (28-32); MEAN CORPUSCULAR HGB CONC 32.1 g/dL (31-35); MEAN CORPUSCULAR VOLUME 90.6 fL (81-99); MONOCYTES # (AUTO) 0.5 (0.2-0.8); MONOCYTES % 9.5 % (4.4-11.3); NEUTROPHILS # (AUTO) 2.7 (2.1-6.9); NEUTROPHILS % 52.5 % (38.7-80.0); PLATELET COUNT 199 x10e3/uL (140-360); RED BLOOD COUNT 3.85 x10e6/uL (3.6-5.1)
[2021-10-08 15:27] LABS: ALBUMIN 3.4 g/dL (3.5-5.0); ALBUMIN/GLOBULIN RATIO 0.8 (0.8-2.0); ANION GAP 12.3 mmol/L (8-16); CALCIUM 8.9 mg/dL (8.4-10.2); CREATININE, SERUM 1.03 mg/dL (0.57-1.11); POTASSIUM 4.3 mmol/L (3.5-5.1)
[2021-10-08] MEDS ORDERED: ANAPROX DS550 MG PO (18:19)
[2021-10-08] MEDS ORDERED: IOPAMIDOL 370 MG/ML 100 ML INFUS..BTL INJ ONE (19:36)
== END 2021-10-08 18:24 | disposition home or self-care (01) ==
LOC: ER 14:11
DX: R07.81 Pleurodynia (principal); R53.81 Other malaise; E11.65 Type 2 diabetes mellitus with hyperglycemia; I10 Essential (primary) hypertension; E78.5 Hyperlipidemia, unspecified; K21.9 Gastro-esophageal reflux disease without esophagitis; F41.9 Anxiety disorder, unspecified; B19.10 Unspecified viral hepatitis B without hepatic coma; R94.31 Abnormal electrocardiogram [ECG] [EKG]
CPT/HCPCS: 36415; 71046; 71260; 80053; 84484; 85025; 85379; 93005; 99284; Q9967

== ENCOUNTER 2021-12-04 09:14 | Emergency (ER) | payer OTHER ==
[~2021-12-04] VITALS: Ht 160 cm; Wt 72.6 kg
[~2021-12-04 09:14] MED LIST changes: +ANAPROX DS550 MG PO
[2021-12-04] MEDS ORDERED: DEXAMETHASONE 4 MG TAB PO STA (09:19)
[2021-12-04] MEDS ORDERED: LIDOCAINE 4% PATCH TP STA (09:19)
[2021-12-04] MEDS ORDERED: LIDOCAINE1 EAC1 EXT (09:35)
[2021-12-04] MEDS ORDERED: METHOCARBAMOL500 MG PO (09:36)
[2021-12-04] MEDS ORDERED: DEXAMETHASONE SOD PHOS 10 MG/1 ML VIAL ONE (09:46)
[2021-12-04] MEDS ORDERED: ACETAMINOPHEN 325 MG TAB ONE (09:46)
[2021-12-04] MEDS ORDERED: DEXAMETHASONE SOD PHOS 10 MG/1 ML VIAL IM ONE (10:00)
[2021-12-04] MEDS ORDERED: ACETAMINOPHEN 325 MG TAB PO ONE (10:00)
[2021-12-04 10:10] LABS: CLARITY,URINE CLEAR (CLEAR); COLOR,URINE YELLOW (YELLOW); KETONES,URINE NEGATIVE (NEGATIVE); LEUKOCYTE ESTERASE ,URINE NEGATIVE (NEGATIVE); NITRITE,URINE NEGATIVE (NEGATIVE); PROTEIN,URINE DIPSTICK TRACE (NEGATIVE); URINE UROBILINOGEN 0.2 mg/dL (0.2 - 1)
[2021-12-04 10:22] LABS: BACTERIA,URINE RARE /HPF; EPITHELIAL CELLS,URINE FEW /LPF; RBC,URINE 0-5 /HPF (0-5); WBC,URINE (MAN) 0-5 /HPF (0-5)
== END 2021-12-04 10:40 | disposition home or self-care (01) ==
LOC: ER 09:19
DX: M54.6 Pain in thoracic spine (principal); M79.18 Myalgia, other site; I10 Essential (primary) hypertension; E11.9 Type 2 diabetes mellitus without complications; E78.5 Hyperlipidemia, unspecified; K21.9 Gastro-esophageal reflux disease without esophagitis; F32.A Depression, unspecified; B19.10 Unspecified viral hepatitis B without hepatic coma
CPT/HCPCS: 81001; 99284; J1100

== ENCOUNTER 2022-02-27 16:46 | Emergency (ER) | payer OTHER ==
[~2022-02-27] VITALS: Ht 160 cm; Wt 68.2 kg
[~2022-02-27 16:46] MED LIST changes: +LIDOCAINE1 EAC1 EXT; +METHOCARBAMOL500 MG PO
[2022-02-27] MEDS ORDERED: KETOROLAC TROMETHAMINE 30 MG/ML VIAL IV STA (17:14)
[2022-02-27] MEDS ORDERED: ONDANSETRON HCL INJ 2MG/ML 2ML 2 MG/ML VIAL IV STA (17:14)
[2022-02-27] MEDS ORDERED: SODIUM CHLORIDE 0.9% 1000ML 1,000 ML IV STA (17:14)
[2022-02-27] MEDS ORDERED: Morphine 2mg Syringe 2 MG/ML SYR IV ONE (17:30)
[2022-02-27] MEDS ORDERED: ONDANSETRON HCL INJ 2MG/ML 2ML 2 MG/ML VIAL ONE (17:30)
[2022-02-27] MEDS ORDERED: IOPAMIDOL 370 MG/ML 100 ML INFUS..BTL INJ ONE (17:31)
[2022-02-27] MEDS ORDERED: Morphine 4mg INJECTION 4 MG/ML INJ ONE (17:37)
[2022-02-27] MEDS ORDERED: FAMOTIDINE20 MG PO (19:08)
== END 2022-02-27 20:15 | disposition home or self-care (01) ==
LOC: FSED 17:29
DX: R10.30 Lower abdominal pain, unspecified (principal); K44.9 Diaphragmatic hernia without obstruction or gangrene; R11.2 Nausea with vomiting, unspecified; K57.90 Diverticulosis of intestine, part unspecified, without perforation or abscess without bleeding; N28.1 Cyst of kidney, acquired; I10 Essential (primary) hypertension; E11.65 Type 2 diabetes mellitus with hyperglycemia; E11.40 Type 2 diabetes mellitus with diabetic neuropathy, unspecified; E78.5 Hyperlipidemia, unspecified; K21.9 Gastro-esophageal reflux disease without esophagitis; F41.9 Anxiety disorder, unspecified; B19.10 Unspecified viral hepatitis B without hepatic coma
CPT/HCPCS: 74177; 80048; 80076; 81003; 85025; 96374; 99283; J2270; J2405; Q9967

== ENCOUNTER 2022-07-03 18:24 | Inpatient (IN) | payer MEDICARE ==
[~2022-07-03] VITALS: Ht 160 cm; Wt 68.2 kg
[~2022-07-03 18:24] MED LIST changes: +FAMOTIDINE20 MG PO
[2022-07-03] MEDS ORDERED: ACETAMINOPHEN 325 MG TAB PO ONE (19:00)
[2022-07-03 19:07] LABS: BASOPHILS # (AUTO) 0.1 (0.0-0.1); BASOPHILS % 0.6 % (0.0-1.0); EOSINOPHILS # (AUTO) 0.2 (0.0-0.4); EOSINOPHILS % 1.8 % (0.0-6.0); HEMATOCRIT 38.8 % (34.2-44.1); HEMOGLOBIN 12.8 g/dL (12.0-16.0); LYMPHOCYTES # (AUTO) 0.7 (1.0-3.2); MEAN CORPUSCULAR HEMOGLOBIN 28.9 pg (28-32); MEAN CORPUSCULAR VOLUME 87.6 fL (81-99); MONOCYTES # (AUTO) 0.9 (0.2-0.8); MONOCYTES % 8.2 % (4.4-11.3); NEUTROPHILS # (AUTO) 8.6 (2.1-6.9); NEUTROPHILS % 81.9 % (38.7-80.0); PLATELET COUNT 182 x10e3/uL (140-360); RED BLOOD COUNT 4.43 x10e6/uL (3.6-5.1); RED CELL DISTRIBUTION WIDTH 14.9 % (11.7-14.4)
[2022-07-03] MEDS ORDERED: ACETAMINOPHEN 325 MG TAB ONE (19:07)
[2022-07-03] MEDS ORDERED: SODIUM CHLORIDE 0.9% 1000ML 1,000 ML IV STA ×2 (19:21)
[2022-07-03 19:25] LABS: ALBUMIN 3.6 g/dL (3.5-5.0); ALBUMIN/GLOBULIN RATIO 0.8 (0.8-2.0); ANION GAP 21.1 mmol/L (8-16); CALCIUM 9.6 mg/dL (8.4-10.2); CREATININE, SERUM 1.35 mg/dL (0.57-1.11); POTASSIUM 4.1 mmol/L (3.5-5.1)
[2022-07-03] MEDS ORDERED: Vancomycin IV 1 GM in SODIUM CHLORIDE 0.9% 250ML 250 ML IV SCH (19:30)
[2022-07-03] MEDS ORDERED: FENTANYL CITRATE/PF 100MCG/2 ML INJ IV ONE (19:45)
[2022-07-03] MEDS ORDERED: Vancomycin IV 1 GM VIAL ONE (19:53)
[2022-07-03] MEDS ORDERED: SODIUM CHLORIDE 0.9% 250ML 250 ML ONE (19:53)
[2022-07-03] MEDS ORDERED: PIPERACILLIN/TAZOBACTAM 3.375 GM VIAL ONE (19:53)
[2022-07-03] MEDS: ONDANSETRON HCL INJ 2MG/ML 2ML 2 MG/ML VIAL IV PRN (20:12)
[2022-07-03 20:20] LABS: CLARITY,URINE SL CLOUDY (CLEAR); COLOR,URINE YELLOW (YELLOW); KETONES,URINE NEGATIVE (NEGATIVE); LEUKOCYTE ESTERASE ,URINE SMALL (NEGATIVE); NITRITE,URINE NEGATIVE (NEGATIVE); PROTEIN,URINE DIPSTICK 2+ (NEGATIVE); URINE UROBILINOGEN 0.2 mg/dL (0.2 - 1)
[2022-07-03 20:35] LABS: BACTERIA,URINE MANY /HPF; EPITHELIAL CELLS,URINE FEW /LPF
[2022-07-03] MEDS ORDERED: IOPAMIDOL 370 MG/ML 100 ML INFUS..BTL INJ ONE (20:46)
[2022-07-03] MEDS ORDERED: ONDANSETRON HCL INJ 2MG/ML 2ML 2 MG/ML VIAL IV PRN (22:00)
[2022-07-03] MEDS: SODIUM CHLORIDE 0.9% 1000ML 1,000 ML IV SCH (22:19)
[2022-07-03 22:39] LABS: CREATINE KINASE MB 0.9 ng/mL (0-5.0)
[2022-07-04] MEDS ORDERED: ACETAMINOPHEN 325 MG TAB PO ONE (00:15)
[2022-07-04] MEDS ORDERED: ACETAMINOPHEN 325 MG TAB ONE ×2 (00:20→06:25)
[2022-07-04 03:36] LABS: BASOPHILS % 0.6 % (0.0-1.0); EOSINOPHILS # (AUTO) 0.1 (0.0-0.4); EOSINOPHILS % 1.5 % (0.0-6.0); HEMATOCRIT 30.8 % (34.2-44.1); HEMOGLOBIN 10.3 g/dL (12.0-16.0); LYMPHOCYTES # (AUTO) 0.6 (1.0-3.2); LYMPHOCYTES % 7.6 % (18.0-39.1); MEAN CORPUSCULAR HGB CONC 33.4 g/dL (31-35); MEAN CORPUSCULAR VOLUME 86.8 fL (81-99); MONOCYTES # (AUTO) 0.8 (0.2-0.8); MONOCYTES % 10.5 % (4.4-11.3); NEUTROPHILS # (AUTO) 5.8 (2.1-6.9); NEUTROPHILS % 79.2 % (38.7-80.0); PLATELET COUNT 138 x10e3/uL (140-360); RED BLOOD COUNT 3.55 x10e6/uL (3.6-5.1)
[2022-07-04 03:53] LABS: ALBUMIN 2.7 g/dL (3.5-5.0); ALBUMIN/GLOBULIN RATIO 0.8 (0.8-2.0); ANION GAP 13.6 mmol/L (8-16); CALCIUM 7.7 mg/dL (8.4-10.2); CREATININE, SERUM 0.99 mg/dL (0.57-1.11); POTASSIUM 3.6 mmol/L (3.5-5.1)
[2022-07-04 04:14] LABS: CREATINE KINASE MB 0.7 ng/mL (0-5.0)
[2022-07-04] MEDS: SODIUM CHLORIDE 0.9% 1000ML 1,000 ML IV SCH ×3 (05:41→22:00)
[2022-07-04] MEDS: ACETAMINOPHEN 325 MG TAB PO PRN (06:15)
[2022-07-04] MEDS ORDERED: Vancomycin IV 1 GM in SODIUM CHLORIDE 0.9% 250ML 250 ML IV SCH (09:30)
[2022-07-04] MEDS: ONDANSETRON HCL INJ 2MG/ML 2ML 2 MG/ML VIAL IV PRN (10:41)
[2022-07-04] MEDS: Morphine 4mg INJECTION 4 MG/ML INJ IV PRN (10:42)
[2022-07-04 11:00] VITALS: BP 124/63
[2022-07-04 12:09] VITALS: BP 124/63
[2022-07-04 12:45] LABS: CREATINE KINASE MB 0.6 ng/mL (0-5.0)
[2022-07-04] MEDS ORDERED: GABAPENTIN 100 MG CAP PO SCH (15:45)
[2022-07-04] MEDS ORDERED: MAGNESIUM/ALUMINUM/SIMETHICONE 30 ML UDC PO PRN (15:45)
[2022-07-04] MEDS ORDERED: DOCUSATE SODIUM 100 MG CAP PO PRN (15:45)
[2022-07-04] MEDS ORDERED: HYDRALAZINE HCL 20 MG/ML VIAL IV PRN (15:45)
[2022-07-04] MEDS ORDERED: DEXTROSE 50% SYRINGE 50 ML IV PRN (15:45)
[2022-07-04] MEDS ORDERED: GUAIFENESIN/DEXTROMETHORPHAN LIQD 5 ML UDC PO PRN (15:45)
[2022-07-04] MEDS ORDERED: GENTAMICIN 80MG/NS 100 ML 100 ML IV ONE (15:45)
[2022-07-04 16:25] VITALS: BP 137/78
[2022-07-04] MEDS: INSULIN REGULAR, HUMAN 100 UNIT/1 ML SQ SCH ×2 (16:30→22:26)
[2022-07-04] MEDS: DOCUSATE SODIUM 100 MG CAP PO SCH (17:47)
[2022-07-04] MEDS: ENOXAPARIN SOD INJ 40 MG/0.4 ML SYR SC SCH (17:47)
[2022-07-04 20:00] VITALS: BP 98/48
[2022-07-04] MEDS ORDERED: MELATONIN 3 MG TAB PO PRN (21:00)
[2022-07-04 23:28] VITALS: BP 110/57
[2022-07-05 04:00] VITALS: BP 112/60
[2022-07-05] MEDS: SODIUM CHLORIDE 0.9% 1000ML 1,000 ML IV SCH ×3 (06:31→21:34)
[2022-07-05] MEDS: ACETAMINOPHEN 325 MG TAB PO PRN ×3 (06:34→22:37)
[2022-07-05] MEDS: INSULIN REGULAR, HUMAN 100 UNIT/1 ML SQ SCH ×4 (07:30→20:36)
[2022-07-05 08:00] VITALS: BP 112/60
[2022-07-05 08:20] VITALS: BP 106/59
[2022-07-05] MEDS: LOSARTAN POTASSIUM 100 MG TAB PO SCH (09:00)
[2022-07-05] MEDS: GABAPENTIN 100 MG CAP PO SCH ×2 (09:46→20:36)
[2022-07-05] MEDS: MULTIVITAMINS/MINERALS TAB PO SCH (09:46)
[2022-07-05] MEDS: DOCUSATE SODIUM 100 MG CAP PO SCH ×2 (09:46→17:08)
[2022-07-05] MEDS: FAMOTIDINE 20 MG TAB PO SCH (09:46)
[2022-07-05] MEDS: FENOFIBRATE 145 MG TAB PO SCH (09:47)
[2022-07-05 12:08] VITALS: BP 92/61
[2022-07-05 16:36] VITALS: BP 120/64
[2022-07-05] MEDS: ENOXAPARIN SOD INJ 40 MG/0.4 ML SYR SC SCH (17:09)
[2022-07-05 20:00] VITALS: BP 134/68
[2022-07-05] MEDS: Morphine 4mg INJECTION 4 MG/ML INJ IV PRN (23:01)
[2022-07-06] VITALS (8 sets, daily range): BP systolic 110–134; BP diastolic 60–79
[2022-07-06] MEDS: ACETAMINOPHEN 325 MG TAB PO PRN (04:55)
[2022-07-06] MEDS: SODIUM CHLORIDE 0.9% 1000ML 1,000 ML IV SCH ×3 (06:00→20:48)
[2022-07-06] MEDS: INSULIN REGULAR, HUMAN 100 UNIT/1 ML SQ SCH ×4 (07:30→21:00)
[2022-07-06] MEDS: LOSARTAN POTASSIUM 100 MG TAB PO SCH (09:00)
[2022-07-06] MEDS: GABAPENTIN 100 MG CAP PO SCH ×2 (09:39→20:46)
[2022-07-06] MEDS: FAMOTIDINE 20 MG TAB PO SCH (09:39)
[2022-07-06] MEDS: DOCUSATE SODIUM 100 MG CAP PO SCH ×2 (09:39→17:20)
[2022-07-06] MEDS: MULTIVITAMINS/MINERALS TAB PO SCH (09:39)
[2022-07-06] MEDS: FENOFIBRATE 145 MG TAB PO SCH (09:39)
[2022-07-06] MEDS: CEFAZOLIN SODIUM 2 GM in SODIUM CHLORIDE 0.9% 100 ML IV SCH ×2 (15:00→20:47)
[2022-07-06] MEDS: ONDANSETRON HCL 4 MG ORAL DISINTEGRATING TAB PO PRN ×2 (16:04→21:47)
[2022-07-06] MEDS: Morphine 4mg INJECTION 4 MG/ML INJ IV PRN ×2 (16:07→21:48)
[2022-07-06] MEDS: ENOXAPARIN SOD INJ 40 MG/0.4 ML SYR SC SCH (17:20)
[2022-07-07] VITALS (8 sets, daily range): BP systolic 105–144; BP diastolic 61–81
[2022-07-07] MEDS: Morphine 4mg INJECTION 4 MG/ML INJ IV PRN ×3 (01:53→21:31)
[2022-07-07] MEDS: CEFAZOLIN SODIUM 2 GM in SODIUM CHLORIDE 0.9% 100 ML IV SCH ×3 (05:11→20:58)
[2022-07-07] MEDS: INSULIN REGULAR, HUMAN 100 UNIT/1 ML SQ SCH ×4 (07:30→21:00)
[2022-07-07] MEDS: SODIUM CHLORIDE 0.9% 1000ML 1,000 ML IV SCH ×3 (07:56→20:58)
[2022-07-07] MEDS: MULTIVITAMINS/MINERALS TAB PO SCH (09:03)
[2022-07-07] MEDS: GABAPENTIN 100 MG CAP PO SCH ×2 (09:04→20:58)
[2022-07-07] MEDS: LOSARTAN POTASSIUM 100 MG TAB PO SCH (09:04)
[2022-07-07] MEDS: FAMOTIDINE 20 MG TAB PO SCH (09:04)
[2022-07-07] MEDS: DOCUSATE SODIUM 100 MG CAP PO SCH ×2 (09:04→18:12)
[2022-07-07] MEDS: FENOFIBRATE 145 MG TAB PO SCH (09:04)
[2022-07-07] MEDS: ACETAMINOPHEN 325 MG TAB PO PRN (11:04)
[2022-07-07] MEDS: CEPACOL SORE THROAT LOZENGES PO PRN (13:52)
[2022-07-07] MEDS: ENOXAPARIN SOD INJ 40 MG/0.4 ML SYR SC SCH (18:12)
[2022-07-08] VITALS (7 sets, daily range): BP systolic 123–143; BP diastolic 72–92
[2022-07-08] MEDS: CEPACOL SORE THROAT LOZENGES PO PRN (01:08)
[2022-07-08] MEDS: Morphine 4mg INJECTION 4 MG/ML INJ IV PRN ×3 (01:55→16:17)
[2022-07-08] MEDS: SODIUM CHLORIDE 0.9% 1000ML 1,000 ML IV SCH ×2 (01:57→15:09)
[2022-07-08 05:03] LABS: BASOPHILS % 0.7 % (0.0-1.0); EOSINOPHILS # (AUTO) 0.3 (0.0-0.4); EOSINOPHILS % 4.6 % (0.0-6.0); HEMATOCRIT 28.6 % (34.2-44.1); HEMOGLOBIN 9.3 g/dL (12.0-16.0); LYMPHOCYTES # (AUTO) 1.2 (1.0-3.2); LYMPHOCYTES % 22.4 % (18.0-39.1); MEAN CORPUSCULAR HEMOGLOBIN 28.3 pg (28-32); MEAN CORPUSCULAR HGB CONC 32.5 g/dL (31-35); MEAN CORPUSCULAR VOLUME 86.9 fL (81-99); MONOCYTES # (AUTO) 0.4 (0.2-0.8); MONOCYTES % 8.1 % (4.4-11.3); NEUTROPHILS # (AUTO) 3.4 (2.1-6.9); NEUTROPHILS % 62.9 % (38.7-80.0); PLATELET COUNT 198 x10e3/uL (140-360); RED BLOOD COUNT 3.29 x10e6/uL (3.6-5.1); RED CELL DISTRIBUTION WIDTH 14.7 % (11.7-14.4)
[2022-07-08 05:25] LABS: CALCIUM 8.2 mg/dL (8.4-10.2); CREATININE, SERUM 0.74 mg/dL (0.57-1.11); MAGNESIUM 1.4 MG/DL (1.3-2.1)
[2022-07-08] MEDS: CEFAZOLIN SODIUM 2 GM in SODIUM CHLORIDE 0.9% 100 ML IV SCH ×3 (05:32→21:15)
[2022-07-08 06:58] LABS: EOSINOPHILS % (MANUAL) 5 % (0-7); LYMPHOCYTES % (MANUAL) 21 % (19-48); MONOCYTES % (MANUAL) 7 % (3.4-9.0); NEUTROPHILS % (MANUAL) 66 % (40-74); PLATELET ESTIMATE ADEQUATE; PLATELET MORPHOLOGY COMMENT FEW LARGE; RBC MORPHOLOGY COMMENT NORMAL
[2022-07-08] MEDS: INSULIN REGULAR, HUMAN 100 UNIT/1 ML SQ SCH ×4 (07:30→21:00)
[2022-07-08] MEDS: ONDANSETRON HCL 4 MG ORAL DISINTEGRATING TAB PO PRN ×2 (09:57→16:16)
[2022-07-08] MEDS: LOSARTAN POTASSIUM 100 MG TAB PO SCH (09:58)
[2022-07-08] MEDS: MULTIVITAMINS/MINERALS TAB PO SCH (09:58)
[2022-07-08] MEDS: FENOFIBRATE 145 MG TAB PO SCH (09:59)
[2022-07-08] MEDS: DOCUSATE SODIUM 100 MG CAP PO SCH ×2 (09:59→16:16)
[2022-07-08] MEDS: FAMOTIDINE 20 MG TAB PO SCH (09:59)
[2022-07-08] MEDS: GABAPENTIN 100 MG CAP PO SCH ×2 (09:59→21:14)
[2022-07-08] MEDS: ENOXAPARIN SOD INJ 40 MG/0.4 ML SYR SC SCH (16:17)
[2022-07-08] MEDS: ACETAMINOPHEN 325 MG TAB PO PRN (21:39)
[2022-07-09] MEDS: SODIUM CHLORIDE 0.9% 1000ML 1,000 ML IV SCH (04:25)
[2022-07-09 05:58] LABS: FERRITIN 104.21 ng/mL (4.63-204.00)
[2022-07-09] MEDS: CEFAZOLIN SODIUM 2 GM in SODIUM CHLORIDE 0.9% 100 ML IV SCH (06:15)
[2022-07-09] MEDS: INSULIN REGULAR, HUMAN 100 UNIT/1 ML SQ SCH ×2 (07:30→11:30)
[2022-07-09 08:28] VITALS: BP 142/76
[2022-07-09 09:00] VITALS: BP 142/76
[2022-07-09] MEDS: FAMOTIDINE 20 MG TAB PO SCH (10:06)
[2022-07-09] MEDS: GABAPENTIN 100 MG CAP PO SCH (10:06)
[2022-07-09] MEDS: FENOFIBRATE 145 MG TAB PO SCH (10:06)
[2022-07-09] MEDS: DOCUSATE SODIUM 100 MG CAP PO SCH (10:06)
[2022-07-09] MEDS: MULTIVITAMINS/MINERALS TAB PO SCH (10:06)
[2022-07-09] MEDS: ONDANSETRON HCL 4 MG ORAL DISINTEGRATING TAB PO PRN (10:07)
[2022-07-09] MEDS: Morphine 4mg INJECTION 4 MG/ML INJ IV PRN (10:07)
[2022-07-09] MEDS: LOSARTAN POTASSIUM 100 MG TAB PO SCH (10:07)
[2022-07-09] MEDS ORDERED: CEPHALEXIN500 MG PO (11:35)
== END 2022-07-09 13:55 | disposition home or self-care (01) | DRG 872 ==
LOC: ER 18:30 → ERHOLD 22:01 → MED/SURG 07-04 09:57 → OBSVTOIN 07-04 11:11 → INTOOBSV 07-04 11:12
PROVIDERS: ADMIT Internal Medicine; ATTEND Internal Medicine
DX: A41.51 Sepsis due to Escherichia coli [E. coli] (principal); N13.6 Pyonephrosis; N17.9 Acute kidney failure, unspecified; N12 Tubulo-interstitial nephritis, not specified as acute or chronic; E87.1 Hypo-osmolality and hyponatremia; R65.20 Severe sepsis without septic shock; B96.20 Unspecified Escherichia coli [E. coli] as the cause of diseases classified elsewhere; R31.29 Other microscopic hematuria; I10 Essential (primary) hypertension; J45.909 Unspecified asthma, uncomplicated; F41.9 Anxiety disorder, unspecified; F32.A Depression, unspecified; K21.9 Gastro-esophageal reflux disease without esophagitis; E78.5 Hyperlipidemia, unspecified; E11.40 Type 2 diabetes mellitus with diabetic neuropathy, unspecified; E11.65 Type 2 diabetes mellitus with hyperglycemia; I25.10 Atherosclerotic heart disease of native coronary artery without angina pectoris; K59.00 Constipation, unspecified; D64.9 Anemia, unspecified; R81 Glycosuria; Z91.14 Patient's other noncompliance with medication regimen; N28.1 Cyst of kidney, acquired; Z20.822 Contact with and (suspected) exposure to COVID-19; Z79.84 Long term (current) use of oral hypoglycemic drugs; Z90.49 Acquired absence of other specified parts of digestive tract
CPT/HCPCS: 0223U; 36415; 70450; 71045; 74177; 80048; 80053; 81001; 82550; 82553; 82607; 82728; 82746; 82948; 83540; 83605; 83690; 83735; 84466; 84484; 85025; 87040; 87071; 87086; 87186; 87205; 87400; 93005; 94799; 96372; 99252; 99284; G0378; J1580; J1650; J1817; J2270; J2405; J2543; J3010; J3370; J7030; J7050; Q0162; Q9967

== ENCOUNTER 2024-02-23 11:56 | Emergency (ER) | payer MEDICARE ==
[~2024-02-23] VITALS: Ht 160 cm; Wt 65.8 kg
[~2024-02-23 11:56] MED LIST changes: +CEPHALEXIN500 MG PO; +GLIPIZIDE XL2.5 MG PO; +ONDANSETRON ODT4 MG PO; +PROTONIX20 MG PO; +ULTRAM 50MG50 MG PO
[2024-02-23 12:00] VITALS: TEMP 97
[2024-02-23 12:30] VITALS: PULSE 69; RESP 16
[2024-02-23] MEDS: DICYCLOMINE HCL 20 MG/2 ML VIAL IM ONE (12:57)
[2024-02-23] MEDS: ONDANSETRON HCL 4 MG ORAL DISINTEGRATING TAB PO ONE (12:58)
[2024-02-23 13:00] VITALS: BP 143/75; PULSE 70; RESP 16; O2SAT 97
== END 2024-02-23 13:04 | disposition home or self-care (01) ==
LOC: ER 12:14
DX: R68.2 Dry mouth, unspecified (principal); I10 Essential (primary) hypertension; E11.40 Type 2 diabetes mellitus with diabetic neuropathy, unspecified; K76.9 Liver disease, unspecified; E78.5 Hyperlipidemia, unspecified; J45.909 Unspecified asthma, uncomplicated; F41.9 Anxiety disorder, unspecified; K21.9 Gastro-esophageal reflux disease without esophagitis
CPT/HCPCS: 99282

== ENCOUNTER 2024-02-23 13:36 | Emergency (ER) | payer MEDICARE ==
[~2024-02-23] VITALS: Ht 160 cm; Wt 65.8 kg
[2024-02-23 14:01] VITALS: PULSE 73; RESP 18; TEMP 98.5; O2SAT 99
== END 2024-02-23 14:26 | disposition home or self-care (01) ==
LOC: ER 13:46
DX: R42 Dizziness and giddiness (principal); I10 Essential (primary) hypertension; E11.40 Type 2 diabetes mellitus with diabetic neuropathy, unspecified; E78.5 Hyperlipidemia, unspecified; K21.9 Gastro-esophageal reflux disease without esophagitis; F41.9 Anxiety disorder, unspecified; F32.A Depression, unspecified
CPT/HCPCS: 36415; 82948; 99282

== ENCOUNTER 2024-03-10 15:47 | Inpatient (IN) | payer MEDICARE ==
[~2024-03-10] VITALS: Ht 160 cm; Wt 65.8 kg
[2024-03-10] MEDS ORDERED: SODIUM CHLORIDE FLUSH 10 ML SYR IV PRN (16:15)
[2024-03-10 16:20] LABS: BASOPHILS # (AUTO) 0.1 (0.0-0.1); BASOPHILS % 0.8 % (0.0-1.0); EOSINOPHILS # (AUTO) 0.2 (0.0-0.4); EOSINOPHILS % 2.5 % (0.0-6.0); HEMATOCRIT 38.6 % (34.2-44.1); HEMOGLOBIN 12.1 g/dL (12.0-16.0); LYMPHOCYTES # (AUTO) 1.6 (1.0-3.2); LYMPHOCYTES % 26.6 % (18.0-39.1); MEAN CORPUSCULAR HEMOGLOBIN 29.3 pg (28-32); MEAN CORPUSCULAR HGB CONC 31.3 g/dL (31-35); MEAN CORPUSCULAR VOLUME 93.5 fL (81-99); MONOCYTES # (AUTO) 0.4 (0.2-0.8); MONOCYTES % 6.2 % (4.4-11.3); NEUTROPHILS # (AUTO) 3.8 (2.1-6.9); NEUTROPHILS % 62.9 % (38.7-80.0); PLATELET COUNT 217 x10e3/uL (140-360); RED BLOOD COUNT 4.13 x10e6/uL (3.6-5.1); RED CELL DISTRIBUTION WIDTH 14.8 % (11.7-14.4); WHITE BLOOD COUNT 6.01 x10e3/uL (4.8-10.8)
[2024-03-10 16:37] LABS: ALANINE AMINOTRANSFERASE 24 IU/L (0-55); ALBUMIN 3.9 g/dL (3.5-5.0); ALBUMIN/GLOBULIN RATIO 1.1 (0.8-2.0); ALKALINE PHOSPHATASE 56 IU/L (40-150); ANION GAP 16.4 mmol/L (8-16); BILIRUBIN,TOTAL 0.3 mg/dL (0.2-1.2); BLOOD UREA NITROGEN 28 mg/dL (7-26); BUN/CREATININE RATIO 26 (6-25); CALCIUM 10.4 mg/dL (8.4-10.2); CARBON DIOXIDE 22 mmol/L (22-29); CHLORIDE 105 mmol/L (98-107); CREATININE, SERUM 1.09 mg/dL (0.57-1.11); EST GLOMERULAR FILTRATION RATE 56 ML/MIN (>=60); GLUCOSE 107 mg/dL (74-118); POTASSIUM 4.4 mmol/L (3.5-5.1); SODIUM 139 mmol/L (136-145); TOTAL PROTEIN 7.6 g/dL (6.5-8.1)
[2024-03-10 16:52] LABS: TROPONIN I < 0.05 ng/mL (0.0-0.40)
[2024-03-10] MEDS: ASPIRIN 81 MG CHEW TAB PO ONE ×2 (17:00→18:20)
[2024-03-10] MEDS ORDERED: SODIUM CHLORIDE FLUSH 10 ML SYR INJ PRN (17:45)
[2024-03-10] MEDS ORDERED: ONDANSETRON HCL INJ 2MG/ML 2ML 2 MG/ML VIAL IV PRN (17:45)
[2024-03-10 18:15] VITALS: PULSE 65; RESP 19
[2024-03-10 23:30] VITALS: TEMP 98.5
[2024-03-11] VITALS (10 sets, daily range): BP systolic 120–166; BP diastolic 75–98; PULSE 56–78; RESP 16–20; TEMP 97.7–98.6; O2SAT 96–100
[2024-03-11 00:49] LABS: TROPONIN I 0.005 ng/mL (0-0.300)
[2024-03-11] MEDS ORDERED: INFLUENZA VIRUS VAC SPLIT INJ 0.5 ML SYR IM SCH (01:19)
[2024-03-11 06:22] LABS: BASOPHILS % 0.7 % (0.0-1.0); EOSINOPHILS # (AUTO) 0.2 (0.0-0.4); EOSINOPHILS % 3.6 % (0.0-6.0); HEMATOCRIT 34.6 % (34.2-44.1); HEMOGLOBIN 11.1 g/dL (12.0-16.0); LYMPHOCYTES # (AUTO) 1.8 (1.0-3.2); LYMPHOCYTES % 31.7 % (18.0-39.1); MEAN CORPUSCULAR HEMOGLOBIN 29.3 pg (28-32); MEAN CORPUSCULAR HGB CONC 32.1 g/dL (31-35); MEAN CORPUSCULAR VOLUME 91.3 fL (81-99); MONOCYTES # (AUTO) 0.4 (0.2-0.8); MONOCYTES % 7.1 % (4.4-11.3); NEUTROPHILS # (AUTO) 3.1 (2.1-6.9); NEUTROPHILS % 56.2 % (38.7-80.0); PLATELET COUNT 196 x10e3/uL (140-360); RED BLOOD COUNT 3.79 x10e6/uL (3.6-5.1); RED CELL DISTRIBUTION WIDTH 14.7 % (11.7-14.4); WHITE BLOOD COUNT 5.52 x10e3/uL (4.8-10.8)
[2024-03-11 06:55] LABS: ALBUMIN 3.5 g/dL (3.5-5.0); ALBUMIN/GLOBULIN RATIO 1.1 (0.8-2.0); ANION GAP 12.6 mmol/L (8-16); BILIRUBIN,TOTAL 0.4 mg/dL (0.2-1.2); CALCIUM 9.8 mg/dL (8.4-10.2); CREATININE, SERUM 0.88 mg/dL (0.57-1.11); POTASSIUM 3.6 mmol/L (3.5-5.1); TOTAL PROTEIN 6.7 g/dL (6.5-8.1)
[2024-03-11 07:38] LABS: TROPONIN I 0.011 ng/mL (0-0.300)
[2024-03-11 14:54] LABS: CREATINE KINASE 98 IU/L (29-168)
[2024-03-11 15:00] LABS: TROPONIN I < 0.001 ng/mL (0-0.300)
[2024-03-11] MEDS ORDERED: DEXTROSE 50% SYRINGE 50 ML IV PRN ×2 (17:00→23:15)
[2024-03-11] MEDS ORDERED: ALBUTEROL SULF 0.083% NEB SOLN 3 ML NEB INH PRN (17:00)
[2024-03-11] MEDS: METFORMIN HCL 500 MG TAB PO SCH (17:00)
[2024-03-11] MEDS: GABAPENTIN 100 MG CAP PO SCH (17:47)
[2024-03-11] MEDS: DOCUSATE SODIUM 100 MG CAP PO SCH (17:47)
[2024-03-11] MEDS: METHOCARBAMOL 500 MG TAB PO SCH (17:47)
[2024-03-11] MEDS: PANTOPRAZOLE SODIUM 20 MG TABLET.DR PO SCH (17:47)
[2024-03-11] MEDS ORDERED: ONDANSETRON HCL 4 MG ORAL DISINTEGRATING TAB PO SCH (18:00)
[2024-03-11] MEDS ORDERED: TRAMADOL HCL 50 MG TAB PO SCH (18:00)
[2024-03-11] MEDS: ACETAMINOPHEN 325 MG TAB PO PRN (23:22)
[2024-03-12] VITALS (11 sets, daily range): BP systolic 125–144; BP diastolic 78–92; PULSE 58–78; RESP 16–18; TEMP 97.2–98.2; O2SAT 96–100
[2024-03-12] MEDS: INSULIN LISPRO 100 UNIT/1 ML 3ML VIAL SQ SCH (07:30)
[2024-03-12] MEDS ORDERED: METFORMIN HCL 500 MG TAB PO SCH (08:00)
[2024-03-12] MEDS: LOSARTAN POTASSIUM 25 MG TAB PO SCH (08:48)
[2024-03-12] MEDS: FAMOTIDINE 20 MG TAB PO SCH (08:48)
[2024-03-12] MEDS: FENOFIBRATE 145 MG TAB PO SCH (08:48)
[2024-03-12] MEDS: ASPIRIN 81 MG CHEW TAB PO SCH (08:48)
[2024-03-12] MEDS ORDERED: PANTOPRAZOLE SOD 40 MG TABEC PO SCH (09:00)
[2024-03-12] MEDS: GLIPIZIDE 2.5 MG TABCR PO SCH (10:07)
[2024-03-12 16:08] LABS: CHOL/HDL RATIO 3.2 (3.0-3.6)
[2024-03-13] VITALS (10 sets, daily range): BP systolic 123–151; BP diastolic 74–89; PULSE 58–86; RESP 17–20; TEMP 97.2–98.3; O2SAT 95–100
[2024-03-13] MEDS: LACTULOSE SYRUP 20 GM/30 ML UDC PO PRN (13:38)
[2024-03-13] MEDS ORDERED: Morphine 2mg Syringe 2 MG/ML SYR IV PRN (21:45)
[2024-03-14] VITALS (10 sets, daily range): BP systolic 24–153; BP diastolic 64–77; PULSE 57–73; RESP 17–22; TEMP 97.7–98.8; O2SAT 96–100
[2024-03-14] MEDS: LORAZEPAM INJ 2 MG/ML VIAL IV ONE (05:34)
[2024-03-14] MEDS ORDERED: REGADENOSON 0.4 MG/5 ML SYR IV ONE (08:15)
[2024-03-15] VITALS (9 sets, daily range): BP systolic 115–144; BP diastolic 62–86; PULSE 57–70; RESP 16–20; TEMP 97.6–98.2; O2SAT 94–100
[2024-03-16] VITALS (10 sets, daily range): BP systolic 118–136; BP diastolic 66–79; PULSE 58–72; RESP 16–18; TEMP 97.5–97.7; O2SAT 95–100
== END 2024-03-16 18:36 | disposition home or self-care (01) | DRG 313 ==
LOC: ER 16:00 → ERHOLD 17:40 → MED/SURG3 03-11 00:09 → OBSVTOIN 03-12 11:55
PROVIDERS: ADMIT Internal Medicine; ATTEND Internal Medicine
DX: R07.89 Other chest pain (principal); E11.9 Type 2 diabetes mellitus without complications; F41.9 Anxiety disorder, unspecified; I10 Essential (primary) hypertension; E78.5 Hyperlipidemia, unspecified; F32.A Depression, unspecified; K21.9 Gastro-esophageal reflux disease without esophagitis; J45.909 Unspecified asthma, uncomplicated; Z79.84 Long term (current) use of oral hypoglycemic drugs; Z90.49 Acquired absence of other specified parts of digestive tract; Z83.3 Family history of diabetes mellitus; Z82.49 Family history of ischemic heart disease and other diseases of the circulatory system
CPT/HCPCS: 36415; 70450; 71046; 78452; 80053; 80061; 82550; 82948; 83036; 83880; 84484; 85025; 93005; 93017; 93306; 94760; 94799; 96372; 99284; A9502; G0378; J2060

== ENCOUNTER 2024-03-18 22:08 | Emergency (ER) | payer MEDICARE ==
[~2024-03-18] VITALS: Ht 160 cm; Wt 68.0 kg
[2024-03-18] MEDS: FAMOTIDINE 20 MG/2 ML VIAL IV STA (22:30)
[2024-03-18] MEDS: SODIUM CHLORIDE 0.9% 1000ML 1,000 ML IV STA (22:30)
[2024-03-18 22:41] LABS: BASOPHILS # (AUTO) 0.1 (0.0-0.1); BASOPHILS % 0.8 % (0.0-1.0); EOSINOPHILS # (AUTO) 0.1 (0.0-0.4); EOSINOPHILS % 1.9 % (0.0-6.0); HEMATOCRIT 37.9 % (34.2-44.1); HEMOGLOBIN 12.1 g/dL (12.0-16.0); LYMPHOCYTES # (AUTO) 1.6 (1.0-3.2); LYMPHOCYTES % 26.1 % (18.0-39.1); MEAN CORPUSCULAR HEMOGLOBIN 29.5 pg (28-32); MEAN CORPUSCULAR HGB CONC 31.9 g/dL (31-35); MEAN CORPUSCULAR VOLUME 92.4 fL (81-99); MONOCYTES # (AUTO) 0.3 (0.2-0.8); MONOCYTES % 5.3 % (4.4-11.3); NEUTROPHILS % 65.1 % (38.7-80.0); PLATELET COUNT 205 x10e3/uL (140-360); RED CELL DISTRIBUTION WIDTH 14.4 % (11.7-14.4); WHITE BLOOD COUNT 6.17 x10e3/uL (4.8-10.8)
[2024-03-18 22:43] LABS: BILIRUBIN,URINE NEGATIVE (NEGATIVE); CLARITY,URINE CLEAR (CLEAR); COLOR,URINE YELLOW (YELLOW); GLUCOSE, URINE 500 (NEGATIVE); KETONES,URINE NEGATIVE (NEGATIVE); LEUKOCYTE ESTERASE ,URINE NEGATIVE (NEGATIVE); NITRITE,URINE NEGATIVE (NEGATIVE); PH,URINE 6.5 (5 - 7); PROTEIN,URINE DIPSTICK NEGATIVE (NEGATIVE); URINE UROBILINOGEN 0.2 mg/dL (0.2 - 1)
[2024-03-18 22:55] LABS: BACTERIA,URINE FEW /HPF; EPITHELIAL CELLS,URINE FEW /LPF; RBC,URINE 0-5 /HPF (0-5); WBC,URINE (MAN) 0-5 /HPF (0-5)
[2024-03-18 22:58] LABS: ALBUMIN/GLOBULIN RATIO 1.1 (0.8-2.0); ANION GAP 15.7 mmol/L (8-16); BILIRUBIN,TOTAL 0.6 mg/dL (0.2-1.2); CALCIUM 10.4 mg/dL (8.4-10.2); CREATININE, SERUM 1.04 mg/dL (0.57-1.11); POTASSIUM 3.7 mmol/L (3.5-5.1); TOTAL PROTEIN 7.8 g/dL (6.5-8.1)
[2024-03-18 23:10] LABS: TROPONIN I 0.003 ng/mL (0-0.300)
[2024-03-18] MEDS ORDERED: IOPAMIDOL 370 MG/ML 100 ML INFUS..BTL INJ ONE (23:50)
[2024-03-19] MEDS: DONNATAL/LIDOCAINE/MAALOX 30 ML SUSP PO STA (00:42)
[2024-03-19] MEDS ORDERED: BELLADONNA ALK/PHENOBARBITAL 5 ML UDC ONE (00:45)
[2024-03-19] MEDS ORDERED: MAGNESIUM/ALUMINUM/SIMETHICONE 30 ML UDC ONE (00:45)
[2024-03-19] MEDS ORDERED: LIDOCAINE VISC 2% SOLN 15 ML UDC ONE (00:45)
[2024-03-19 01:54] VITALS: PULSE 63; RESP 18; TEMP 98.3; O2SAT 100
== END 2024-03-19 01:55 | disposition home or self-care (01) ==
LOC: ER 22:15
DX: R10.13 Epigastric pain (principal); K57.10 Diverticulosis of small intestine without perforation or abscess without bleeding; K76.0 Fatty (change of) liver, not elsewhere classified; E11.65 Type 2 diabetes mellitus with hyperglycemia; I10 Essential (primary) hypertension; J45.909 Unspecified asthma, uncomplicated; E78.5 Hyperlipidemia, unspecified; K21.9 Gastro-esophageal reflux disease without esophagitis; F41.9 Anxiety disorder, unspecified; R94.31 Abnormal electrocardiogram [ECG] [EKG]
CPT/HCPCS: 36415; 74177; 80053; 81001; 82550; 83690; 84484; 85025; 93005; 99284; J7030; Q9967

== ENCOUNTER 2024-04-10 10:54 | Emergency (ER) | payer MEDICARE ==
[~2024-04-10] VITALS: Ht 160 cm; Wt 65.8 kg
[2024-04-10 11:05] VITALS: PULSE 64; RESP 16; TEMP 98
[2024-04-10] MEDS ORDERED: BELLADONNA ALK/PHENOBARBITAL 5 ML UDC PO STA (11:29)
[2024-04-10] MEDS ORDERED: MAGNESIUM/ALUMINUM/SIMETHICONE 30 ML UDC PO ONE (11:30)
[2024-04-10] MEDS ORDERED: LIDOCAINE VISC 2% SOLN 15 ML UDC PO ONE (11:30)
[2024-04-10 11:49] LABS: BASOPHILS # (AUTO) 0.1 (0.0-0.1); BASOPHILS % 0.4 % (0.0-1.0); EOSINOPHILS % 0.1 % (0.0-6.0); HEMATOCRIT 42.6 % (34.2-44.1); HEMOGLOBIN 14.6 g/dL (12.0-16.0); LYMPHOCYTES # (AUTO) 0.6 (1.0-3.2); LYMPHOCYTES % 4.7 % (18.0-39.1); MEAN CORPUSCULAR HEMOGLOBIN 30.1 pg (28-32); MEAN CORPUSCULAR HGB CONC 34.3 g/dL (31-35); MEAN CORPUSCULAR VOLUME 87.8 fL (81-99); MONOCYTES # (AUTO) 0.8 (0.2-0.8); MONOCYTES % 6.6 % (4.4-11.3); NEUTROPHILS # (AUTO) 11.1 (2.1-6.9); NEUTROPHILS % 87.4 % (38.7-80.0); PLATELET COUNT 199 x10e3/uL (140-360); RED BLOOD COUNT 4.85 x10e6/uL (3.6-5.1); RED CELL DISTRIBUTION WIDTH 14.6 % (11.7-14.4); WHITE BLOOD COUNT 12.64 x10e3/uL (4.8-10.8)
[2024-04-10] MEDS: DONNATAL/LIDOCAINE/MAALOX 30 ML SUSP PO ONE (11:54)
[2024-04-10 12:07] LABS: ALBUMIN 4.6 g/dL (3.5-5.0); ALBUMIN/GLOBULIN RATIO 1.2 (0.8-2.0); ANION GAP 22.8 mmol/L (8-16); BILIRUBIN,TOTAL 1.4 mg/dL (0.2-1.2); CALCIUM 10.8 mg/dL (8.4-10.2); CREATININE, SERUM 1.35 mg/dL (0.57-1.11); POTASSIUM 3.8 mmol/L (3.5-5.1); TOTAL PROTEIN 8.6 g/dL (6.5-8.1)
[2024-04-10] MEDS: LACTATED RINGER'S 1,000 ML INJ ONE (12:32)
[2024-04-10 12:43] LABS: CLARITY,URINE CLEAR (CLEAR); COLOR,URINE YELLOW (YELLOW); LEUKOCYTE ESTERASE ,URINE NEGATIVE (NEGATIVE); NITRITE,URINE NEGATIVE (NEGATIVE); PH,URINE 5.5 (5 - 7); PROTEIN,URINE DIPSTICK 1+ (NEGATIVE)
[2024-04-10 12:44] LABS: BILIRUBIN,URINE NEGATIVE (NEGATIVE); GLUCOSE, URINE 500 (NEGATIVE); KETONES,URINE 1+ (NEGATIVE); URINE UROBILINOGEN 0.2 mg/dL (0.2 - 1)
[2024-04-10 12:48] LABS: BACTERIA,URINE MODERATE /HPF; EPITHELIAL CELLS,URINE MODERATE /LPF
[2024-04-10] MEDS ORDERED: CEFDINIR300 MG PO (12:59)
[2024-04-10] MEDS ORDERED: PEPCID20 MG PO (12:59)
[2024-04-10 13:39] VITALS: BP 144/78; PULSE 68; RESP 18; TEMP 97.3; O2SAT 97
== END 2024-04-10 14:14 | disposition home or self-care (01) ==
LOC: ER 11:39
DX: R10.33 Periumbilical pain (principal); K29.70 Gastritis, unspecified, without bleeding; N39.0 Urinary tract infection, site not specified; R30.0 Dysuria; I10 Essential (primary) hypertension; E11.65 Type 2 diabetes mellitus with hyperglycemia; E11.40 Type 2 diabetes mellitus with diabetic neuropathy, unspecified; E78.5 Hyperlipidemia, unspecified; K21.9 Gastro-esophageal reflux disease without esophagitis; J45.909 Unspecified asthma, uncomplicated; B19.10 Unspecified viral hepatitis B without hepatic coma; F41.9 Anxiety disorder, unspecified
CPT/HCPCS: 36415; 80053; 81001; 85025; 99284; J2470; J7121

== ENCOUNTER 2024-06-18 12:00 | Emergency (ER) | payer MEDICARE ==
[~2024-06-18] VITALS: Ht 160 cm; Wt 65.8 kg
[~2024-06-18 12:00] MED LIST changes: +CEFDINIR300 MG PO; +PEPCID20 MG PO
[2024-06-18 12:05] VITALS: PULSE 70; RESP 15; TEMP 98.7
[2024-06-18 13:12] LABS: BASOPHILS % 0.6 % (0.0-1.0); EOSINOPHILS # (AUTO) 0.2 (0.0-0.4); EOSINOPHILS % 4.5 % (0.0-6.0); HEMATOCRIT 33.6 % (34.2-44.1); HEMOGLOBIN 11.2 g/dL (12.0-16.0); LYMPHOCYTES % 20.4 % (18.0-39.1); MEAN CORPUSCULAR HEMOGLOBIN 29.4 pg (28-32); MEAN CORPUSCULAR HGB CONC 33.3 g/dL (31-35); MEAN CORPUSCULAR VOLUME 88.2 fL (81-99); MONOCYTES # (AUTO) 0.4 (0.2-0.8); MONOCYTES % 8.6 % (4.4-11.3); NEUTROPHILS # (AUTO) 3.2 (2.1-6.9); NEUTROPHILS % 65.3 % (38.7-80.0); PLATELET COUNT 165 x10e3/uL (140-360); RED BLOOD COUNT 3.81 x10e6/uL (3.6-5.1); RED CELL DISTRIBUTION WIDTH 13.6 % (11.7-14.4)
[2024-06-18] MEDS: SODIUM CHLORIDE 0.9% 1000ML 1,000 ML IV STA (13:15)
[2024-06-18] MEDS: DICYCLOMINE HCL 20 MG/2 ML VIAL IM ONE (13:16)
[2024-06-18] MEDS: ONDANSETRON HCL INJ 2MG/ML 2ML 2 MG/ML VIAL IV PRN (13:17)
[2024-06-18 13:45] LABS: ALBUMIN 3.7 g/dL (3.5-5.0); ALBUMIN/GLOBULIN RATIO 1.3 (0.8-2.0); BILIRUBIN,TOTAL 0.4 mg/dL (0.2-1.2); CALCIUM 9.4 mg/dL (8.4-10.2); CREATININE, SERUM 0.94 mg/dL (0.57-1.11); TOTAL PROTEIN 6.6 g/dL (6.5-8.1)
[2024-06-18 14:57] LABS: CLARITY,URINE CLEAR (CLEAR); COLOR,URINE YELLOW (YELLOW); GLUCOSE, URINE NEGATIVE (NEGATIVE); KETONES,URINE NEGATIVE (NEGATIVE); LEUKOCYTE ESTERASE ,URINE NEGATIVE (NEGATIVE); NITRITE,URINE NEGATIVE (NEGATIVE); PH,URINE 7 (5 - 7); PROTEIN,URINE DIPSTICK NEGATIVE (NEGATIVE)
[2024-06-18 14:58] LABS: BILIRUBIN,URINE NEGATIVE (NEGATIVE); URINE UROBILINOGEN 0.2 mg/dL (0.2 - 1)
[2024-06-18 15:05] LABS: EPITHELIAL CELLS,URINE MODERATE /LPF; WBC,URINE (MAN) 0-5 /HPF (0-5)
[2024-06-18] MEDS ORDERED: DICYCLOMINE HCL20 MG PO (15:34)
[2024-06-18] MEDS ORDERED: IOPAMIDOL 370 MG/ML 100 ML INFUS..BTL INJ ONE (15:37)
[2024-06-18 15:39] VITALS: BP 125/84; PULSE 78; RESP 18; TEMP 98.6; O2SAT 98
== END 2024-06-18 15:39 | disposition home or self-care (01) ==
LOC: ER 12:21
DX: R10.32 Left lower quadrant pain (principal); K52.9 Noninfective gastroenteritis and colitis, unspecified; I10 Essential (primary) hypertension; E11.65 Type 2 diabetes mellitus with hyperglycemia; E11.40 Type 2 diabetes mellitus with diabetic neuropathy, unspecified; E78.5 Hyperlipidemia, unspecified; K21.9 Gastro-esophageal reflux disease without esophagitis; F41.9 Anxiety disorder, unspecified; F32.A Depression, unspecified
CPT/HCPCS: 36415; 74177; 80053; 81001; 83690; 85025; 99284; J0500; J2405; J7030; Q9967

== ENCOUNTER 2024-09-22 10:41 | Emergency (ER) | payer MEDICARE ==
[~2024-09-22] VITALS: Ht 160 cm; Wt 70.8 kg
[~2024-09-22 10:41] MED LIST changes: +DICYCLOMINE HCL20 MG PO
[2024-09-22 11:20] VITALS: TEMP 97.2
[2024-09-22] MEDS: SODIUM CHLORIDE 0.9% 1000ML 1,000 ML IV STA (12:43)
[2024-09-22 12:52] LABS: BASOPHILS # (AUTO) 0.1 (0.0-0.1); BASOPHILS % 0.8 % (0.0-1.0); EOSINOPHILS # (AUTO) 0.6 (0.0-0.4); EOSINOPHILS % 8.2 % (0.0-6.0); HEMATOCRIT 39.3 % (34.2-44.1); HEMOGLOBIN 12.5 g/dL (12.0-16.0); LYMPHOCYTES # (AUTO) 1.1 (1.0-3.2); LYMPHOCYTES % 16.1 % (18.0-39.1); MEAN CORPUSCULAR HEMOGLOBIN 28.6 pg (28-32); MEAN CORPUSCULAR HGB CONC 31.8 g/dL (31-35); MEAN CORPUSCULAR VOLUME 89.9 fL (81-99); MONOCYTES # (AUTO) 0.4 (0.2-0.8); MONOCYTES % 5.2 % (4.4-11.3); NEUTROPHILS # (AUTO) 4.9 (2.1-6.9); NEUTROPHILS % 69.1 % (38.7-80.0); PLATELET COUNT 222 x10e3/uL (140-360); RED BLOOD COUNT 4.37 x10e6/uL (3.6-5.1); RED CELL DISTRIBUTION WIDTH 15.8 % (11.7-14.4); WHITE BLOOD COUNT 7.08 x10e3/uL (4.8-10.8)
[2024-09-22 13:04] LABS: CLARITY,URINE CLEAR (CLEAR); COLOR,URINE YELLOW (YELLOW); PH,URINE 6 (5 - 7)
[2024-09-22 13:05] LABS: BACTERIA,URINE FEW /HPF; BILIRUBIN,URINE NEGATIVE (NEGATIVE); EPITHELIAL CELLS,URINE FEW /LPF; GLUCOSE, URINE 2+ (NEGATIVE); KETONES,URINE NEGATIVE (NEGATIVE); LEUKOCYTE ESTERASE ,URINE NEGATIVE (NEGATIVE); NITRITE,URINE NEGATIVE (NEGATIVE); PROTEIN,URINE DIPSTICK NEGATIVE (NEGATIVE); RBC,URINE 0-5 /HPF (0-5); URINE UROBILINOGEN 0.2 mg/dL (0.2 - 1)
[2024-09-22 13:06] LABS: INR 1.01; PROTHROMBIN TIME 13.9 seconds (11.9-14.5)
[2024-09-22 13:07] LABS: PARTIAL THROMBOPLASTIN TIME 26.3 seconds (23.8-35.5)
[2024-09-22] MEDS ORDERED: KETOROLAC TROMETHAMINE 30 MG/ML VIAL IV ONE (13:15)
[2024-09-22 13:25] LABS: ALBUMIN 4.3 g/dL (3.5-5.0); ALBUMIN/GLOBULIN RATIO 1.2 (0.8-2.0); ANION GAP 15.2 mmol/L (8-16); BILIRUBIN,TOTAL 0.3 mg/dL (0.2-1.2); CALCIUM 9.6 mg/dL (8.4-10.2); CREATININE, SERUM 1.29 mg/dL (0.57-1.11); MAGNESIUM 1.7 MG/DL (1.3-2.1); POTASSIUM 4.2 mmol/L (3.5-5.1)
[2024-09-22 13:43] VITALS: PULSE 58; RESP 16
[2024-09-22] MEDS ORDERED: CEFDINIR300 MG PO (16:08)
[2024-09-22] MEDS ORDERED: IOPAMIDOL 370 MG/ML 100 ML INFUS..BTL INJ ONE (16:40)
[2024-09-22 16:54] VITALS: BP 128/70; PULSE 59; RESP 12; TEMP 97.5; O2SAT 98
== END 2024-09-22 16:38 | disposition home or self-care (01) ==
LOC: ER 11:31
DX: R10.31 Right lower quadrant pain (principal); N39.0 Urinary tract infection, site not specified; F03.90 Unspecified dementia, unspecified severity, without behavioral disturbance, psychotic disturbance, mood disturbance, and anxiety; I10 Essential (primary) hypertension; E11.65 Type 2 diabetes mellitus with hyperglycemia; E78.5 Hyperlipidemia, unspecified; K21.9 Gastro-esophageal reflux disease without esophagitis; K76.9 Liver disease, unspecified; J45.909 Unspecified asthma, uncomplicated; F41.9 Anxiety disorder, unspecified; F32.A Depression, unspecified
CPT/HCPCS: 36415; 74177; 80053; 81001; 83735; 85025; 85610; 85730; 87086; 99284; J7030; Q9967; J1885

== ENCOUNTER 2024-12-28 13:40 | Emergency (ER) | payer MEDICARE ==
[~2024-12-28] VITALS: Ht 160 cm; Wt 72.1 kg
[2024-12-28] MEDS ORDERED: NEURONTIN400 MG PO (14:14)
[2024-12-28] MEDS ORDERED: SODIUM CHLORIDE FLUSH 10 ML SYR IV PRN (14:30)
[2024-12-28] MEDS: SODIUM CHLORIDE 0.9% 1000ML 1,000 ML IV ONE (14:44)
[2024-12-28 14:53] LABS: BASOPHILS % 0.5 % (0.0-1.0); EOSINOPHILS % 1.4 % (0.0-6.0); LYMPHOCYTES % 16.2 % (18.0-39.1); MONOCYTES % 4.4 % (4.4-11.3); NEUTROPHILS % 76.9 % (38.7-80.0); RED CELL DISTRIBUTION WIDTH 15.0 % (11.7-14.4)
[2024-12-28 15:11] LABS: EST GLOMERULAR FILTRATION RATE 49.0 ML/MIN (>=60)
[2024-12-28 15:43] LABS: LEUKOCYTE ESTERASE ,URINE NEGATIVE (NEGATIVE); PROTEIN,URINE DIPSTICK NEGATIVE (NEGATIVE); URINE UROBILINOGEN 0.2 mg/dL (0.2 - 1)
[2024-12-28 15:53] LABS: EPITHELIAL CELLS,URINE FEW /LPF; WBC,URINE (MAN) 0-5 /HPF (0-5)
[2024-12-28 16:00] VITALS: PULSE 65; RESP 20; TEMP 97.7; O2SAT 99
== END 2024-12-28 16:24 | disposition home or self-care (01) ==
LOC: ER 13:54
DX: R53.83 Other fatigue (principal); E11.65 Type 2 diabetes mellitus with hyperglycemia; E11.40 Type 2 diabetes mellitus with diabetic neuropathy, unspecified; I10 Essential (primary) hypertension; J45.909 Unspecified asthma, uncomplicated; K76.9 Liver disease, unspecified; E78.5 Hyperlipidemia, unspecified; K21.9 Gastro-esophageal reflux disease without esophagitis; F03.90 Unspecified dementia, unspecified severity, without behavioral disturbance, psychotic disturbance, mood disturbance, and anxiety; F41.9 Anxiety disorder, unspecified; F32.A Depression, unspecified; R94.31 Abnormal electrocardiogram [ECG] [EKG]
CPT/HCPCS: 36415; 70450; 71045; 80053; 81001; 83880; 84484; 85025; 93005; 94760; 99284; J7030